=== PATIENT | male | born 1970 | race American Indian/Alaskan Native ===

== ENCOUNTER 2024-08-19 07:57 | Outpatient (AMB) | payer BC, SELFPAY ==
--- OUTSIDE RECORDS SUMMARY | 2024-08-19 08:06 | XMS_ITS | Clinical Summary ---
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 Do not start before January 06, 2023. 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 30 packet 01/04/2023 Active Active Problems Problem Noted Date Diagnosed Date Sleep apnea Overview (12/21/2022): USES CPAP Assessment & Plan (12/21/2022 8:23 AM EDT): Wears CPAP as prescribed. Patient to follow up with provider for SAKINA as previously directed. Obesity (BMI 30-39.9) Assessment & Plan (12/21/2022 8:23 AM EDT): BMI: . Diet, exercise and lifestyle modifications. Encounters Date Type Department Care Team Description 06/03/2024 2:30 PM EDT Office Visit [facility] Urologic Surgery [address] [id number] Tavo Sheth MD Anterior urethral stricture (Primary Dx); BXO (balanitis xerotica obliterans) 06/03/2024 Orders Only [facility] Urologic Surgery [address] [id number] Tavo Sheth MD 06/03/2024 Travel from Last 3 Months Family History Medical History Relation Name Comments Lymphoma Daughter chemotherapy an d radiation Colon cancer Father surgery only Esophageal cancer Maternal Grandmother no history of tobacco use Leukemia Mother chemotherapy, r adiation, and bone marrow transplant; around a year after diagnosis Throat cancer Paternal Uncle 2 tobacco us e Prostate cancer Paternal Uncle 3 >50 year s old, of metastatic disease Cancer, Bladder Neg Hx Cancer, Kidney Neg Hx Cancer, Prostate Neg Hx Relation Name Status Comments Daughter Alive Father Alive Granddaughter 1 Alive Granddaughter 2 Alive Granddaughter 3 Alive Maternal Aunt 1 (Age 70) Maternal Aunt 2 Alive Maternal Cousin 1 Alive Maternal Cousin 2 Alive Maternal Cousin 3 Alive Maternal Cousin 4 Alive Maternal Cousin 5 Alive Maternal Cousin 6 Alive Maternal Cousin 7 Alive Maternal Cousin 8 Alive Maternal Cousin 9 Alive Maternal Grandfather Maternal Grandmother (Age 70s) Maternal Uncle 1 Alive Maternal Uncle 2 Alive Mother (Age 40s) Nephew Alive Niece Alive Paternal Aunt 1 Alive Paternal Aunt 2 Alive Paternal Aunt 3 Alive Paternal Cousin 1 Alive Paternal Cousin 2 Alive Paternal Cousin 3 Alive Paternal Cousin 4 Alive Paternal Cousin 5 Alive Paternal Cousin 6 Alive Paternal Cousin 7 Alive Paternal Cousin 8 Alive Paternal Cousin 9 Alive Paternal Cousin 10 Alive Paternal Cousin 11 Alive Paternal Cousin 12 Alive Paternal Cousin 13 Alive Paternal Cousin 14 Alive Paternal Cousin 15 Alive Paternal Cousin 16 Alive Paternal Cousin 17 Alive Paternal Cousin 18 Alive Paternal Cousin 19 Alive Paternal Cousin 20 Alive Paternal Cousin 21 Alive Paternal Grandfather (Age 70-89) Paternal Grandmother (Age 70-89) Paternal Uncle 1 Alive Paternal Uncle 2 Paternal Uncle 3 Paternal Uncle 4 Paternal Uncle 5 Sister Alive Son Alive Social History Tobacco Use Types Packs/Day Years Used Date Smoking Tobacco: Never Smokeless Tobacco: Never Tobacco Cessation:Counseling Given: Not Answered Alcohol Use Standard Drinks/Week Comments Yes 0 (1 standard drink = 0.6 oz pur e alcohol) 2x/week 5-6 drinks AUDIT-C Answer Date Recorded Q1: How often do you have a drink containing alc ohol? 2-3 times a week 12/14/2022 Q2: How many drinks containi ng alcohol do you have on a typical day when you are drinking? 5 or 6 12/14/2022 Q3: How often do you have si x or more drinks on one occasion? Weekly 12/14/2022 Sex and Gender Information Value Date Recorded Sex Assigned at Male 01/04/2023 9:13 AM EDT Legal Sex Male 2:34 PM EDT Gender Identity Male 01/04/2023 9:13 AM EDT Sexual Orientation Not on file Last Filed Vital Signs Vital Sign Reading Time Taken Comments Blood Pressure 136/81 01/04/2023 2:00 PM EDT Pulse 64 01/04/2023 2:05 PM EDT Temperature 36.1 C (97 F) 01/04/2023 2:05 PM EDT Respiratory Rate 12 01/04/2023 2:05 PM EDT Oxygen Saturation 99% 01/04/2023 2:05 PM EDT Inhaled Oxygen Concentration - - Weight 109 kg (240 lb) 06/03/2024 2:23 PM EDT Height 170.2 cm (5' 7 ) 06/03/2024 2:23 PM EDT Body Mass Index 37.59 06/03/2024 2:23 PM EDT Plan of Treatment Upcoming Encounters Date Type Department Care Team (Late st Contact Info) Description 12/08/2024 2:15 PM EDT Office Visit [facility] Urologic Surgery [address] [place] [phone] Pam Herrera PA-C [address] [place] [id number] Health Maintenance Due Date Last Done Comments Hepatitis C Virus Screening 1969 HIV Screening 1982 DTaP/Tdap/Td Vaccines (1 - Tdap) 1988 Hepatitis B Vaccines (1 of 3 - 19+ 3-dose series) 1988 Colonoscopy 2014 Pneumococcal Vaccines 50+ (1 of 1 - PCV) 2019 Zoster (Shingles) Vaccine (1 of 2) 2019 COVID-19 Vaccine (1 - season) 2023 Influenza Vaccine 10/02/2024 2022, 02/08/2021 Procedures Procedure Name Priority Date/Time Associated Diagnosis Comments UROFLOWMETRY Routine 06/03/2024 2:33 PM EDT POCT URINALYSIS DIPSTICK, AUTOMATED Routine 06/03/2024 2:32 PM EDT Anterior urethral stricture BXO (balanitis xerotica obliterans) POCT BLADDER SCAN Routine 06/03/2024 2:3 1 PM EDT Anterior urethral stricture BXO (balanitis xerotica obliterans) from Last 3 Months Results * Uroflowmetry (06/03/2024 2:33 PM EDT) Tavo Sheth MD PROCEDURE ORDERABLES Fin al Result * (ABNORMAL) POCT Urinalysis Dipstick, Automated (06/03/2024 2:32 PM EDT) Source, UA Voided Color, UA Yellow Yellow & Clear, Yellow Clarity, UA Clear Clear Glucose, UA Negative Negative Bilirubin, UA Negative Negative Ketones, UA Negative Negative Spec Grav, UA 1.010 1.005, 1.010, 1.015, 1.020, 1.025 Blood, UA Negative Negative pH, UA 6.0 5.0, 5.5, 6.0, 6.5, 7.0, 7.5, 8.0 Protein, UA Negative Negative Urobilinogen, UA 0.2 0.2, 1.0 Nitrite, UA Negative Negative Leukocyte Esterase, UA Trace(A) Negative Lot Number [id number] Adjunct Professor Of Voice Pass Pass Urine 06/03/2024 2:32 PM EDT Tavo Sheth MD POINT OF CARE TEST ORDERABL ES Final Result * POCT Bladder Scan (06/03/2024 2:31 PM EDT) Bladder Scan, Urine Volume 54 cc Urine 06/03/2024 2:31 PM EDT Tavo Sheth MD POCT ORDERABLES - IMAGING F inal Result from Last 3 Months Insurance [facility] Advance Directives * Full Code (Latest Code Status on File) Date Activated Date Inactivated Comments 01/04/2023 9:37 AM Care Teams Therapeutic Recreation Specialist Relationship Specialty Start Date End Date Alysha Arzate MD PCP - General 07/13/22
--- NOTE | 2024-08-19 12:58 | MHC.OFFVISWM ---
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 *TRACK RIDER*: Details: Start time: 12.45pm, End time: 1.30pm ?I spent 40 minutes speaking with the patient on the phone plus an additional 5 minutes reviewing and updating records for a total of 45 minutes HPI Comments Details: Previous weight loss efforts: self diet and exercise, paid programs Wakes up: 2am, Sleeps: 8pm Breakfast: 8am (gutierrez) Lunch: skips Dinner: 3pm (chicken, meat, avocado, pork, eggs) Snacks: none Exercise: has home treadmill Beverages: Coffee (2-3/d, black), tea: sometimes, soda: none, juice: none, ETOH: 2/wk (beer) PFSH Medical History (Updated 08/19/24 @ 13:13 by Rosas Miranda MD) GERD (gastroesophageal reflux disease) Obstructive sleep apnea on CPAP Obesity Surgical History (Updated 07/20/24 @ 14:51 by Sayra Davis CMA) Hx of colonoscopy Hx of hernia repair Family History (Updated 07/20/24 @ 14:53 by Sayra Davis CMA) Mother No problems noted. Father No problems noted. Daughter Mandel Syndrome Thyroid condition Daughter Thyroid condition Son No problems noted. Social History (Updated 07/20/24 @ 14:54 by Sayra Davis CMA) Alcohol intake: current Alcohol intake frequency: a few times a month Patient Tobacco Use Status: Never used Tobacco Telehealth Telehealth Telehealth Platform: Telephone Location of provider rendering services: practice address Location of patient: address on file Patient Identification confirmed using: Name, : Yes Telehealth method: voice only Patient verbally consented to treatment: Yes Patient verbally consented to billing insurance company: Yes Patient informed of any privacy concerns related to visit: Yes Minutes spent on Phone/Video with Pt.: 45 Assessment & Plan Assessment & Plan (1) Obesity: Code(s): E66.9 - Obesity, unspecified Category: Medical Qualifiers: Obesity type: due to excess calories Obesity classification: adult class 2 (BMI 35 - 39.9) Serious obesity comorbidity presence: with serious comorbidity Body mass index: BMI 38.0-38.9 Qualified Code(s): E66.812 - Obesity, class 2; E66.01 - Morbid (severe) obesity due to excess calories; Z68.38 - Body mass index [BMI] 38.0-38.9, adult Plan: 1.? Plan for lap sleeve gastrectomy. If diaphragmatic or ventral hernias are present at time of surgery, these will be repaired laparoscopically as well. I emphasized the importance of close follow-up, adherence to instructions and good communication. The surgery does not replace the need to change your lifestlyle which is the cause of the obesity problem. The surgery provides the motivation to try again to change your lifestyle, it reduces the appetite and make the transition to a better lifestyle easier and doubles the amount of weight you would lose compared to doing the lifestyle change without the surgery. You will need to be on a liquid diet with protein shakes for 2 weeks before surgery to maximize weight loss and boost your nutritional status to recover better from surgery and also for the first two weeks after surgery to let the stomach heal before we introduce other foods. After the first 2 weeks we will introduce protein bars and soft foods like scrambled eggs, cottage cheese and yogurt and after the 6th week will introduce meat, fish and cooked vegetables in small amounts. Over time you should be able to eat everything in small amounts. Side effects like nausea, vomiting, heartburn or abdominal pain are not common in the practice unless you are not following in the practice. This operation requires lifetime commitment to following in our practice and communication with me. You will much less weight and experience side effects if you don?t communicate or not following in the practice. Complications are rare and in our practice is about 1/10 of the national average. However, you can develop bleeding that may require transfusion (hasn?t happened for year in the practice), you may from complications (we did not have any deaths in the practice) and infections. Infections are usually a result of breakdown in communication or not understanding or following directions correctly. They are difficult to treat, they can happen during the first 6 weeks, they may require to be in the hospital for weeks or even months, not being able to eat by mouth and you may have drains and surgeries to try and correct the issue. Other risks and complications include possible conversion to an open procedure, leaks, small bowel obstruction, blood clots, cardiac, or pulmonary complications, as foil wrapper complications such as ulcers, insufficient weight loss and vitamin deficiencies. 2.? Nutritional counseling. Start with one premade Premier protein shake (8oz NOT THE WHOLE BOTTLE (buy at [employer], [employer] or [employer]) at 3am-5am, two protein bars (Fit Crunch protein bars, buy at [employer],?[employer] or [employer]) at 6am-8am, and 9am-11am, another premade Premier protein shake (8oz NOT THE WHOLE BOTTLE at 12pm-2pm, dinner at 3pm (10 forks of protein and 10 forks of salad/vegetables) and one more protein bar after dinner at 5pm-7pm. So you do 2 protein shakes, 3 protein bars and one meal per day. Meal to include lean meat (beef, fish, pork, turkey, chicken), or yi yogurt, or egg whites, or beans with a salad with olive oil and fruits (berries, pears, apples, kiwi). Avoid salt, breads, potatoes, rice, pasta, desserts. 3. Each shake would be drunk slowly, like coffee in a period of 2 hours. 4. Cut each bar in 4 pieces and eat each piece in 30min ?to make each bar last 2 hours. 5. I emphasized the importance of measuring accurately the food portion and measure it when serving the food in plate 6. The meal portions include 10 full-size forks of meat and 10 full-size forks of salad. You always eat the meat portion but you can replace up to 5 forks for salad/vegetables with rice, potatoes or pasta, or a fruit ?if you like. The less you do it the better weight loss will be. 7. One full-size fork is what it can be scooped on the fork without falling aside and not what can be bit with the fork. Use regular forks like those you find in a typical restaurant. 8.? Please buy the body composition scale we discussed and send me weight measurements as soon as possible and then once a week. Always include your diet and exercise plan. Alternatively come weekly at the office for weight checks and send me the measurements. 9. Goal is to lose at least 1.5-2lbs per week 10. Goal to lose 10% of your weight before surgery, which is about 26lbs. Ultimate weight goal: 220lbs before surgery 11. Please follow the diet plan exactly without any change. If you don't like something about the plan or you feel hungry you need to communicate with me so I can help you revise the plan. You should not change the plan yourself 12. To be scheduled for EGD to assess the stomach's anatomy. The possibility of biopsies was discussed. Patient needs to avoid use of NSAIDs and aspirin for 1 week prior to EGD. You must be on liquids only the day before your endoscopy. Risks of perforation and bleeding was discussed with the patient. This will be an outpatient procedure with IV sedation.
[2024-08-19 13:07] VITALS: BMI 38.6
== END 2024-08-19 13:30 | disposition home or self-care (01) ==
LOC: HO.HBS 07:57
PROVIDERS: PCP Internal Medicine; Visit Provider Surgery
DX: E66.812 Obesity, class 2 (principal); E66.01 Morbid (severe) obesity due to excess calories; Z68.38 Body mass index [BMI] 38.0-38.9, adult
CPT/HCPCS: 99204

== ENCOUNTER → 2024-08-19 07:57 | Outpatient (BNVA) | payer BC, SELFPAY | PROVIDERS: PCP Internal Medicine; Visit Provider Surgery ==

== ENCOUNTER 2024-09-11 12:29 | Outpatient (AMB) | payer BC, SELFPAY ==
--- OUTSIDE RECORDS SUMMARY | 2024-09-11 12:33 | XMS_ITS | Clinical Summary ---
Author Organization [facility] Address [address] [place] [address] Care Team Providers Care [employer] Member Name Role Phone Alysha Arzate MD Primary Care Provider [phone] Allergies No known active allergies Medications blood pressure test kit (BLOOD PRESSURE MONITOR [facility]) 1 Active cholecalciferol (VITAMIN D-3) 125 mcg (5,000 unit) capsule Take 5,000 Units by mouth daily. 8 Active clotrimazole-be tamethasone (LOTRISONE) 1-0.05 % cream Apply topically 2 (two) times a day. 1 Active diclofenac (VOLTAREN) 1 % topical gel Apply 1 g topically every 4 (four) hours. 3 Active pantoprazole (PROTONIX) 40 mg EC tablet Take 1 tablet (40 mg total) by mouth every morning on an empty stomach. 1 Active tamsulosin (FLOMAX) 0.4 mg 24 hr capsule TAKE 1 CAPSULE BY MOUTH EVERYDAY AT BEDTIME 1 Active ascorbic acid (VITAMIN C) 250 mg tablet Take 500 mg by mouth daily. Active predniSONE (DELTASONE) 10 mg tablet Take 3 tab at once for 3 days then 2 tab at once for 3 days then 1 tab daily for 3 days and finish 18 each 5 Active methocarbamoL (ROBAXIN) 750 mg tablet Take 1 tablet (750 mg total) by mouth 4 (four) times a day for 10 days. 40 each 5 Active lidocaine (LIDODERM) 5 % patch Apply 1 patch topically 1 (one) time each day. Apply to painful area 12 hours per day, remove for 12 hours. 90 each 5 09/21/19 25 Active Active Problems Problem Noted Date Diagnosed Date Obesity (BMI 30-39.9) 09/15/2023 Overview (10/30/2023): Last Assessment & Plan: BMI: . Diet, exercise and lifestyle modifications. Sleep apnea 09/15/2023 Overview (10/30/2023): USES CPAP Last Assessment & Plan: Wears CPAP as prescribed. Patient to follow up with provider for SAKINA as previously directed. Cough 04/10/2016 Disorder affecting the body's metabolism 017 Elevated fasting blood sugar 04/10/2016 Essential hypertriglyceridemia 04/10/2016 Hypercholesterolemia 04/10/2016 Pain in soft tissues of limb 04/10/2016 Rash 04/10/2016 Snores 04/10/2016 Sprain of sacroiliac region 04/10/2016 Vitamin D deficiency 04/10/2016 Varicose veins of lower leg 04/10/2016 Encounters Date Type Department Care Team Description 07/20/2024 1:30 PM EDT Telemedicine [address] [address] Alysha Arzate MD Elevated fasting blood sugar (Primary Dx); Hypercholesterolemia; Hypertriglyceridemia; Vitamin D deficiency 06/22/2024 1:00 PM EDT Office Visit [address] [phone] Alysha Arzate MD Acute right-sided low back pain without sciatica (Primary Dx); Sprain of low back, initial encounter from Last 3 Months Immunizations Name Administration Dates Next Due Hepatitis A-Hepatitis B Adult (Twinrix) 18yo and older 04/26/2016 Influenza Quadrivalent, 0.5m l, preservative free (Fluarix; FluLaval; Fluzone) ages 6mo and older (Afluria) 3yo and older 2022,02/08/2021 Surgical History Surgery Date Site/Laterality Comments HERNIA REPAIR PROCEDURE:HERNIA REPAIR;COMMENT:childhood UPPER GASTROINTESTINAL ENDOSCOPY 09/30/2020 N/A PROCEDURE:UPPER GASTROINTESTINAL ENDOSCOPY;COMMENT:Procedure: UPPER ENDOSCOPY-EGD WITH BIOPSY; Surgeon: Jf Funes MD; Location: [facility]; Service: Bariatrics; Laterality: N/A; Family History Medical History Relation Name Comments Colon cancer Father Colon polyps Neg Hx Relation Name Status Comments Father Social History Tobacco Use Types Packs/Day Years Used Date Smoking Tobacco: Never Smokeless Tobacco: Never Tobacco Cessation:Counseling Given: Not Answered Alcohol Use Standard Drinks/Week Comments Yes 0 (1 standard drink = 0.6 oz pur e alcohol) Sex and Gender Information Value Date Recorded Sex Assigned at Not on file Legal Sex Male 5:20 AM EST Gender Identity Not on file Sexual Orientation Not on file Obstetrics History Last Filed Vital Signs Vital Sign Reading Time Taken Comments Blood Pressure 140/82 06/22/2024 1:45 PM EDT Pulse 78 06/22/2024 1:45 PM EDT Temperature 36.6 C (97.8 F) 06/22/2024 1:45 PM EDT Respiratory Rate 16 06/22/2024 1:45 PM EDT Oxygen Saturation 98% 06/22/2024 1:45 PM EDT Inhaled Oxygen Concentration - - Weight 113 kg (249 lb 4.8 oz) 06/22/2024 1:45 PM EDT Height 168.9 cm (5' 6.5 ) 06/22/2024 1:45 PM EDT Body Mass Index 39.64 06/22/2024 1:45 PM EDT Plan of Treatment Upcoming Encounters Date Type Department Care Team ([facility] st Contact Info) Description 06/14/2025 1:00 PM EDT Office Visit [facility] [address] [facility] [address] [place] [address] Alysha Arzate MD [address] [facility] [address] [place] [address] Health Maintenance Due Date Last Done Comments DTaP,Tdap,and Td Vaccines (1 - Tdap) 1988 Hepatitis B Vaccines (2 of 3 - Hep B Twinrix 3-dose series) 05/24/2016 04/26/2016 Pneumococcal Vaccine: 50+ Years (1 of 1 - PCV) 2019 Zoster Vaccines (1 of 2) 2019 COVID-19 Vaccine (1 - 2023-2 5 season) 2023 Influenza Vaccine (#1) 2024 3, 02/08/2021 Depression Screening 06/08/2025 06/08/2024, 06/03/2023 Social Influencers of Health Screening 06/08/2025 06/08/2024 Cholesterol Screening (Lipid Panel) 06/16/2029 06/16/2024, 06/10/2023 Colorectal Cancer Screening: Colonoscopy 05/27/2030 05/27/2020 Hepatitis A Vaccines Aged Out 04/26/2016 No long er eligible based on patient's age to complete this topic HIV Screening Completed 05/21/2022 Hepatitis C Screening Completed 05/21/2022 HIB Vaccines Aged Out No longer eligi ble based on patient's age to complete this topic HPV Vaccines Aged Out No longer eligi ble based on patient's age to complete this topic IPV Vaccines Aged Out No longer eligi ble based on patient's age to complete this topic MMR Vaccines Aged Out No longer eligi ble based on patient's age to complete this topic Meningococcal ACWY Vaccine Aged Out N o longer eligible based on patient's age to complete this topic Meningococcal B Vaccine Aged Out No l onger eligible based on patient's age to complete this topic Pneumococcal Vaccine: Pediatrics (0 to 5 Years) and At-Risk Patients (6 to 49 Years) Aged Out No longer eligible b ased on patient's age to complete this topic RSV Immunization Patients Under 20 months Aged Out No longer eligible b ased on patient's age to complete this topic Varicella Vaccines Aged Out No longer eligible based on patient's age to complete this topic Procedures Procedure Name Priority Date/Time Associated Diagnosis Comments ..ADVANCED WRITTEN NOTIFICATION TEST REFUSAL Routine 06/16/2024 10:26 AM EDT CBC WITH AUTO DIFFERENTIAL Routine 06/16/2024 10:26 AM EDT Annual physical exam Vitamin D deficiency THYROXINE FREE Routine 06/16/2024 10:26 AM EDT Annual physical exam Vitamin D deficiency THYROID STIMULATING HORMONE Routine 06/16/2024 10:26 AM EDT Annual physical exam Vitamin D deficiency PROSTATE SPECIFIC ANTIGEN SCREEN Routine 06/16/2024 10:26 AM EDT Annual physical exam Vitamin D deficiency VITAMIN D 25 HYDROXY Routine 06/16/2024 10:26 AM EDT Annual physical exam Vitamin D deficiency CBC AND DIFFERENTIAL Routine 06/16/2024 10:26 AM EDT Annual physical exam Vitamin D deficiency HEMOGLOBIN A1C Routine 06/16/2024 10:26 AM EDT Annual physical exam Vitamin D deficiency LIPID PANEL Routine 06/16/2024 10:26 AM EDT Annual physical exam Vitamin D deficiency COMPREHENSIVE METABOLIC PANEL Routine 06/16/2024 10:26 AM EDT Annual physical exam Vitamin D deficiency HM DEPRESSION SCREENING Routine 06/03/2023 HM HEPATITIS C SCREENING Routine 05/21/2022 HM HIV SCREENING Routine 05/21/2022 HM COLONOSCOPY Routine 05/27/2020 from Last 3 Months or Most Recently Relevant to Health Maintenance Results * Prostate specific antigen screen (06/16/2024 10:26 AM EDT) Prostatic Specific Antigen Total 3.07 < OR = 4.00 ng/mL [facility] [employer] Comment: The total PSA value from this assay system is standardized against the WHO standard. The test result will be approximately 20% lower when compared to the equimolar-standardized total PSA (Kip Ramon). Comparison of serial PSA results should be interpreted with this fact in mind. This test was performed using the Siemens chemiluminescent method. Values obtained from different assay methods cannot be used interchangeably. PSA levels, regardless of value, should not be interpreted as absolute evidence of the presence or absence of disease. Blood Venous blood specimen / Unknown 06/16/2024 10:26 AM EDT 06/16/2024 10:27 AM EDT [facility] [facility] ([facility]) - 06/16/2024 10:54 PM EDT FASTING:YES FASTING: YES us Alysha Arzate MD LAB BLOOD ORDERABLES Final R esult Performing Organization Address [facility] de Phone Number [employer] [facility] ([facility]) [facility] [address] [place] [address] * Advanced written Notification test refusal (06/16/2024 10:26 AM EDT) [facility] Comment: Be advised that your patient has indicated on the advance written notice their decision not to receive the following laboratory tests. As a result, the tests will not be performed. Awn Test Refused [id number] [facility] 06/16/2024 10:2 6 AM EDT 06/16/2024 10:27 AM EDT [facility] [employer] [facility] ([facility]) - 06/16/2024 10:54 PM EDT FASTING:YES FASTING: YES us Alysha Arzate MD LAB BLOOD ORDERABLES Final R esult Performing Organization Address [facility] de Phone Number [employer] [facility] ([facility]) [facility] [address] [place] [phone] * CBC auto differential (06/16/2024 10:26 AM EDT) [facility] White Blood Cell Count 5.9 3.8 - 10.8 Thousand/u L [facility] RBC Count 5.04 4.20 - 5.80 Million/uL [facility] Hemoglobin 14.9 13.2 - 17.1 g/dL [facility] Hematocrit 44.6 38.5 - 50.0 % [facility] MCV 88.5 80.0 - 100.0 fL [facility] [employer] MCH 29.6 27.0 - 33.0 pg [facility] MCHC 33.4 32.0 - 36.0 g/dL [facility] Comment: For adults, a slight decrease in the calculated MCHC value (in the range of 30 to 32 g/dL) is most likely not clinically significant; however, it should be interpreted with caution in correlation with other red cell parameters and the patient's clinical condition. RDW 12.6 11.0 - 15.0 % [facility] Platelet Count 254 140 - 400 Thousand/u L [facility] MPV 11.1 7.5 - 12.5 fL [facility] Absolute Neutrophil 2,578 1,500 - 7,800 cells/uL [facility] Absolute Lymphocytes 2,384 850 - 3,900 cells/uL [facility] Absolute Monocytes 690 200 - 950 cells/uL [facility] Absolute Eosinophils 218 15 - 500 cells/uL [facility] Absolute Basophils 30 0 - 200 cells/uL [facility] Neutrophils 43.7 % [facility] Lymphocytes 40.4 % [facility] Monocytes 11.7 % [facility] Eosinophils 3.7 % [facility] Basophils 0.5 % [facility] Blood Venous blood specimen / Unknown 06/16/2024 10:26 AM EDT 06/16/2024 10:27 AM EDT Narrative [facility] ([facility]) - 06/16/2024 10:54 PM EDT FASTING:YES FASTING: YES Alysha Arzate MD LAB BLOOD ORDERABLES Final R esult [facility] ([facility]) [facility] [address] [place] [phone] * Vitamin D 25 hydroxy (06/16/2024 10:26 AM EDT) Vitamin D 25-Hydroxy Level 61 30 - 100 ng/mL [facility] Comment: Vitamin D Status 25-OH Vitamin D: Deficiency: <20 ng/mL Insufficiency: 20 - 29 ng/mL Optimal: > or = 30 ng/mL For 25-OH Vitamin D testing on patients on D2-supplementation and patients for whom quantitation of D2 and D3 fractions is required, the [facility]TM) 25-OH VIT D, (D2,D3), LC/MS/MS is recommended: order code 04936 (patients >2yrs). See Note 1 Note 1 For additional information, please refer to http://education.Ciashop/faq/BZD923 (This link is being provided for informational/ educational purposes only.) Blood Venous blood specimen / Unknown 06/16/2024 10:26 AM EDT 06/16/2024 10:27 AM EDT [facility]) - 06/16/2024 10:54 PM EDT FASTING:YES FASTING: YES us Alysha Arzate MD LAB BLOOD ORDERABLES Final R esult Performing Organization Address [facility] de Phone Number [employer] [facility] ([facility]) [facility] [address] [place] [phone] * Thyroid stimulating hormone (06/16/2024 10:26 AM EDT) Thyroid Stimulating Hormone (TSH) 2.70 0.40 - 4.50 mIU/L [facility] Blood Venous blood specimen / Unknown 06/16/2024 10:26 AM EDT 06/16/2024 10:27 AM EDT [facility]) - 06/16/2024 10:54 PM EDT FASTING:YES FASTING: YES us Alysha Arzate MD LAB BLOOD ORDERABLES Final R esult Performing Organization Address [facility] Co de Phone Number [facility] [address] [place] [phone] * Thyroxine free (06/16/2024 10:26 AM EDT) T4 (Thyroxine) Free 1.3 0.8 - 1.8 ng/dL [facility] Blood Venous blood specimen / Unknown 06/16/2024 10:26 AM EDT 06/16/2024 10:27 AM EDT [email or web address] [place] ([facility]) - 06/16/2024 10:54 PM EDT FASTING:YES FASTING: YES Alysha Arzate MD LAB BLOOD ORDERABLES Final R esult Performing Organization Address City/[facility]/ZIP Co de Phone Number [employer] [facility] ([facility]) [facility] [address] [place] [phone] * Hemoglobin A1c (06/16/2024 10:26 AM EDT) Pathologist [facility] Hemoglobin A1C 5.6 <5.7 % [facility] Comment: For the purpose of screening for the presence of diabetes: <5.7% Consistent with the absence of diabetes 5.7-6.4% Consistent with increased risk for diabetes (prediabetes) > or =6.5% Consistent with diabetes This assay result is consistent with a decreased risk of diabetes. Currently, no consensus exists regarding use of hemoglobin A1c for diagnosis of diabetes in children. According to [place] Diabetes Association (ADA) guidelines, hemoglobin A1c <7.0% represents optimal control in non- diabetic patients. Different metrics may apply to specific patient populations. Standards of Medical Care in Diabetes(ADA). Blood Venous blood specimen / Unknown 06/16/2024 10:26 AM EDT 06/16/2024 10:27 AM EDT [facility]) - 06/16/2024 10:54 PM EDT FASTING:YES FASTING: YES us Alysha Arzate MD LAB BLOOD ORDERABLES Final R esult [facility] ([facility]) [facility] [address] [place] [phone] * (ABNORMAL) Lipid panel (06/16/2024 10:26 AM EDT) Pathologist [facility] Cholesterol Total 172 <200 mg/dL [facility] HDL Cholesterol 44 > OR = 40 mg/dL [facility] Triglycerides 61 <150 mg/dL [facility] LDL Cholesterol 113(H) mg/dL (calc) [facility] Comment: Reference range: <100 Desirable range <100 mg/dL for primary prevention; <70 mg/dL for patients with CHD or diabetic patients with > or = 2 CHD risk factors. LDL-C is now calculated using the Jose Alberto-Mandel calculation, which is a validated novel method providing better accuracy than the Friedewald equation in the estimation of LDL-C. Jose Alberto SS et al. ERASTO. 2013;310(85): 5996-8628 (http://education.Ciashop/faq/KXH847) Chol/HDLC Ratio 3.9 <5.0 (calc) [facility] Non HDL Cholesterol 128 <130 mg/dL (calc) [facility] Comment: For patients with diabetes plus 1 major ASCVD risk factor, treating to a non-HDL-C goal of <100 mg/dL (LDL-C of <70 mg/dL) is considered a therapeutic option. Blood Venous blood specimen / Unknown 06/16/2024 10:26 AM EDT 06/16/2024 10:27 AM EDT Narrative [facility] ([facility]) - 06/16/2024 10:54 PM EDT FASTING:YES FASTING: YES Alysha Arzate MD LAB BLOOD ORDERABLES Final R esult [facility] ([facility]) [facility] [address] [place] [phone] * (ABNORMAL) Comprehensive metabolic panel (06/16/2024 10:26 AM EDT) Glucose 104(H) 65 - 99 mg/dL [facility] Comment: Fasting reference interval For someone without known diabetes, a glucose value between 100 and 125 mg/dL is consistent with prediabetes and should be confirmed with a follow-up test. Urea Nitrogen (BUN) 12 7 - 25 mg/dL [facility] Creatinine 1.05 0.70 - 1.30 mg/dL [facility] eGFR 84 > OR = 60 mL/min/1 .73m2 [facility] BUN/Creatinine Ratio SEE NOTE: 6 - 22 (calc) [facility] Comment: Not Reported: BUN and Creatinine are within reference range. Sodium 138 135 - 146 mmol/L [facility] Potassium 4.3 3.5 - 5.3 mmol/L [facility] Chloride 104 98 - 110 mmol/L [facility] Carbon Dioxide 29 20 - 32 mmol/L [facility] Calcium 9.0 8.6 - 10.3 mg/dL [facility] Total Protein 6.9 6.1 - 8.1 g/dL [facility] Albumin 3.9 3.6 - 5.1 g/dL [facility] Globulin 3.0 1.9 - 3.7 g/dL (calc) [facility] Albumin/Globulin Ratio 1.3 1.0 - 2.5 (calc) [facility] Bilirubin Total 0.4 0.2 - 1.2 mg/dL [facility] Alkaline Phosphatase 83 35 - 144 U/L [facility] Aspartate aminotransferase (AST) 17 10 - 35 U/L [facility] Alanine Aminotransferase (ALT) 14 9 - 46 U/L [facility] Blood Venous blood specimen / Unknown 06/16/2024 10:26 AM EDT 06/16/2024 10:27 AM EDT Narrative [facility] ([facility]) - 06/16/2024 10:54 PM EDT FASTING:YES FASTING: YES us Alysha Arzate MD LAB BLOOD ORDERABLES Final R esult [facility] ([facility]) [facility] [address] [phone] * Depression Screening (06/03/2023) [facility] Depression Screening abstracted Historical Provider HEALTH MAINTENANCE Final Result * HIV Screening (05/21/2022) Pathologist [facility] HIV Screening abstracted Historical Provider HEALTH MAINTENANCE Final Result * Hepatitis C Screening (05/21/2022) Hepatitis C Screening abstracted Historical Provider HEALTH MAINTENANCE Final Result * Colonoscopy (05/27/2020) Pathologist [facility] Colonoscopy abstracted,no interpretation Anatomical Region Laterality Modality Other Historical Provider HEALTH MAINTENANCE Final Result from Last 3 Months or Most Recently Relevant to Health Maintenance Insurance [place] [address] Care Teams [employer] Member Relationship Specialty Start Date End Date Alysha Arzate MD [address] [address] PCP - General Internal Medicine 06/08/24
--- OUTSIDE RECORDS SUMMARY | 2024-09-11 12:33 | XMS_ITS | Clinical Summary ---
Author Organization [facility] Address [address] [place] [id number] Care Team Providers Care Front Desk Administrator Name Role Phone Alysha Arzate MD Primary Care Provider [phone] Allergies No known active allergies Medications oxyCODONE [...] BMI: . Diet, exercise and lifestyle modifications. Family History Medical History Relation Name Comments [...] Team (Late st Contact Info) Description 12/08/2024 2:00 PM EDT Office Visit [facility] [place] [phone] Pam Herrera PA-C [address] [place] [address] Health Maintenance Due Date Last Done Comments Hepatitis C Virus Screening 1969 HIV Screening 1982 DTaP/Tdap/Td Vaccines (1 - Tdap) 1988 Hepatitis B Vaccines (1 of 3 - 19+ 3-dose series) 1988 Colonoscopy 2014 Pneumococcal Vaccines 50+ (1 of 1 - PCV) 2019 Zoster (Shingles) Vaccine (1 of 2) 2019 COVID-19 Vaccine ( season) 2023 Influenza Vaccine 10/02/2024 2022, 02/08/2021 Insurance [facility] [employer] Advance Directives * Full Code (Latest Code Status on File) Date Activated Date Inactivated Comments 01/04/2023 9:37 AM Care Teams Front Desk Administrator Relationship Specialty Start Date End Date Alysha Arzate MD PCP - General 07/13/22
--- OUTSIDE RECORDS SUMMARY | 2024-09-11 12:33 | XMS_ITS ---
Author Name [facility] Organization Unknown History of Medication Use Medication Directions Dispensed Refills Start Date End Date Stat us dexAMETHasone (DECADRON) injection 8 mg 06/22/2024 5 completed ketorolac (TORADOL) injection 60 mg 60 mg, intramuscular, Once, On Sat06/22/24 at 1445, For 1 dose 06/22/2024 5 completed lidocaine (LIDODERM) 5 % patch Apply 1 patch topically 1 (one) time each day. Apply to painful area 12 hours per day, remove for 12 hours. 06/22/2024 active methocarbamoL (ROBAXIN) 750 mg tablet Take 1 tablet (750 mg total) by mouth 4 (four) times a day for 10 days. 06/22/2024 active predniSONE (DELTASONE) 10 mg tablet Take 3 tab at once for 3 days then 2 tab at once for 3 days then 1 tab daily for 3 days and finish 06/22/2024 active polyethylene glycol (miraLAx) 17 g packet Take 1 packet (17 g total) by mouth daily as needed for constipation. 01/04/2023 3 active oxyCODONE (ROXICODONE) 5 MG immediate release tablet Take 1 tablet (5 mg total) by mouth 4 times daily (every 6 hours) as needed for moderate pain or severe pain. Max Daily Amount: 20 mg 01/04/2023 active phenazopyridine (PYRIDIUM) 200 MG tablet Take 1 tablet (200 mg total) by mouth 3 (three) times a day as needed for bladder spasms. 01/04/2023 active gadobutrol (GADAVIST) injection 10 mL 10 mL, Intravenous, Once in imaging, contrast, Starting on Sat08/31/22 at 1149, For 1 dose, Radiology Appointment 08/31/2022 3 completed diclofenac (VOLTAREN) 1 % topical gel Apply 1 g topically every 4 (four) hours. 05/04/2022 active lidocaine (ZTlido) 1.8 % adhesive patch,medicated Apply 1.8 Act topically daily. 04/30/2022 5 aborted methocarbamoL (ROBAXIN) 750 mg tablet Take 1 tablet (750 mg total) by mouth every 6 (six) hours. 04/30/2022 5 aborted clotrimazole-betameth asone (LOTRISONE) 1-0.05 % cream Apply topically 2 (two) times a day. 02/09/2021 active pantoprazole (PROTONIX) 40 mg EC tablet Take 1 tablet (40 mg total) by mouth every morning on an empty stomach. 11/25/2020 active tamsulosin (FLOMAX) 0.4 mg 24 hr capsule TAKE 1 CAPSULE BY MOUTH EVERYDAY AT BEDTIME 11/12/2020 active blood pressure test kit (BLOOD PRESSURE MONITOR MIS) 03/22/2020 active cholecalciferol (VITAMIN D-3) 125 mcg (5,000 unit) capsule Take 5,000 Units by mouth daily. 07/18/2017 active ascorbic acid (VITAMIN C) 250 mg tablet Take 500 mg by mouth daily. active Problems Problem Status Onset Date Problem Type Date of Resolution Source Vitamin D deficiency active 7 ProblemAct [facility] Elevated fasting blood sugar active 7 ProblemAct [facility] Obesity (BMI 30-39.9) active 2023-09-02 4 ProblemAct [facility] Disorder affecting the body's metabolism active 7 ProblemAct [facility] Hypercholesterolemia active 7 ProblemAct [facility] Acute right-sided low back pain without sciatica active EncounterDiagnosisAct [facility] Sprain of low back, initial encounter active EncounterDiagnosisAct [facility] Cough active 7 ProblemAct [facility] Sprain of sacroiliac region active 7 ProblemAct [facility] Rash active 7 ProblemAct [facility] Snores active 7 ProblemAct [facility] Essential hypertriglyceridemia active 7 ProblemAct [facility] Varicose veins of lower leg active 7 ProblemAct [facility] Sleep apnea active 2023-09-02 4 ProblemAct [facility] Pain in soft tissues of limb active 7 ProblemAct [facility] Anterior urethral stricture active EncounterDiagnosisAct [facility] Sleep apnea active ProblemAct [facility] Obesity (BMI 30-39.9) active ProblemAct [facility] BXO (balanitis xerotica obliterans) active EncounterDiagnosisAct [facility] Immunizations Vaccine Date Source Lot Number Status Influenza Quadrivalent, 0.5m l, preservative free (Fluarix; FluLaval; Fluzone) ages 6mo and older (Afluria) 3yo and older 2022 [facility] completed Influenza Quadrivalent, 0.5m l, preservative free (Fluarix; FluLaval; Fluzone) ages 6mo and older (Afluria) 3yo and older 02/08/2021 [facility] completed Hepatitis A-Hepatitis B Adul t (Twinrix) 18yo and older 04/26/2016 [facility] [id number] completed Encounters Encounter Type Encounter Reason Primary Diagnosis Location Date Ambulatory Impaired fasting glucose Impaired fasting glucose [facility] 07/20/2024 Ambulatory Back Pain Low back pain, unspecified [facility] 06/22/2024 Ambulatory Annual Exam Encounter for general adult medical examination without abnormal findings [facility] 06/08/2024 Ambulatory Unspecified anterior urethral stricture, male Unspecified anterior urethral stricture, male [facility] 06/03/2024 Ambulatory Unspecified anterior urethral stricture, male Unspecified anterior urethral stricture, male [facility] 12/04/2023 Ambulatory Unspecified anterior urethral stricture, male Unspecified anterior urethral stricture, male [facility] 09/30/2023 Ambulatory Other microscopic hematuria Other microscopic hematuria [facility] 05/07/2023 Ambulatory Other microscopic hematuria Other microscopic hematuria [facility] 02/04/2023 Ambulatory Dysuria Dysuria [facility] 01/07/2023 Ambulatory Other bulbous urethral stricture, male Other bulbous urethral stricture, male [facility] 01/04/2023 Ambulatory Encounter for other preprocedural examination Encounter for other preprocedural examination [facility] 12/21/2022 Ambulatory Dysuria Dysuria [facility] 12/04/2022 Ambulatory Fhx GI Cancer Fhx GI Cancer [facility] 09/05/2022 Ambulatory [facility] 09/05/2022 Ambulatory Nodular prostate without lower urinary tract symptoms [facility] 08/31/2022 Ambulatory Benign prostatic hyperplasia with lower urinary tract symptoms [facility] 07/13/2022 Care Team Organization Name Specialty Phone Email Start Date End Da te [facility] 06/09/2024 [facility] 06/08/2024 [facility] 06/04/2024 025 [facility] BISI MOTA Primary [facility] 08/31/2022 025 [facility] PCP,No Primary Care 07/13/2022 07/03/2024 [facility]isi Mota [facility] 07/13/2022 023 [facility] NO PCP Primary Care 07/13/2022 07/13/2022 [facility], PAlbaCBENNY GARCIA Primary Care 11/18/2020 10/21/2023
--- OUTSIDE RECORDS SUMMARY | 2024-09-11 12:34 | XMS_ITS | Clinical Summary ---
Author Organization [facility] Address [address] [place] [address] Care Team Providers Care Roof Foreman Name Role Phone An Arzate APRN Primary Care Provider Unav ailable Allergies No known active allergies Medications Medication Sig Dispensed Refills Start Date End Date Status Cholecalciferol (VITAMIN D3) 5000 units CAPS Take 5,000 Units by mouth daily. 30 capsule 6 07/18/2017 Active Blood Pressure Monitoring (OMRON 5 SERIES BP MONITOR) DANIELLA 0 03/22/2020 Active vitamin C (ASCORBIC ACID) 250 MG tablet Take 500 mg by mouth daily. 0 Active pantoprazole (Protonix) 40 MG tablet Take 1 tablet (40 mg total) by mouth every morning on an empty stomach. 30 tablet 2 11/25/2020 Active tamsulosin (FLOMAX) 0.4 MG CAPS TAKE 1 CAPSULE BY MOUTH EVERYDAY AT BEDTIME 0 11/12/2020 Active clotrimazole-betame thasone (LOTRISONE) cream Apply topically 2 (two) times a day. 60 g 1 02/09/2021 Active methocarbamol (ROBAXIN) 750 MG tablet Take 1 tablet (750 mg total) by mouth every 6 (six) hours. 60 tablet 0 04/30/2022 Active Lidocaine (ZTlido) 1.8 % PTCH Apply 1.8 Act topically daily. 90 patch 0 04/30/2022 Active Diclofenac Sodium (Voltaren) 1 % GEL Apply 1 g topically every 4 (four) hours. 350 g 2 05/04/2022 Active Active Problems Problem Noted Date Diagnosed Date Obesity (BMI 30-39.9) 09/15/2023 09/15/2023 Overview: Last Assessment & Plan: BMI: . Diet, exercise and lifestyle modifications. Sleep apnea 09/15/2023 09/15/2023 Overview: USES CPAP Last Assessment & Plan: Wears CPAP as prescribed. Patient to follow up with provider for SAKINA as previously directed. Cough 04/10/2016 Essential hypertriglyceridemia 04/10/2016 Hypercholesterolemia 04/10/2016 Elevated fasting blood sugar 04/10/2016 Sprain of unspecified site of sacroiliac region 04/10/2016 Disorder affecting the body's metabolism 017 Pain in soft tissues of limb 04/10/2016 Rash 04/10/2016 Snores 04/10/2016 Varicose veins 04/10/2016 Vitamin D deficiency 04/10/2016 Immunizations Name Administration Dates Next Due Hep A / Hep B 04/26/2016 Influenza Quad (Fluarix/Fluz one/FluLaval) 0.5mL (SD-IIV4) 2022,02/08/2021 Family History Medical History Relation Name Comments Colon cancer Father Colon polyps Neg Hx Relation Name Status Comments Father Social History Tobacco Use Types Packs/Day Years Used Date Smoking Tobacco: Never Smokeless Tobacco: Never Tobacco Cessation:Counseling Given: Not Answered Alcohol Use Standard Drinks/Week Comments Yes 0 (1 standard drink = 0.6 oz pur e alcohol) socially Sex and Gender Information Value Date Recorded Sex Assigned at Male 09/28/2020 2:36 PM EDT Gender Identity Male 09/30/2020 2:16 PM EDT Sexual Orientation Not on file Job Start Date Occupation Industry Not on file Not on file Not on file Last Filed Vital Signs Vital Sign Reading Time Taken Comments Blood Pressure 120/80 06/03/2023 2:10 PM EDT Pulse 80 06/03/2023 2:10 PM EDT Temperature 36.6 C (97.9 F) 06/03/2023 2:10 PM EDT Respiratory Rate 16 06/03/2023 2:10 PM EDT Oxygen Saturation 97% 06/03/2023 2:10 PM EDT Inhaled Oxygen Concentration - - Weight 116 kg (255 lb 11.2 oz) 06/03/2023 2:10 P M EDT Height 157.5 cm (5' 2 ) 06/03/2023 2:10 PM EDT Body Mass Index 46.77 06/03/2023 2:10 PM EDT Plan of Treatment Health Maintenance Due Date Last Done Comments Hepatitis B Vaccines (2 of 3 - Hep B Twinrix 3-dose series) 05/24/2016 04/26/2016 Shingrix-Zoster Vaccine (1 of 2) 2019 BMI Counseling 06/02/2024 06/03/2023, 04/05, 02/09/2021, Additional history exists Depression Screening 06/02/2024 06/03/2023, 04/30/2022, 02/09/2021, Additional history exists Preventative Health Evaluation 06/02/2024 06/03/2023, 04/30/2022, 04/30/2022, Additional history exists Influenza Vaccine (#1) 2024 , 02/08/2021, 02/09/2020 DTap / Tdap / Td (3 - Td or Tdap) 07/19/2027 07/18/2017 (Declined), 07/06/2011 Colon Cancer Screening (Colonoscopy) 05/27/2030 05/27/2020 Hepatitis C Screening Completed 05/21/2022, 019 COVID-19 Vaccine Discontinued Pneumococcal Vaccine Aged Out No long er eligible based on patient's age to complete this topic RSV Ped < 20 months Aged Out No longe r eligible based on patient's age to complete this topic Care Teams Roof Foreman Relationship Specialty Start Date End Date An Arzate APRN PCP - General Primary Care 04/10/16
--- NOTE | 2024-09-11 13:00 | A.OFFWM_ITS ---
Intake Intake Visit Reasons: OV BH Intake Allergies No Known Allergies Allergy (Verified 08/19/24 12:58) PFSH Medical History (Updated 08/19/24 @ 13:13 by Rosas Miranda MD) GERD (gastroesophageal reflux disease) Obstructive sleep apnea on CPAP Obesity Surgical History (Updated 07/20/24 @ 14:51 by Sayra Davis CMA) Hx of colonoscopy Hx of hernia repair Family History (Updated 07/20/24 @ 14:53 by Sayra Davis CMA) Mother No problems noted. Father No problems noted. Daughter Mandel Syndrome Thyroid condition Daughter Thyroid condition Son No problems noted. Social History (Updated 07/20/24 @ 14:54 by Sayra Davis CMA) Alcohol intake: current Alcohol intake frequency: a few times a month Patient Tobacco Use Status: Never used Tobacco Behavioral Health Assessment Weight Management Therapy Therapy Notes Details Patient is a 54-year-old male presenting for an initial visit to begin a behavioral health assessment as part of the surgical weight loss program. He reports that he was initially referred by a coworker who previously underwent surgery through this program. Presenting Concerns Referral Source WMP-Provider. PT meet with Dr Bee Nazario for referral Completion of behavioral health assessment as part of process for weight-loss surgery. Precipitating Event Obesity. Living Situation Current Living Situation Own At risk of losing current housing? No Satisfied with current living situation? Yes Comments PT lives with , and 30 y/o son. Food/Weight/Diet Expectations of change PT started the program on 08/19/2024 at 246Lbs. Patient goals are PT is implementing the following: Current meal plan: 2 protein shakes, 3 protein bars, and one meal per day. Exercise plan: History/Relationship with food Example of meals before starting the program: Breakfast: Lunch: Dinner: Snacks: Drinks/Liquids: History/Relationship with weight Overweight since childhood. He doesn't remember when was the last time he was under 200Lbs. In the last 10 years, his weight has been in between 238 and 250 lbs. History/Relationship with dieting Weight-loss program in [place] [facility], different diets. Mx he has lost has been 15-20Lbs Social History Family history and relationship PT is 34 years ago. They have 2 daughters and 1 son and 5 grandkids. PArents . 1 siblings. Pt reports good family dynamics. Parental/Familial pole cutter obligations None reported. Developmental history and status None reported. Currently WNL. Social support , children. Community support PCP. Holiness/Spirituality Buddhist Cultural/Ethnic information . Born in [place]. Been in [place] 18 years ago. Legal Involvement and History Current or historical involvement with the legal system? None reported. Education Highest grade completed HS. Preferred learning style Auditory, Verbal, Written, Learn by doing and Visual Currently enrolled in educational program? No Interested in further educational program? 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 No Meaningful activities [place]. Financial Situation Describe current financial situation Comfortable Financial assistance? None Service Service? No Mental Health and Addiction Treatment Current/Past substance abuse? No Comments Alcohol: 2x week (sat/sun), beer and wisky (no limit) Cigarettes/Tobacco: None. Cannabis/Edibles: None. Current/Past addictive behavior concerns? No Psychiatric history PT denies ever been in crisis or inpatient for mental health. There is no history and/or current concern about SI/Sa and self-harm or other harm. Medical and Physical Health Summary Additional Medical History not covered in history None reported. Sexual History concerns None reported. Physical exam in the last year? Yes Pain Screening Current pain? No Pain in the last few months? No Questionnaires PHQ-9 Over the last 2 weeks, how often have you been bothered by any of the following problems? 1. Little interest or pleasure in doing things: several days 2. Feeling down, depressed, or hopeless: not at all 3. Trouble falling or staying asleep, or sleeping too much: not at all 4. Feeling tired or having little energy: nearly every day 5. Poor appetite or overeating: several days 6. Feeling bad about yourself - or that you are a failure or have let yourself or your family down: not at all 7. Trouble concentrating on things, such as reading the newspaper or watching television: not at all 8. Moving or speaking so slowly that other people could have noticed. Or the opposite - being so fidgety or restless that you have been moving around a lot more than usual: not at all 9. Thoughts that you would be better off or of hurting yourself in some way: not at all Total score: 5 Depression Screening Interpretation: Positive (From new PT pack completed on 07/20/2024.) Depression Screening Done: Yes Source: Developed by Drs. Pablo Burch, Kandis Boyer, Rogelio Reddy and colleagues, with an educational russell from [employer]. Binge Eating Scale Group 1 A. I don't feel self-conscious about my wt. or body size when I'm with others. B. I feel concerned about how I look to others, but it normally does not make me fell disappointed with myself C. I do get self-conscious about my appearance and wt. which makes me feel disappointed in myself. D. I feel very self-conscious about my wt. and frequently I feel intense shame and disgust for myself. I try to avoid social contacts because of my self- consciousness. Response Group 1: B Group 2 A. I don't have any difficulty eating slowly in the proper manner. B. Although I seem to gobble down foods, I don't end up feeling stuffed because of eating to much. C. At times, I tend to eat quickly and then, I feel uncomfortably full afterwards. D. I have the habit of bolting down my food, without really chewing it. When this happens I usually feel uncomfortably stuffed because I've eaten to much. Response Group 2: A Group 3 A. I feel capable to control my eating urges when I want to. B. I feel like I have failed to control my eating more than the average person. C. I feel utterly helpless when it comes to feeling in control of my eating urges. D. Because I feel so helpless about controlling my eating I have become very desperate about trying to get control. Response Group 3: A Group 4 A. I don't have the habit of eating when I'm bored. B. I sometimes eat when I'm bored, but often I'm able to get busy and get my mind off food. C. I have a regular habit of eating when I'm bored, but occasionally, I can use some other activity to get my mind off eating. D. I have a strong habit of eating when I'm bored. Nothing seems to help me breath the habit. Response Group 4: D Group 5 A. I'm usually physically hungry when I eat something. B. Occasionally, I eat something on impulse even though I really am not hungry. C. I have the regular habit of eating foods, that I might not really enjoy, to satisfy a hungry feeling even though physically, I don't need the food. D. Although I'm not physically hungry, I get a hungry feeling in my mouth that only seems to be satisfied when I eat a food, like sandwich, that fills my mouth. Sometimes, when I eat the food to satisfy my mouth hunger, I then spit the food out so I won't gain weight. Response Group 5: D Group 6 A. I don't feel any guilt or self-hate after I overeat. B. After I overeat, occasionally I feel guilt or self-hate. C. Almost all the time I experience strong guilt or self-hate after I overeat. Response Group 6: A Group 7 A. I don't lose total control of my eating when dieting even after periods when I overeat. B. Sometimes when I eat a forbidden food on a diet, I feel like I blew it and eat even more. C. Frequently, I have the habit of saying to myself, I've blown it now, why not go all the way, when I overeat on a diet. When that happens I eat more. D. I have a regular habit of starting a strict diets for myself but I break the diets by going on an eating binge. My life seems to be either a feast or famine. Response Group 7: D Group 8 A. I rarely eat so much food that I feel uncomfortably stuffed afterwards. B. Usually about once a month, I each such a quantity of food, I end up feeling very stuffed. C. I have regular periods during the month when I eat large amounts of food, either at mealtime or at snacks. D. I eat so much food that I regularly feel quite uncomfortable after eating and sometimes a bit nauseous. Response Group 8: C Group 9 A. My level of calorie intake does not go up very high or go down very low on a regular basis. B. Sometimes after I overeat, I will try to reduce my caloric intake to almost nothing to compensate for the excess calories I've eaten. C. I have a regular habit of overeating during the night. It seems that my rout ine is not to be hungry in the morning but overeat in the evening. D. In my adult years, I have had week-long periods where I practically starve myself. This follows periods when I overeat. It seems I live a life of either feast or famine. Response Group 9: B Group 10 A. I usually am able to stop eating when I want to. I know when enough is enough. B. Every so often, I experience a compulsion to eat which I can't seem to control. C. Frequently, I experience strong urges to eat which I seem unable to control, but at other times I can control my eating urges. D. I feel incapable of controlling urges to eat. I have a fear of not being able to stop eating voluntarily. Response Group 10: A Group 11 A. I don't have any problem stopping eating when I feel full. B. I usually can stop eating when I feel full but occasionally overeat leaving me feeling uncomfortably stuffed. C. I have a problem stopping eating once I start and usually I feel uncomfortably stuffed after I eat a meal. D. Because I have a problem not being able to stop eating when I want, I sometimes have to induce vomiting to relieve my stuffed feeling. Response Group 11: A Group 12 A. I seem to eat just as much when I'm with others, Family social gatherings as when I'm by myself. B. Sometimes, when I'm with other persons, I don't eat as much as I want to eat because I'm self-conscious about my eating. C. Frequently, I eat only a small amount of food when others are present, because I'm very embarrassed about my eating. D. I feel so ashamed about overeating that I pick times to overeat when I know no one will see me. I feel like a closet eater. Response Group 12: A Group 13 A. I eat three meals a day with only an occasional between meal snack. B. I eat 3 meals a day, but I also normally snack between meals. C. When I am snacking heavily, I get in the habit of skipping regular meals. D. There are regular periods when I seem to be continually eating, with no planned meals. Response Group 13: A Group 14 A. I don't think much about trying to control unwanted eating urges. B. At least some of the time, I feel my thoughts are pre-occupied with trying to control my eating urges. C. I feel that frequently I spend much time thinking about how much I ate or about trying not to eat anymore. D. It seems to me that most of my waking hours are pre-occupied by thoughts about eating or not eating. I feel like I'm constantly struggling not to eat. Response Group 14: A Group 15 A. I don't think about food a great deal. B. I have strong craving for food but they last only for brief periods of time. C. I have days when I can't seem to think about anything else but food. D. Most of my days seem to be pre-occupied with thoughts about food. I feel like I live to eat. Response Group 15: C Group 16 A. I usually know whether or not I'm physically hungry. I take the right portion of food to satisfy me. B. Occasionally, I feel uncertain about knowing whether or not I'm physically hungry. A these times it's hard to know how much food I should take to satisfy me. C. Even though I might know how many calories I should eat, I don't have any idea what is a normal amount of food for me. Response Group 16: C Binge Eating Score: 17 Score less than 17 Minimal Risk Score between 18-26 Moderate Risk Score between 27-46 High Risk Assessment & Plan Assessment & Plan (1) Adjustment disorder: Code(s): F43.20 - Adjustment disorder, unspecified (2) Inappropriate diet or eating habits: Code(s): Z72.4 - Inappropriate diet and eating habits (3) Pre-bariatric surgery psychological evaluation: Code(s): Z71.89 - Other specified counseling Plan The patient was not cleared today as the assessment was not completed. The patient will return in 2-4 weeks to continue the evaluation. Next appointment: 10/05/2024 at 12 Telehealth. Coding Level of Care Code New Pt Psy Diag Eval (80796) Patient Type New Diagnoses Adjustment disorder F43.20 Inappropriate diet or eating habits Z72.4 Pre-bariatric surgery psychological evaluation Z71.89 Time Spent (min) 60
== END 2024-09-11 14:05 | disposition home or self-care (01) ==
LOC: HO.HBST 12:30
PROVIDERS: PCP Internal Medicine; Visit Provider Counselor Mental Health
DX: F43.20 Adjustment disorder, unspecified (principal); Z72.4 Inappropriate diet and eating habits; Z71.89 Other specified counseling
CPT/HCPCS: 90791

== ENCOUNTER 2024-09-11 14:13 | Outpatient (REF) | payer BC, SELFPAY ==
--- NOTE | ~2024-09-11 | XR_ITS ---
EXAMINATION: XR CHEST 2 VIEWS HISTORY: E66.812 - Obesity, class 2 COMPARISON: There are no prior studies available for comparison. FINDINGS: PA and lateral views of the chest are submitted. The lungs are expanded and clear. There is no pleural effusion, pneumothorax, or pulmonary vascular congestion. The heart is normal in size. The bones are intact. XR/XR chest 2V IMPRESSION: Clear lungs. Electronically signed by: Pablo Gerard MD 09/11/2024 02:49 PM EDT
--- NOTE | 2024-09-11 14:29 | ECG_ITS ---
Test Reason : OBS Blood Pressure : */* mmHG Vent. Rate : 58 BPM Atrial Rate : 58 BPM P-R Int : 150 ms QRS Dur : 96 ms QT Int : 444 ms P-R-T Axes : 37 -10 9 degrees QTcB Int : 435 ms Sinus bradycardia Otherwise normal ECG No previous ECGs available Referred By: Rosas Miranda Electronically Signed By: Rishi Jorge
== END 2024-09-11 14:14 | disposition home or self-care (01) ==
LOC: HO.XRAY 14:13
PROVIDERS: PCP Internal Medicine; Visit Provider Surgery
DX: E66.812 Obesity, class 2 (principal); E66.01 Morbid (severe) obesity due to excess calories; Z68.38 Body mass index [BMI] 38.0-38.9, adult; K21.9 Gastro-esophageal reflux disease without esophagitis; G47.33 Obstructive sleep apnea (adult) (pediatric)
CPT/HCPCS: 71046; 93005

== ENCOUNTER → 2024-09-11 14:25 | Outpatient (BNV) | payer BC, SELFPAY | PROVIDERS: PCP Internal Medicine; Visit Provider Radiology Diagnostic Radiology | DX: E66.812 Obesity, class 2 (principal); E66.01 Morbid (severe) obesity due to excess calories; K21.9 Gastro-esophageal reflux disease without esophagitis; G47.33 Obstructive sleep apnea (adult) (pediatric); Z68.38 Body mass index [BMI] 38.0-38.9, adult | CPT/HCPCS: 71046 ==

== ENCOUNTER → 2024-09-11 14:29 | Outpatient (BNV) | payer BC, SELFPAY | PROVIDERS: PCP Internal Medicine; Visit Provider Internal Medicine Cardiovascular Disease | DX: R00.1 Bradycardia, unspecified (principal) | CPT/HCPCS: 93010 ==

== ENCOUNTER 2024-10-05 12:03 | Outpatient (AMB) | payer BC, SELFPAY ==
--- NOTE | 2024-10-05 12:03 | MHC.WMTHER ---
Intake Intake Visit Reasons: VIDEO BH F/U Allergies No Known Allergies Allergy (Verified 08/19/24 12:58) [facility] Medical History (Updated 08/19/24 @ 13:13 by Rosas Miranda MD) GERD (gastroesophageal reflux disease) Obstructive sleep apnea on CPAP Obesity Surgical History (Updated 07/20/24 @ 14:51 by Sayra Davis CMA) Hx of colonoscopy Hx of hernia repair Family History (Updated 07/20/24 @ 14:53 by Sayra Davis CMA) Mother No problems noted. Father No problems noted. Daughter Mandel Syndrome Thyroid condition Daughter Thyroid condition Son No problems noted. Social History (Updated 07/20/24 @ 14:54 by Sayra Davis CMA) Alcohol intake: current Alcohol intake frequency: a few times a month Patient Tobacco Use Status: Never used Tobacco Behavioral Health Assessment Weight Management Therapy Therapy Notes Details Patient is a 54-year-old male presenting for his second visit to continue the behavioral health assessment as part of the surgical weight loss program. He reports being referred by a coworker who previously underwent bariatric surgery through this program. The patient denies any history of mental health treatment, psychiatric hospitalizations, or behavioral health crises. He also reports no current or past suicidal ideation, suicide attempts, self-harm behaviors, or thoughts of harm toward others. There is no history of substance use. The patient does not endorse stress-related or emotional eating. Results from the Binge Eating Scale (BES) indicate a low risk for binge eating behavior. Scores on the PHQ-9 show no active symptoms of depression. Additionally, the mental status examination is within normal limits, with no evidence of cognitive or emotional impairment. From a behavioral health perspective, the patient is cleared to proceed with the surgical weight loss program at this time. Presenting Concerns Referral Source WMP-Provider. PT meet with Dr Bee Nazario for referral Completion of behavioral health assessment as part of process for weight-loss surgery. Precipitating Event Obesity. Living Situation Current Living Situation Own At risk of losing current housing? No Satisfied with current living situation? Yes Comments PT lives with , and 30 y/o son. Food/Weight/Diet Expectations of change PT started the program on 08/19/2024 at 246Lbs. Recent weight as of today 10/05/2024 232Lbs. Initial goal to lose 10% of your weight before surgery, which is about 26lbs. Ultimate weight goal: 220lbs before surgery Patient would like to be at least 180Lbs. He also wants to continue being disciplined wuth eating/physical activity and hopefully stop using the sleep apnea machine. PT is implementing the following: Current meal plan: 2 protein shakes, 3 protein bars, and one meal per day. Exercise plan: treadmill or outdoor walk. Does 1 Hr or 300-320 peggy each time when uses the treadmill. Scale: yes communication w/ provider: Mondays. History/Relationship with food The patient reports a preference for traditional -style meals and previously consumed alcohol heavily on weekends. He notes a tendency to snack frequently when not working, with daily caloric intake varying depending on how busy his day is. He identifies several contributing factors to his weight gain and difficulty losing weight, including eating late at night, frequent dining out, and consistently skipping meals. Additionally, he worked night shifts for several years, which may have further disrupted his eating patterns. Example of meals before starting the program: Breakfast: anything from reanna, will order eggs w/ gutierrez or a sandwich With a coffee with cream and sugar. Lunch: Skips or boiled verdura with meat/fish or corn beef. Dinner: Mostly /Citizen of [place] style. For example: rice, any type of meat, fried plantains, beans. Lasagna with rice. Snacks: None during workdays. But the days he's at home would snack all day on chips, sweets. Drinks/Liquids: Coffee (2-3/d, black), tea: sometimes - green tea, soda: none, juice: occasionally, ETOH: 2/wk (beer) History/Relationship with weight Overweight since childhood. He doesn't remember when was the last time he was under 200Lbs. In the last 10 years, his weight has been in between 238 and 250 lbs. History/Relationship with dieting The patient has previously participated in a structured weight-loss program in [place], as well as tried various commercial diets, including Herbalife. The maximum weight loss achieved has been approximately 15?20 lbs. He typically adheres to a diet for about 3?4 months before discontinuing, either due to frustration with lack of desired results or fatigue with repetitive food choices. Binge Eating Do you frequently eat large amounts of food in short periods of time, not feeling physically hungry? Yes Do you feel out of control when you eat a large amount of food in a short period of time? No Do you eat large amounts of food rapidly and typically alone? No Night Eating Do you wake up at least once during the night to eat? No If you wake up in the night, do you find that it is necessary to eat something in order to fall back asleep? No Do you have little or no appetite in the morning and feel very hungry in the evening, often overeating between dinner and when you go to bed? Yes Social History Family history and relationship PT is 34 years ago. They have 2 daughters and 1 son and 5 grandkids. PArents . 1 siblings. Pt reports good family dynamics. Parental/Familial radiology ct technologist obligations None reported. Developmental history and status None reported. Currently [facility]. Social support , children. Community support PCP. Jain/Spirituality Methodist Cultural/Ethnic information . Born in [place]. Been in [place] 18 years ago. Legal Involvement and History Current or historical involvement with the legal system? None reported. Education Highest grade completed HS. Preferred learning style Auditory, Verbal, Written, Learn by doing and Visual Currently enrolled in educational program? No Interested in further educational program? No Educational Interests/Skills CDL license. Employment Employment Status [employer] (passenger coach driver for [employer] Wants help to find employment? No Meaningful activities Alvin. Financial Situation Describe current financial situation Comfortable Financial assistance? None Service Service? No Mental Health and Addiction Treatment Current/Past substance abuse? No Comments Alcohol: 2x week (sat/sun), beer and wisky (no limit) Cigarettes/Tobacco: None. Cannabis/Edibles: None. Current/Past addictive behavior concerns? No Psychiatric history PT denies ever been in crisis or inpatient for mental health. There is no history and/or current concern about SI/SA and self-harm or other harm. Medical and Physical Health Summary Additional Medical History not covered in history None reported. Sexual History concerns None reported. Physical exam in the last year? Yes Pain Screening Current pain? No Pain in the last few months? No Medications Is the patient compliant with medications? Not applicable Does the patient have Dickson Guardian in place? Not applicable Does the patient use complimentary health approaches? No Trauma/Abuse History History of trauma? No Questionnaires PHQ-9 Over the last 2 weeks, how often have you been bothered by any of the following problems? 1. Little interest or pleasure in doing things: not at all 2. Feeling down, depressed, or hopeless: not at all 3. Trouble falling or staying asleep, or sleeping too much: not at all 4. Feeling tired or having little energy: several days 5. Poor appetite or overeating: not at all 6. Feeling bad about yourself - or that you are a failure or have let yourself or your family down: not at all 7. Trouble concentrating on things, such as reading the newspaper or watching television: not at all 8. Moving or speaking so slowly that other people could have noticed. Or the opposite - being so fidgety or restless that you have been moving around a lot more than usual: not at all 9. Thoughts that you would be better off or of hurting yourself in some way: not at all Total score: 1 Depression Screening Interpretation: Negative Depression Screening Done: Yes Source: Developed by Drs. Pablo Burch, Kandis Boyer, Rogelio Reddy and colleagues, with an educational russell from [employer]. Binge Eating Scale Group 1 A. I don't feel self-conscious about my wt. or body size when I'm with others. B. I feel concerned about how I look to others, but it normally does not make me fell disappointed with myself C. I do get self-conscious about my appearance and wt. which makes me feel disappointed in myself. D. I feel very self-conscious about my wt. and frequently I feel intense shame and disgust for myself. I try to avoid social contacts because of my self-consciousness. Response Group 1: B Group 2 A. I don't have any difficulty eating slowly in the proper manner. B. Although I seem to gobble down foods, I don't end up feeling stuffed because of eating to much. C. At times, I tend to eat quickly and then, I feel uncomfortably full afterwards. D. I have the habit of bolting down my food, without really chewing it. When this happens I usually feel uncomfortably stuffed because I've eaten to much. Response Group 2: A Group 3 A. I feel capable to control my eating urges when I want to. B. I feel like I have failed to control my eating more than the average person. C. I feel utterly helpless when it comes to feeling in control of my eating urges. D. Because I feel so helpless about controlling my eating I have become very desperate about trying to get control. Response Group 3: A Group 4 A. I don't have the habit of eating when I'm bored. B. I sometimes eat when I'm bored, but often I'm able to get busy and get my mind off food. C. I have a regular habit of eating when I'm bored, but occasionally, I can use some other activity to get my mind off eating. D. I have a strong habit of eating when I'm bored. Nothing seems to help me breath the habit. Response Group 4: D Group 5 A. I'm usually physically hungry when I eat something. B. Occasionally, I eat something on impulse even though I really am not hungry. C. I have the regular habit of eating foods, that I might not really enjoy, to satisfy a hungry feeling even though physically, I don't need the food. D. Although I'm not physically hungry, I get a hungry feeling in my mouth that only seems to be satisfied when I eat a food, like sandwich, that fills my mouth. Sometimes, when I eat the food to satisfy my mouth hunger, I then spit the food out so I won't gain weight. Response Group 5: D Group 6 A. I don't feel any guilt or self-hate after I overeat. B. After I overeat, occasionally I feel guilt or self-hate. C. Almost all the time I experience strong guilt or self-hate after I overeat. Response Group 6: A Group 7 A. I don't lose total control of my eating when dieting even after periods when I overeat. B. Sometimes when I eat a forbidden food on a diet, I feel like I blew it and eat even more. C. Frequently, I have the habit of saying to myself, I've blown it now, why not go all the way, when I overeat on a diet. When that happens I eat more. D. I have a regular habit of starting a strict diets for myself but I break the diets by going on an eating binge. My life seems to be either a feast or famine. Response Group 7: D Group 8 A. I rarely eat so much food that I feel uncomfortably stuffed afterwards. B. Usually about once a month, I each such a quantity of food, I end up feeling very stuffed. C. I have regular periods during the month when I eat large amounts of food, either at mealtime or at snacks. D. I eat so much food that I regularly feel quite uncomfortable after eating and sometimes a bit nauseous. Response Group 8: C Group 9 A. My level of calorie intake does not go up very high or go down very low on a regular basis. B. Sometimes after I overeat, I will try to reduce my caloric intake to almost nothing to compensate for the excess calories I've eaten. C. I have a regular habit of overeating during the night. It seems that my routine is not to be hungry in the morning but overeat in the evening. D. In my adult years, I have had week-long periods where I practically starve myself. This follows periods when I overeat. It seems I live a life of either feast or famine. Response Group 9: B Group 10 A. I usually am able to stop eating when I want to. I know when enough is enough. B. Every so often, I experience a compulsion to eat which I can't seem to control. C. Frequently, I experience strong urges to eat which I seem unable to control, but at other times I can control my eating urges. D. I feel incapable of controlling urges to eat. I have a fear of not being able to stop eating voluntarily. Response Group 10: A Group 11 A. I don't have any problem stopping eating when I feel full. B. I usually can stop eating when I feel full but occasionally overeat leaving me feeling uncomfortably stuffed. C. I have a problem stopping eating once I start and usually I feel uncomfortably stuffed after I eat a meal. D. Because I have a problem not being able to stop eating when I want, I sometimes have to induce vomiting to relieve my stuffed feeling. Response Group 11: A Group 12 A. I seem to eat just as much when I'm with others, Family social gatherings as when I'm by myself. B. Sometimes, when I'm with other persons, I don't eat as much as I want to eat because I'm self-conscious about my eating. C. Frequently, I eat only a small amount of food when others are present, because I'm very embarrassed about my eating. D. I feel so ashamed about overeating that I pick times to overeat when I know no one will see me. I feel like a closet eater. Response Group 12: A Group 13 A. I eat three meals a day with only an occasional between meal snack. B. I eat 3 meals a day, but I also normally snack between meals. C. When I am snacking heavily, I get in the habit of skipping regular meals. D. There are regular periods when I seem to be continually eating, with no planned meals. Response Group 13: A Group 14 A. I don't think much about trying to control unwanted eating urges. B. At least some of the time, I feel my thoughts are pre-occupied with trying to control my eating urges. C. I feel that frequently I spend much time thinking about how much I ate or about trying not to eat anymore. D. It seems to me that most of my waking hours are pre-occupied by thoughts about eating or not eating. I feel like I'm constantly struggling not to eat. Response Group 14: A Group 15 A. I don't think about food a great deal. B. I have strong craving for food but they last only for brief periods of time. C. I have days when I can't seem to think about anything else but food. D. Most of my days seem to be pre-occupied with thoughts about food. I feel like I live to eat. Response Group 15: C Group 16 A. I usually know whether or not I'm physically hungry. I take the right portion of food to satisfy me. B. Occasionally, I feel uncertain about knowing whether or not I'm physically hungry. A these times it's hard to know how much food I should take to satisfy me. C. Even though I might know how many calories I should eat, I don't have any idea what is a normal amount of food for me. Response Group 16: C Binge Eating Score: 17 Score less than 17 Minimal Risk Score between 18-26 Moderate Risk Score between 27-46 High Risk Assessment & Plan Assessment & Plan (1) Adjustment disorder: Code(s): F43.20 - Adjustment disorder, unspecified Qualifiers: Adjustment disorder type: unspecified type Qualified Code(s): F43.20 - Adjustment disorder, unspecified (2) Inappropriate diet or eating habits: Code(s): Z72.4 - Inappropriate diet and eating habits (3) Pre-bariatric surgery psychological evaluation: Code(s): Z71.89 - Other specified counseling Plan The patient has been cleared from a behavioral health standpoint and can be submitted for insurance approval when ready. A follow-up behavioral health visit will be scheduled 1?4 weeks postoperatively to assess psychological adjustment and screen for any concerns. Next appointment: 1-4 Weeks Post-op. Telehealth Telehealth Telehealth Platform: [employer]YMION Location of provider rendering services: other (Home office. [place], [place]) Location of patient: other (Work. [place], [place].) Patient Identification confirmed using: Name, : Yes Telehealth method: video Patient verbally consented to treatment: Yes Patient verbally consented to billing insurance company: Yes Patient informed of any privacy concerns related to visit: Yes Minutes spent on Phone/Video with Pt.: 45 Coding Level of Care Code Established Pt Tele Psytx 45 mins ([id number]) Patient Type Established Diagnoses Adjustment disorder, unspecified type F43.20 Adjustment disorder type: unspecified type Inappropriate diet or eating habits Z72.4 Pre-bariatric surgery psychological evaluation Z71.89 Time Spent (min) 45
--- OUTSIDE RECORDS SUMMARY | 2024-10-05 12:45 | XMS_ITS | Clinical Summary ---
Author Organization Formerly [facility] Address [address] [place] [address] Care Team Providers Care Attorney At Law Name Role Phone Alysha Arzate MD Primary Care Provider [phone] Allergies No known active allergies Medications oxyCODONE [...] 12/08/2024 2:00 PM EDT Office Visit [facility] Urologic Surgery [place] [phone] Pam Herrera PA-C [address] [place] [address] Health Maintenance Due Date Last Done Comments Hepatitis C Virus Screening 1969 HIV Screening 1982 DTaP/Tdap/Td Vaccines (1 - Tdap) 1988 Hepatitis B Vaccines (1 of 3 - 19+ 3-dose series) 1988 Colonoscopy 2014 Pneumococcal Vaccines 50+ (1 of 1 - PCV) 2019 Zoster (Shingles) Vaccine (1 of 2) 2019 COVID-19 Vaccine ( season) 2023 Influenza Vaccine 10/02/2024 2022, 02/08/2021 Insurance [facility] FEDERAL Advance Directives * Full Code (Latest Code Status on File) Date Activated Date Inactivated Comments 01/04/2023 9:37 AM Care Teams Attorney At Law Relationship Specialty Start Date End Date Alysha Arzate MD PCP - General 07/13/22
--- OUTSIDE RECORDS SUMMARY | 2024-10-05 12:45 | XMS_ITS | Clinical Summary ---
Author Organization [facility] Address [address] [place] [address] Care Team Providers Care Efficiency Expert Name Role Phone Alysha Arzate MD Primary Care Provider [phone] Allergies No known active allergies Medications blood pressure test kit (BLOOD PRESSURE MONITOR [facility]) 1 Active cholecalciferol (VITAMIN D-3) 125 mcg [...] Team Description 07/20/2024 1:30 PM EDT Telemedicine [facility] [address] [facility] [address] [place] [address] Alysha Arzate MD Elevated fasting [...] WITH BIOPSY; Surgeon: Jf Funes MD; Location: [facility]; Service: Bariatrics; Laterality: N/A; Family History [...] 1:00 PM EDT Office Visit [facility] [place] [address] [address] Alysha Azrate MD [address] [address] Health Maintenance Due Date Last [...] AM EDT) Cholesterol Total 172 <200 mg/dL [facility] HDL Cholesterol 44 > OR = 40 mg/dL [facility] Triglycerides 61 <150 mg/dL [facility] LDL Cholesterol 113(H) mg/dL (calc) [facility] Comment: Reference range: <100 Desirable range <100 mg/dL for primary prevention; <70 mg/dL for patients with CHD or diabetic patients with > or = 2 CHD risk factors. LDL-C is now calculated using the Saman calculation, which is a validated novel method providing better accuracy than the Friedewald equation in the estimation of LDL-C. Jose Alberto PALMER et al. ERASTO. 2013;310(19): 9698-3214 (http://education.OberScharrer/faq/CRP508) Chol/HDLC Ratio 3.9 <5.0 (calc) [facility] Non HDL Cholesterol 128 <130 mg/dL (calc) [facility] Comment: For patients with diabetes plus 1 major ASCVD risk factor, treating to a non-HDL-C goal of <100 mg/dL (LDL-C of <70 mg/dL) is considered a therapeutic option. Blood Venous blood specimen / Unknown 06/16/2024 10:26 AM EDT 06/16/2024 10:27 AM EDT Narrative [facility] ([place]) - 06/16/2024 10:54 PM EDT FASTING:YES FASTING: YES Alysha Arzate MD LAB BLOOD ORDERABLES Final R esult [facility] [address] [place] [phone] * Depression Screening (06/03/2023) [facility] Depression Screening abstracted Historical Provider HEALTH MAINTENANCE Final Result * HIV Screening (05/21/2022) [facility] HIV Screening abstracted Historical Provider HEALTH MAINTENANCE Final Result * Hepatitis C Screening (05/21/2022) [facility] Hepatitis C Screening abstracted Historical Provider HEALTH MAINTENANCE Final Result * Colonoscopy (05/27/2020) [facility] Colonoscopy abstracted,no interpretation Anatomical Region Laterality Modality Other us Historical Provider HEALTH MAINTENANCE Final Result from Last 3 Months or Most Recently Relevant to Health Maintenance Insurance [facility] Care Teams Efficiency Expert Relationship Specialty Start Date End Date Alysha Arzate MD [address] [address] PCP - General Internal Medicine 06/08/24
--- OUTSIDE RECORDS SUMMARY | 2024-10-05 12:45 | XMS_ITS | Clinical Summary ---
Author Organization [facility] Address [address] [place] [address] Care Team Providers Care Material Combiner Name Role Phone An Arzate APRN Primary [...] age to complete this topic Care Teams Material Combiner Relationship Specialty Start Date End Date An Arzate APRN PCP - General Primary Care 04/10/16
== END 2024-10-05 13:11 | disposition home or self-care (01) ==
LOC: HO.HBST 12:03
PROVIDERS: Visit Provider Counselor Mental Health
DX: F43.20 Adjustment disorder, unspecified (principal); Z72.4 Inappropriate diet and eating habits; Z71.89 Other specified counseling
CPT/HCPCS: 90834

== ENCOUNTER 2024-10-09 12:07 | Outpatient (REF) | payer BC, SELFPAY ==
--- OUTSIDE RECORDS SUMMARY | 2009-11-07 20:00 | XMS_ITS | Continuity of Care Document ---
Author Organization [facility] vices Address [address] [place] [address] Phone Care Team Providers Care Circular Knitter Name Role Phone Unavailable Unavailable Unavailable Medications [...] DNA CHLAMYDIA DNA RPR, REFLEX TO FTA URINALYSIS (IH) PREV VISIT, EST, AGE 40-64 HIV-1/HIV-2 AB, REFLEX WB VISION SCREENING ELECTROCARDIOGRAM, COMPL COMPREHEN METABOLIC PANEL LIPID PANEL HEPATIC FUNCTION PANEL CBC W/O DIFF TSH NEW Level 2 - Expanded PREV [facility] 18-39 Advance Directives Directive Yes / No Effective Date File Name No Information Encounters Encounter Description Practice Location Reason(s) For Visit Diagnoses Date Provider Providers Copied on Encounter [facility], [address] [place] [address], [address], [place] tel:[phone] Conversion ENCOUNTERS FOR OTHER SPECIFIED ADMINISTRATIV E PURPOSE 0 No Information [facility], [address] [place] [address], [address], [place] tel:[phone] Historic Immunization Location No Information 0 No Information EXPANDED OUT/PT [facility], [address] [place] [address], [address], [place] tel:[phone] [facility] Adult Medicine No Information 0 No Information EXPANDED OUT/PT [facility], [address] [place] [address], [address], [place] tel:[phone] [facility] Adult Medicine No Information 0 No Information [facility], [address] [place] [address], [address], [place] tel:[phone] Conversion Need For Vaccination MMR 0 No Information [facility], [address] [place] [address], [address], [place] tel:[phone] Conversion visit for: screening exam lipoid disordersSPEC IAL SCREENING EXAMINATION FOR RUBELLAvisit for: screening exam viral disease measles 0 No Information EXPANDED OUT/PT [facility], [address] [place] [address], [address], [place] tel:[phone] [facility] Adult Medicine No Information 0 No Information [facility], [address] [place] [address], [address], [place] tel:[phone] Conversion 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 0 No Information NEW Level 2 - Expanded [facility], [address] [place] [address], [address], [place] tel:[phone] [facility] Podiatry No Information 0 No Information [facility], [address] [place] [address], [address], [place] tel:[phone] [facility] Adult Medicine No Information 0 No Information [facility], [place], [facility], [place] tel:[phone] Conversion MORBID OBESITY 0 No Information [facility], [address] [place] [address], [address], [place] tel:[phone] Conversion NORMAL ROUTINE HISTORY AND PHYSICALvisit for: screening exam venereal diseaseOTHER AND UNSPECIFIED HYPERLIPIDEMI A 0 No Information PREV VISIT, EST, AGE 40-64 [facility], [address] [place] [address], [facility], [place] tel:[phone] [facility] Adult Medicine No Information 0 No Information [facility], [address] [place] [address], [facility], tel:[phone] Conversion No Information 0 No Information [facility], [address] [place] [address], [facility], [place] tel:[phone] Conversion CONJUNCTIVITI S - RIGHT EYE 0 No Information [facility] Level 2 - [facility], [address] [place] [address], [facility], [place] tel:[phone] [facility] Adult Medicine No Information 0 No Information Family History Family Member Type Diagnosis Age At Onset No Information Immunizations Vaccine Date Status Comments IMMUNIZATION ADMINISTRAT administered Charis rce: New Immunization Record MMR VACCINE, [place] administered Source: New Immunization Record MMR VACCINE, [place] administered Source: New Immunization Record Payers Payer [...]
--- OUTSIDE RECORDS SUMMARY | 2024-10-09 12:11 | XMS_ITS | Clinical Summary ---
Author Organization [facility] Address [address] [place] [address] Care Team Providers Care Process Laboratory Specialist Name Role Phone Alysha Arzate MD Primary Care Provider [phone] Allergies No known active allergies Medications blood pressure test kit (BLOOD PRESSURE MONITOR [facility]) 1 Active cholecalciferol (VITAMIN D-3) 125 mcg [...] Team Description 07/20/2024 1:30 PM EDT Telemedicine [facility] [address] [facility] [address] [place] [address] Alysha Arzate MD Elevated fasting [...] WITH BIOPSY; Surgeon: Jf Funes MD; Location: [facility]; Service: Bariatrics; Laterality: N/A; Family [...] 1:00 PM EDT Office Visit [facility] [place] [address] [address] Alysha Arzate MD [address] [address] Health Maintenance Due Date Last [...] AM EDT) Cholesterol Total 172 <200 mg/dL [facility] HDL Cholesterol 44 > OR = 40 mg/dL [facility] Triglycerides 61 <150 mg/dL [facility] LDL Cholesterol 113(H) mg/dL (calc) [facility] Comment: Reference range: <100 Desirable range <100 mg/dL for primary prevention; <70 mg/dL for patients with CHD or diabetic patients with > or = 2 CHD risk factors. LDL-C is now calculated using the Saman calculation, which is a validated novel method providing better accuracy than the Friedewald equation in the estimation of LDL-C. Jose Alberto PALMER et al. ERASTO. 2013;310(19): 8780-9295 (http://education.[employer]inT[employer] International/faq/OVE619) Chol/HDLC Ratio 3.9 <5.0 (calc) [facility] Non HDL Cholesterol 128 <130 mg/dL (calc) [facility] Comment: For patients with diabetes plus 1 major ASCVD risk factor, treating to a non-HDL-C goal of <100 mg/dL (LDL-C of <70 mg/dL) is considered a therapeutic option. Blood Venous blood specimen / Unknown 06/16/2024 10:26 AM EDT 06/16/2024 10:27 AM EDT Narrative [facility] ([place] - 06/16/2024 10:54 PM EDT FASTING:YES FASTING: YES Alysha Arzate MD LAB BLOOD ORDERABLES Final R esult [facility]) [employer] [address] [place] [phone] * Depression Screening (06/03/2023) [facility] Depression Screening abstracted Historical Provider HEALTH MAINTENANCE Final Result * HIV Screening (05/21/2022) [facility] HIV Screening abstracted Historical Provider HEALTH MAINTENANCE Final Result * Hepatitis C Screening (05/21/2022) [facility] Hepatitis C Screening abstracted Historical Provider HEALTH MAINTENANCE Final Result * Colonoscopy (05/27/2020) [facility] Colonoscopy abstracted,no interpretation Anatomical Region Laterality Modality Other us Historical Provider HEALTH MAINTENANCE Final Result from Last 3 Months or Most Recently Relevant to Health Maintenance Insurance [facility] Care Teams Process Laboratory Specialist Relationship Specialty Start Date End Date Alysha Arzate MD [address] [address] PCP - General Internal Medicine 06/08/24
--- OUTSIDE RECORDS SUMMARY | 2024-10-09 12:11 | XMS_ITS | Clinical Summary ---
Author Organization [facility] Address [address] [place] [address] Care Team Providers Care Director Of Neurology Name Role Phone An Arzate APRN Primary [...] age to complete this topic Care Teams Director Of Neurology Relationship Specialty Start Date End Date An Arzate APRN PCP - General Primary Care 04/10/16
--- OUTSIDE RECORDS SUMMARY | 2024-10-09 12:11 | XMS_ITS | Clinical Summary ---
Author Organization [facility] Address [address] [place] [address] Care Team Providers Care Channel Business Manager Name Role Phone Alysha Arzate MD Primary Care Provider Allergies No known active allergies Medications oxyCODONE [...] Description 12/08/2024 2:00 PM EDT Office Visit [facility] Urologic Surgery [place] [phone] Pam Herrera PA-C [address] [place] [address] Health Maintenance Due Date Last Done Comments Hepatitis C Virus Screening 1969 HIV Screening 1982 DTaP/Tdap/Td Vaccines (1 - Tdap) 1988 Hepatitis B Vaccines (1 of 3 - 19+ 3-dose series) 1988 Colonoscopy 2014 Pneumococcal Vaccines 50+ (1 of 1 - PCV) 2019 Zoster (Shingles) Vaccine (1 of 2) 2019 COVID-19 Vaccine ( season) 2023 Influenza Vaccine 10/02/2024 2022, 02/08/[address] [facility] FEDERAL Advance Directives * Full Code (Latest Code Status on File) Date Activated Date Inactivated Comments 01/04/2023 9:37 AM Care Teams Channel Business Manager Relationship Specialty Start Date End Date Alysha Arzate MD PCP - General 07/13/22
[2024-10-09 12:25] LABS: MANUAL DIFF FLAG NO
[2024-10-09 13:27] LABS: Hematocrit 46.4 % (42.0-52.0); Hemoglobin 14.8 g/dl (14.0-18.0); Imm Gran Abs Auto 0.02 X10*3/uL (0.00-0.03); Imm Gran Pct Auto 0.3 % (0.0-0.4); Lymphocytes Absolute Auto 2.1 X10*3/uL (1.2-4.9); Mean Corpuscular HGB Conc 31.9 g/dl (31.0-36.0); Mean Corpuscular Hemoglobin 29.6 pg (27.0-33.0); Mean Corpuscular Volume 92.8 fL (80.0-98.0); NRBC Abs Auto 0.000 X10*3/uL (0.0-0.012); NRBC Pct Auto 0.0 /100WBC (0.0-0.2); Platelet Count 258 X10*3/uL (160-400); Red Blood Count 5.00 X10*6/uL (4.60-5.80); White Blood Count 7.5 X10*3/uL (4.8-10.8)
[2024-10-09 13:37] LABS: Hemoglobin A1C 133.0815 umol/L; Total Hemoglobin (HGBA1C) 3939.5867 umol/L
[2024-10-09 14:01] LABS: Alanine Aminotransferase 21 U/L (0-40); Albumin Level 4.4 g/dL (3.5-5.0); Alkaline Phosphatase 88 U/L (39-117); Anion Gap 11 (12-20); Aspartate Amino Transferase 28 U/L (5-37); Blood Urea Nitrogen 15 mg/dL (9-16); Calcium 9.5 mg/dL (8.4-10.2); Carbon Dioxide 29 mmol/L (22-29); Chloride 104 mmol/L (96-108); Cholesterol 169 mg/dL (<200); Estimated Glomerular Filt Rate > 60; HDL Cholesterol 35 mg/dL (>40); Iron 46 mcg/dL (45-160); Percent Iron Saturation 18 % (15-50); Potassium 4.4 mmol/L (3.3-5.1); Sodium 140 mmol/L (135-145); Total Iron Binding Capacity 262 mcg/dL (228-428); Total Protein 7.7 g/dL (6.5-8.0); Triglycerides 73 mg/dL (<150); Unsaturated Iron Binding 216 ug/dL
[2024-10-09 14:10] LABS: Ferritin 177 ng/mL (20-250)
[2024-10-09 14:27] LABS: Folate 8.5 ng/mL (> or = 4.0); Vitamin B12 490 pg/mL (200-900)
== END 2024-10-09 12:08 | disposition home or self-care (01) ==
LOC: HO.LAB 12:07
PROVIDERS: PCP Internal Medicine; Visit Provider Surgery
DX: K21.9 Gastro-esophageal reflux disease without esophagitis (principal); E66.812 Obesity, class 2; G47.33 Obstructive sleep apnea (adult) (pediatric); Z68.38 Body mass index [BMI] 38.0-38.9, adult
CPT/HCPCS: 36415; 80053; 80061; 82306; 82607; 82728; 82746; 83036; 83525; 83540; 84425; 84443; 84590; 84630; 85025; 86140

== ENCOUNTER 2024-10-09 12:28 | Day surgery (SDC) | payer BC, SELFPAY ==
--- OUTSIDE RECORDS SUMMARY | 2009-11-07 20:00 | XMS_ITS | Continuity of Care Document ---
Author Organization [facility] vices Address [address] [place] [address] Phone Care Team Providers Care Automatic Tire Tester Name Role Phone Unavailable Unavailable Unavailable Medications [...] Diagnoses Date Provider Providers Copied on Encounter [facility], [address] [place] [address], [address], [place] tel:[phone] Conversion ENCOUNTERS FOR OTHER SPECIFIED ADMINISTRATIV E PURPOSE 0 No Information [facility], [address] [place] [address], [address], [place] tel:[phone] Historic Immunization Location No Information 0 No Information EXPANDED OUT/PT [facility], [address] [place] [address], [address], [place] tel:[phone] [facility] Adult Medicine No Information 0 No Information EXPANDED OUT/PT [facility], [address] [place] [address], [address], [place] tel:[phone] [facility] Adult Medicine No Information 0 No Information [facility], [address] [place] [address], [address], [place] tel:[phone] Conversion Need For Vaccination MMR 0 No Information [facility], [address] [place] [address], [address], [place] tel:[phone] Conversion visit for: screening exam lipoid disordersSPEC IAL SCREENING EXAMINATION FOR RUBELLAvisit for: screening exam viral disease measles 0 No Information EXPANDED OUT/PT [facility], [address] [place] [address], [address], [place] tel:[phone] [facility] Adult Medicine No Information 0 No Information [facility], [address] [place] [address], [address], [place] tel:[phone] Conversion 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 0 No Information [facility] Level 2 - Expanded [facility], [address] [place] [address], [address], [place] tel:[phone] [facility] Podiatry No Information 0 No Information [facility], [address] [place] [address], [address], [place] tel:[phone] [facility] Adult Medicine No Information 0 No Information [facility], [address] [place] [address], [facility], [place] tel:[phone] Conversion MORBID OBESITY 0 No Information [facility], [address] [place] [address], [address], [place] tel:[phone] Conversion NORMAL ROUTINE HISTORY AND PHYSICALvisit for: screening exam venereal diseaseOTHER AND UNSPECIFIED HYPERLIPIDEMI A 0 No Information PREV VISIT, EST, AGE 40-64 [facility], [address] [place] [address], [facility], [place] tel:[phone] [facility] Adult Medicine No Information 0 No Information [facility], [address] [place] [address], [facility], tel:[phone] Conversion No Information 0 No Information [facility], [address] [place] [address], [facility], [place] tel:[phone] Conversion CONJUNCTIVITI S - RIGHT EYE 0 No Information PREV NEW 18-39 [facility], [address] [place] [address], [facility], [place] tel:[phone] [facility] Adult Medicine No Information 0 No Information Family History Family Member Type Diagnosis Age At Onset No Information Immunizations Vaccine Date Status Comments IMMUNIZATION ADMINISTRAT administered Charis rce: New Immunization Record MMR VACCINE, [place] administered Source: New Immunization Record MMR VACCINE, [place] administered Source: New Immunization Record Payers Payer name Insurance type Covered alliance party ID Authoriza tion(s) No Information Social [...]
--- OUTSIDE RECORDS SUMMARY | 2024-09-22 12:55 | XMS_ITS | Clinical Summary ---
Author Organization [facility], Located Within [facility] Address [address] [place] [id number] Care Team Providers Care Installation Superintendent Name Role Phone Alysha Arzate MD Primary Care Provider [phone] Allergies No known active allergies Medications oxyCODONE [...] Description 12/08/2024 2:00 PM EDT Office Visit [facility] Urologic Surgery [place] [phone] Pam Herrera PA-C [address] [place] [address] Health Maintenance Due Date Last Done Comments Hepatitis C Virus Screening 1969 HIV Screening 1982 DTaP/Tdap/Td Vaccines (1 - Tdap) 1988 Hepatitis B Vaccines (1 of 3 - 19+ 3-dose series) 1988 Colonoscopy 2014 Pneumococcal Vaccines 50+ (1 of 1 - PCV) 2019 Zoster (Shingles) Vaccine (1 of 2) 2019 COVID-19 Vaccine ( season) 2023 Influenza Vaccine 10/02/2024 2022, 02/08/2021 Insurance [facility] Advance Directives * Full Code (Latest Code Status on File) Date Activated Date Inactivated Comments 01/04/2023 9:37 AM Care Teams Installation Superintendent Relationship Specialty Start Date End Date Alysha Arzate MD PCP - General 07/13/22
--- OUTSIDE RECORDS SUMMARY | 2024-09-22 12:55 | XMS_ITS | Clinical Summary ---
Author Organization [facility] Address [address] [place] [address] Care Team Providers Care Lease Attendant Name Role Phone Alysha Arzate MD Primary Care Provider [phone] Allergies No known active allergies Medications blood pressure test kit (BLOOD PRESSURE MONITOR [facility]) 1 Active cholecalciferol (VITAMIN D-3) 125 mcg [...] hours. 90 each 5 09/21/19 25 Active Problems Problem Noted Date Diagnosed Date [...] Team Description 07/20/2024 1:30 PM EDT Telemedicine [facility] [address] [facility] [address] [place] [address] Alysha Arzate MD Elevated fasting blood sugar (Primary Dx); Hypercholesterolemia; Hypertriglyceridemia; Vitamin D deficiency from Last 3 Months Immunizations Name Administration [...] WITH BIOPSY; Surgeon: Jf Funes MD; Location: [facility]; Service: Bariatrics; Laterality: N/A; Family History [...] Care Team (Late st Contact Info) Description 06/14/2025 1:00 PM EDT Office Visit [facility] [place] [address] [address] Alysha Arzate MD [address] [address] Health Maintenance Due Date Last Done Comments DTaP,Tdap,and Td Vaccines (1 - Tdap) 1988 Hepatitis B Vaccines (2 of 3 - Hep B Twinrix 3-dose series) 05/24/2016 04/26/2016 Pneumococcal Vaccine: 50+ Years (1 of 1 - PCV) 2019 Zoster Vaccines (1 of 2) 2019 COVID-19 Vaccine (1 - 2023-2 5 season) 2023 Depression Screening 03/04/2024 06/03/2023 Influenza Vaccine (#1) 2024 3, 02/08/2021 Social Influencers of Health Screening 06/08/2025 06/08/2024 [...] Procedure Name Priority Date/Time Associated Diagnosis Comments LIPID PANEL Routine 06/16/2024 10:26 AM EDT Annual physical exam Vitamin D deficiency DEPRESSION SCREENING Routine 06/03/2023 HEPATITIS C SCREENING Routine 05/21/2022 HIV SCREENING Routine 05/21/2022 COLONOSCOPY Routine 05/27/2020 from Last 3 Months or Most Recently Relevant to Health Maintenance Results * (ABNORMAL) Lipid panel (06/16/2024 10:26 AM EDT) Cholesterol Total 172 <200 mg/dL [facility] HDL Cholesterol 44 > OR = 40 mg/dL [facility] Triglycerides 61 <150 mg/dL [facility] LDL Cholesterol 113(H) mg/dL (calc) [facility] Comment: Reference range: <100 Desirable range <100 mg/dL for primary prevention; <70 mg/dL for patients with CHD or diabetic patients with > or = 2 CHD risk factors. LDL-C is now calculated using the Saman calculation, which is a validated novel method providing better accuracy than the Friedewald equation in the estimation of LDL-C. Jose Alberto PALMER et al. ERASTO. 2013;310(19): 5607-8668 (http://education.On The Bill/faq/KRS297) Chol/HDLC Ratio 3.9 <5.0 (calc) [facility] Non HDL Cholesterol 128 <130 mg/dL (calc) [facility] Comment: For patients with diabetes plus 1 major ASCVD risk factor, treating to a non-HDL-C goal of <100 mg/dL (LDL-C of <70 mg/dL) is considered a therapeutic option. Blood Venous blood specimen / Unknown 06/16/2024 10:26 AM EDT 06/16/2024 10:27 AM EDT Narrative [facility] ([facility]) - 06/16/2024 10:54 PM EDT FASTING:YES FASTING: YES Alysha Arzate MD LAB BLOOD ORDERABLES Final R esult [facility] [address] [place] [id number] * Depression Screening (06/03/2023) [facility] Depression Screening abstracted Historical Provider HEALTH MAINTENANCE Final Result * HIV Screening (05/21/2022) [facility] HIV Screening abstracted Historical Provider HEALTH MAINTENANCE Final Result * Hepatitis C Screening (05/21/2022) [facility] Hepatitis C Screening abstracted Historical Provider HEALTH MAINTENANCE Final Result * Colonoscopy (05/27/2020) [facility] Colonoscopy abstracted,no interpretation Anatomical Region Laterality Modality Other us Historical Provider HEALTH MAINTENANCE Final Result from Last 3 Months or Most Recently Relevant to Health Maintenance Insurance [facility] Care Teams Lease Attendant Relationship Specialty Start Date End Date Alysha Arzate MD [address] [address] PCP - General Internal Medicine 06/08/24
--- OUTSIDE RECORDS SUMMARY | 2024-09-22 12:55 | XMS_ITS | Clinical Summary ---
Author Organization [facility] Address [address] [place] [address] Care Team Providers Care Certified Coatings Inspector Name Role Phone An Arzate APRN Primary [...] age to complete this topic Care Teams Certified Coatings Inspector Relationship Specialty Start Date End Date An Arzate APRN PCP - General Primary Care 04/10/16
[2024-10-06 14:55] VITALS: BMI 38.6
--- NOTE | 2024-10-07 14:39 | HO.ANESPROP2 ---
Documented by User: Rowan Prather NP 10/07/24 14:40 HPI - Anesthesia Eval Consult details Narrative: 54yo M for Upper Endoscopy [facility] Active Problems Active Problems: All Active Problems GERD (gastroesophageal reflux disease) (Acute) Obstructive sleep apnea on CPAP (Acute) BMI 38.0-38.9,adult (Acute) Obesity (Acute) Past Medical History Medical History GERD (gastroesophageal reflux disease) Obstructive sleep apnea on CPAP Obesity Family History Family History Mother No problems noted. Father No problems noted. Daughter Mandel Syndrome Thyroid condition Daughter Thyroid condition Son No problems noted. Surgical History Surgical History Hx of colonoscopy Hx of hernia repair Social History Social History Alcohol intake: current Alcohol intake frequency: a few times a month Patient Tobacco Use Status: Never used Tobacco Use of substances other than those prescribed or required for medical reasons: No Advance Directives: No Advance Directives Information Provided: Yes Meds Allergies Allergy/AdvReac Type Severity Reaction Status Date / Time No Known Allergies Allergy Verified 08/19/24 12:58 Home Medications ?Medication ?Instructions ?Recorded ?Confirmed ?Last Taken ?Type No Known Home Meds 07/20/24 10/06/24 Unknown History Exam Height,Weight and Vital Signs: Height 5 ft 7 in Weight 111.754 kg Assessment and Plan Assessment Anesthesia Assessment: Chart Reviewed Documented by User: Jessie Guthrie MD 10/09/24 14:51 [facility] Past Medical History Medical History GERD (gastroesophageal reflux disease) Obstructive sleep apnea on CPAP Obesity Family History Family History Mother No problems noted. Father No problems noted. Daughter Mandel Syndrome Thyroid condition Daughter Thyroid condition Son No problems noted. Surgical History Surgical History Hx of colonoscopy Hx of hernia repair History of Problems with Anesthesia: No Social History Social History Alcohol intake: current Alcohol intake frequency: a few times a month Patient Tobacco Use Status: Never used Tobacco Use of substances other than those prescribed or required for medical reasons: No Advance Directives: No Advance Directives Information Provided: Yes Meds Allergies Allergy/AdvReac Type Severity Reaction Status Date / Time No Known Allergies Allergy Verified 08/19/24 12:58 Home Medications ?Medication ?Instructions ?Recorded ?Confirmed ?Last Taken ?Type No Known Home Meds 07/20/24 10/06/24 Unknown History Exam Airway Mallampati Class: II TM Dist: >3cm Neck ROM: Full Loose/Missing/Broken Teeth: No Heart: RRR Lungs: CTA Assessment and Plan Assessment Anesthesia Assessment: Anesthesia Plan Discussed Final Anesthetic Review History of Problems with Anesthesia: No NPO: Yes ASA Class: III Final Preanesthetic Review: Meds/Allgs Chart Reviewed, Consent Obtained/Reviewed and Anes Risks/Benef Reviewed Patient Risk: Intermediate Procedure Risk: Intermediate Anesthetic Plan Anesthetic Plan: MAC: Disposition: Standard PACU
[2024-10-09 13:46] VITALS: BMI 35.7
[2024-10-09 13:55] VITALS: BP 124/64; PULSE 49; RESP 16; TEMP 36.6; O2SAT 100
[2024-10-09] MEDS: Lactated Ringers 1,000 ML 80 ML IVCONT (13:57)
--- NOTE | 2024-10-09 14:35 | P.BOP_ITS ---
Brief Operative Note Date of Service: 10/09/24 Pre-op diagnosis: GERD Post-op diagnosis: same (1) Diaphragmatic hernia, 2) gastric polyps) Procedure: PROCEDURE DATE: 10/09/24 PREOPERATIVE DIAGNOSIS: GERD POSTOPERATIVE DIAGNOSIS: ?Same as above. 1) Diaphragmatic hernia, 2) gastric polyps PROCEDURE: Eepthutv-gvfftc-smbzrvbefdse with biopsies Surgeon: ?Jim Miranda M.D.. Ph.D. Upsetting Machine Operator: None ? Anesthesia: IV sedation Estimated blood loss: ?Minimal FINDINGS AND PROCEDURE: ? OPERATIVE INDICATIONS: ?The patient is a 54 year old male known to me who is interested in bariatric surgery. The patient has severe GERD. Based on this information I recommended an upper endoscopy to evaluate the patient's symptoms. Risks and complications of the surgery were discussed with the patient in advance particularly the possibility of perforation or bleeding that may require surgical intervention. The patient understood the risks and was in agreement with the plan. ? PROCEDURE: After informed consent was obtained by the patient, the patient was ?transferred to the Operating Room and was placed in the supine position.? After successful induction of IV sedation, a mouth block was inserted and the patient was placed in the left lateral decubitus position. An upper endoscopy was performed next, the oropharynx and esophagus appeared within the normal limits. There was a 3cm fixed hiatal hernia. The z-line was smooth. Two biopsies were obtained from the distal esophagus 2-3 cm proximal to the GE junction and two additional biopsies from the GE junction. The stomach was entered and it appeared to be of normal size. There was no gastritis. There were scattered benign-appearing polyps in the gastric body. One of them was biopsied. There was no stricture or ulcer. A biopsy was obtained from the gastric fundus and the antrum. No significant bleeding was noted from any of the biopsy sites. Retroflexion of the scope confirmed the presence of the diaphragmatic hernia. The scope was then advanced into the duodenum which appeared to be normal as well. At that point the duodenum ?and the stomach were decompressed and the scope was withdrawn from the patient's mouth. The patient extubated and was transferred in stable condition to the Recovery Room for further care. I was present and performed all steps of the procedure. There were no residents to assist with this case. Jim Miranda M.D., Ph.D. Surgeon: Rosas Miranda MD Anesthesia: MAC Was an Upsetting Machine Operator used for this Procedure?: No Estimated blood loss (mL): 0 IV fluids (mL): 400 Urine output (mL): 0 (No [place] to record output) Pathology: other (1) antrum x1, 2) fundus x1, 3) GE junction x2, 4) distal esophagus x2, 5) gastric polyp x1) Condition: stable Disposition: PACU
--- NOTE | 2024-10-09 14:35 | MHC.SHP ---
Pre-Procedural Eval Section A - 24 Hr Update-Section A only Date of Service: 10/09/24 The patient is an INPATIENT: No The patient has been examined within 24 hours of the surgical procedure. The History & Physical has been completed within 30 days and I have reviewed it.: Yes Section B - Complete if H&P > 30 days Chief Complaint: Morbid (severe) obesity due to excess calories Details of Present Illness: GERD Relevant Family History (Specify if Yes): No Relevant Social History: None Present Medications: None Medical History: No relevant PMH History of Previous Operations: No relevant previous surgery Allergies: Allergies Allergy/AdvReac Type Severity Reaction Status Date / Time No Known Allergies Allergy Verified 08/19/24 12:58 Review of Systems Sugical H&P ROS: Negative: Constitution, Cardiovascular, Respiratory, Neurological, Psychiatric, Hem-Onc, Allergic/Immunologic, Gastrointestinal, Genitourinary, Musculoskeletal, Integumentary, Endocrine and Eyes/Ears/Nose/Throat Exam Surgical H&P Exam: Normal: HEENT, Normal: Heart, Normal: Lungs, Normal: Extremities, Normal: Abdomen, Normal: Skin and Normal: Neurological Plan Diagnosis/Plan: Unchanged (EGD to assess etiology of GERD. Risks of bleeding and perforation were discussed with the patient and he is in agreement with the plan.) I have reviewed the history and physical and performed a pertinent physical examination on my patient. No changes have occurred unless specified. Time Spent With Patient Time: Total time managing care of this patient today ____ minutes.
[2024-10-09 15:15] VITALS: BP 115/64; PULSE 70; RESP 18; TEMP 36.6; O2SAT 97
[2024-10-09 15:26] VITALS: BP 103/55; PULSE 63; RESP 16; TEMP 36.1; O2SAT 99
== END 2024-10-09 15:39 | disposition home or self-care (01) ==
PROVIDERS: PCP Internal Medicine; Visit Provider Surgery
PROC: 0DJ08ZZ Inspection of Upper Intestinal Tract, Via Natural or Artificial Opening Endoscopic (ICD-10-PCS; CPT 43235; principal; 2024-10-09 15:20)
DX: K21.9 Gastro-esophageal reflux disease without esophagitis (principal); E66.01 Morbid (severe) obesity due to excess calories; Z68.38 Body mass index [BMI] 38.0-38.9, adult; K31.7 Polyp of stomach and duodenum; K44.9 Diaphragmatic hernia without obstruction or gangrene; G47.33 Obstructive sleep apnea (adult) (pediatric); Z99.89 Dependence on other enabling machines and devices; Z98.890 Other specified postprocedural states
CPT/HCPCS: 43239; 88305; 88313; 88342; J2003; J2704

== ENCOUNTER → 2024-10-09 12:28 | Outpatient (BNV) | payer BC, SELFPAY | PROVIDERS: PCP Internal Medicine; Visit Provider Surgery | DX: K44.0 Diaphragmatic hernia with obstruction, without gangrene (principal) | CPT/HCPCS: 43239 ==

== ENCOUNTER 2024-10-16 08:32 | Outpatient (REF) | payer BC, SELFPAY ==
--- OUTSIDE RECORDS SUMMARY | 2009-11-07 20:00 | XMS_ITS | Continuity of Care Document ---
Author Organization [facility] vices Address [address] [place] [address] Phone Care Team Providers Care Shaft Headman Name Role Phone Unavailable Unavailable Unavailable Medications [...] 7 day(s) - Active Procedures Procedure Date MMR VACCINE, SC IMMUNIZATION ADMINISTRAT EXPANDED OUT/PT MMR VACCINE, SC EXPANDED OUT/PT GLUCOSE, RANDOM (IH) EXPANDED OUT/PT NEW Level 2 - Expanded MEDICAL NUTRITION, INDIV, IN GONORRHEA, DNA CHLAMYDIA DNA RPR, REFLEX TO FTA HIV-1/HIV-2 AB, REFLEX WB VISION SCREENING ELECTROCARDIOGRAM, COMPL URINALYSIS (IH) PREV VISIT, EST, AGE 40-64 COMPREHEN METABOLIC PANEL LIPID PANEL HEPATIC FUNCTION PANEL CBC W/O DIFF TSH NEW Level 2 - Expanded PREV [facility] 18-39 Advance Directives Directive Yes / No Effective Date File Name No Information Encounters Encounter Description Practice Location Reason(s) For Visit Diagnoses Date Provider Providers Copied on Encounter [facility], [address] [place] [address], [address], [place] tel:[phone] Conversion ENCOUNTERS FOR OTHER SPECIFIED ADMINISTRATIV E PURPOSE 0 No Information [facility], [address] [place] [address], [address], [place] tel:[phone] Historic Immunization Location No Information 0 No Information EXPANDED OUT/PT [facility], [address] [place] [address], [address], [place] tel:[phone] [facility] Adult Medicine No Information 0 No Information EXPANDED OUT/PT [facility], [address] [place] [address], [address], [place] tel:[phone] [facility] Adult Medicine No Information 0 No Information [facility], [address] [place] [address], [address], [place] tel:[phone] Conversion Need For Vaccination MMR 0 No Information [facility], [address] [place] [address], [address], [place] tel:[phone] Conversion visit for: screening exam lipoid disordersSPEC IAL SCREENING EXAMINATION FOR RUBELLAvisit for: screening exam viral disease measles 0 No Information EXPANDED OUT/PT [facility], [address] [place] [address], [address], [place] tel:[phone] [facility] Adult Medicine No Information 0 No Information [facility], [address] [place] [address], [address], [place] tel:[phone] Conversion 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 0 No Information NEW Level 2 - Expanded [facility], [address] [place] [address], [address], [place] tel:[phone] [facility] Podiatry No Information 0 No Information [facility], [address] [place] [address], [address], [place] tel:[phone] [facility] Adult Medicine No Information 0 No Information [facility], [place], [facility], [place] tel:[phone] Conversion MORBID OBESITY 0 No Information [facility], [address] [place] [address], [address], [place] tel:[phone] Conversion NORMAL ROUTINE HISTORY AND PHYSICALvisit for: screening exam venereal diseaseOTHER AND UNSPECIFIED HYPERLIPIDEMI A 0 No Information PREV VISIT, EST, AGE 40-64 [facility], [address] [place] [address], [facility], [place] tel:[phone] [facility] Adult Medicine No Information 0 No Information [facility], [address] [place] [address], [facility], tel:[phone] Conversion No Information 0 No Information [facility], [address] [place] [address], [facility], [place] tel:[phone] Conversion CONJUNCTIVITI S - RIGHT EYE 0 No Information [facility] Level 2 - [facility], [address] [place] [address], [facility], [place] tel:[phone] [facility] Adult Medicine No Information 0 No Information Family History Family Member Type Diagnosis Age At Onset No Information Immunizations Vaccine Date Status Comments IMMUNIZATION ADMINISTRAT administered Charis rce: New Immunization Record MMR VACCINE, [place] administered Source: New Immunization Record MMR VACCINE, [place] administered Source: New Immunization Record Payers Payer name Insurance type Covered green party ID Authoriza tion(s) No Information Social History [...]
--- NOTE | ~2024-10-16 | US_ITS ---
EXAMINATION: US ABDOMEN COMPLETE WITH LIVER ELASTOGRAPHY HISTORY: E66.812 - Obesity, class 2 TECHNIQUE: Real-time grayscale ultrasound imaging of the abdomen was performed and images were reviewed. COMPARISON: There are no prior studies available for comparison. FINDINGS: Liver: The right lobe of the liver measures 14.2 cm in size. The left lobe of the liver measures 11.1 cm in size. The liver demonstrates normal homogeneous echotexture. There is a 9 x 8 x 7 mm echogenic focus in the right lobe which may represent a hemangioma. No intrahepatic biliary ductal dilatation is identified. There is normal hepatopedal flow in the portal vein. Ultrasound elastography of the liver was performed with 10 separate measurements of the liver parenchyma with the patient in the supine position. Measurements were obtained approximately 2 cm below Damir's capsule and perpendicular to the capsule. The median shear wave velocity is 1.49 m/s. The interquartile range/median (IQR/median) is 0.13. Gallbladder and biliary tree: The gallbladder is unremarkable, without evidence of calculi, wall thickening, or pericholecystic fluid. There is no sonographic Waters sign. The common bile duct is normal in caliber measuring 2 mm. Kidneys: The right kidney measures 10.7 cm in length. The left kidney measures 12.4 cm in length. The kidneys are unremarkable, without evidence of masses, hydronephrosis, or calculi. Pancreas: The pancreatic head, neck, and body are unremarkable. The pancreatic tail is obscured by bowel gas. Spleen: The spleen is normal in size and contour, measuring 9.0 cm in length. Abdominal aorta and inferior vena cava: The visualized portions of the abdominal aorta and inferior vena cava are normal in caliber. There is no free fluid in the abdomen. US/US abdomen comp w elastography IMPRESSION: 9 mm echogenic lesion in the right lobe of the liver which may represent a hemangioma. Follow-up is suggested. The median shear wave velocity in the liver is 1.49 m/s, corresponding to a median liver stiffness of 6.81 kPa. The IQR/median value is 0.13. This is indicative of a quality data set. Findings are indicative of a low elastography value which rules out advanced chronic liver disease in asymptomatic patients. REFERENCE: Society of Radiologists in Ultrasound Liver Stiffness Thresholds (2020): LIVER STIFFNESS THRESHOLDS: *Shear wave velocity less than 1.3 m/s (Liver Stiffness equal or less than 5 kPa): High probability of being normal. *Shear wave velocity less than 1.7 m/s (Liver Stiffness less than 9 kPa): In the absence of other known clinical signs, rules out compensated advanced chronic liver disease. *Shear wave velocity between 1.7-2.1 m/s (Liver Stiffness 9-13 kPa): Suggestive of compensated advanced chronic liver disease but need further test for confirmation. *Shear wave velocity between 2.1-2.4 m/s (Liver Stiffness 13-17 kPa): Rules in compensated advanced chronic liver disease. *Shear wave velocity greater than 2.4 m/s (Liver Stiffness over 17 kPa): Suggestive of clinically significant portal hypertension. QUALITY OF DATA SET: *IQR/Median value equal or less than 0.15 implies a quality data set. *IQR/Median value over 0.15 implies a poor quality data set. SIGNIFICANT CHANGE FROM PRIOR EXAM: Significant change if liver stiffness measurement is 10% or greater from prior exam. OTHER CONSIDERATIONS: The stage of liver fibrosis may be overestimated in the setting of acute hepatitis, liver inflammation, elevated liver function tests, hepatic vascular congestion, obstructive cholestasis, non-fasting state, and infiltrative diseases such as amyloidosis and lymphoma. In some patients with NAFLD, the liver stiffness thresholds for compensated advanced chronic liver disease may be lower. In causes other than viral hepatitis and NAFLD, liver stiffness thresholds are not well established. Electronically signed by: Pablo Gerard MD 10/16/2024 09:50 AM EDT
--- OUTSIDE RECORDS SUMMARY | 2024-10-16 08:44 | XMS_ITS | Clinical Summary ---
Author Organization [facility] Address [address] [place] [address] Care Team Providers Care Email Producer Name Role Phone Alysha Azrate MD Primary Care Provider [phone] Allergies No known active allergies Medications oxyCODONE [...] Description 12/08/2024 2:00 PM EDT Office Visit [facility] Urologic Surgery [place] [phone] Pam Herrera PA-C [address] [place] [address] Health Maintenance Due Date Last Done Comments Hepatitis C Virus Screening 1969 HIV Screening 1982 DTaP/Tdap/Td Vaccines (1 - Tdap) 1988 Hepatitis B Vaccines (1 of 3 - 19+ 3-dose series) 1988 Colonoscopy 2014 Pneumococcal Vaccines 50+ (1 of 1 - PCV) 2019 Zoster (Shingles) Vaccine (1 of 2) 2019 COVID-19 Vaccine ( season) 2023 Influenza Vaccine 10/02/2024 2022, 02/08/2021 Insurance [facility] FEDERAL Advance Directives * Full Code (Latest Code Status on File) Date Activated Date Inactivated Comments 01/04/2023 9:37 AM Care Teams Email Producer Relationship Specialty Start Date End Date Alysha Arzate MD PCP - General 07/13/22
--- OUTSIDE RECORDS SUMMARY | 2024-10-16 08:44 | XMS_ITS | Clinical Summary ---
[facility] Organization [facility] Address [address] [place] [address] Care Team Providers Care Repeat Photocomposing Machine Operator Name Role Phone An Arzate APRN Primary [...] age to complete this topic Care Teams Repeat Photocomposing Machine Operator Relationship Specialty Start Date End Date An Arzate APRN PCP - General Primary Care 04/10/16
--- OUTSIDE RECORDS SUMMARY | 2024-10-16 08:44 | XMS_ITS | Clinical Summary ---
Author Organization [facility] Address [address] [place] [address] Care Team Providers Care Adzing And Boring Machine Operator Name Role Phone Alysha Arzate MD Primary Care Provider [phone] Allergies No known active allergies Medications blood pressure test kit (BLOOD PRESSURE MONITOR [facility]) 1 Active cholecalciferol (VITAMIN D-3) 125 mcg [...] Team Description 07/20/2024 1:30 PM EDT Telemedicine [facility] [address] [facility] [address] [place] [address] Alysha Arzate MD Elevated fasting [...] WITH BIOPSY; Surgeon: Jf Funes MD; Location: [facility]; Service: Bariatrics; Laterality: N/A; Family History [...] Care Team (Late st Contact Info) Description 10/16/2024 4:45 PM EDT Telemedicine [address] [address] Alysha Arzate MD [address] [place] [address] 06/14/2025 1:00 PM EDT Office Visit [address] [address] Alysha Arzate MD [address] [place] [address] Health Maintenance Due Date Last Done [...] (ABNORMAL) Lipid panel (06/16/2024 10:26 AM EDT) [facility] Cholesterol Total 172 <200 mg/dL [facility] HDL Cholesterol 44 > OR = 40 mg/dL [facility] Triglycerides 61 <150 mg/dL [facility] LDL Cholesterol 113(H) mg/dL (calc) [facility] Comment: Reference range: <100 Desirable range <100 mg/dL for primary prevention; <70 mg/dL for patients with CHD or diabetic patients with > or = 2 CHD risk factors. LDL-C is now calculated using the Saman calculation, which is a validated novel method providing better accuracy than the Friedewald equation in the estimation of LDL-C. Jose Alberto SS et al. ERASTO. 2013;310(19): 8508-6062 (http://education.[employer]/faq/HSP198) Chol/HDLC Ratio 3.9 <5.0 (calc) [facility] Non HDL Cholesterol 128 <130 mg/dL (calc) [facility] Comment: For patients with diabetes plus 1 major ASCVD risk factor, treating to a non-HDL-C goal of <100 mg/dL (LDL-C of <70 mg/dL) is considered a therapeutic option. Blood Venous blood specimen / Unknown 06/16/2024 10:26 AM EDT 06/16/2024 10:27 AM EDT Narrative [facility] 06/16/2024 10:54 PM EDT FASTING:YES FASTING: YES Alysha Arzate MD LAB BLOOD ORDERABLES Final R esult [facility] [address] [place] [phone] * Depression Screening (06/03/2023) [facility] Depression Screening abstracted Cheryl Zavala MD HEALTH MAINTENANCE Final Result * HIV Screening (05/21/2022) HIV Screening abstracted Historical Provider HEALTH MAINTENANCE Final Result * Hepatitis C Screening (05/21/2022) Hepatitis C Screening abstracted Historical Provider HEALTH MAINTENANCE Final Result * Colonoscopy (05/27/2020) Colonoscopy abstracted,no interpretation Anatomical Region Laterality Modality Other Historical Provider HEALTH MAINTENANCE Final Result from Last 3 Months or Most Recently Relevant to Health Maintenance Insurance Care Teams Adzing And Boring Machine Operator Relationship Specialty Start Date End Date Alysha Arzate MD [address] [address] PCP - General Internal Medicine 06/08/24
== END 2024-10-16 08:33 | disposition home or self-care (01) ==
LOC: HO.US 08:32
PROVIDERS: Visit Provider Surgery
DX: E66.812 Obesity, class 2 (principal); E66.01 Morbid (severe) obesity due to excess calories; Z68.38 Body mass index [BMI] 38.0-38.9, adult; K21.9 Gastro-esophageal reflux disease without esophagitis; G47.33 Obstructive sleep apnea (adult) (pediatric)
CPT/HCPCS: 76700; 76981

== ENCOUNTER → 2024-10-16 08:34 | Outpatient (BNV) | payer BC, SELFPAY | PROVIDERS: Visit Provider Radiology Diagnostic Radiology | DX: R93.2 Abnormal findings on diagnostic imaging of liver and biliary tract (principal) | CPT/HCPCS: 76700 ==

== ENCOUNTER 2024-10-21 08:22 | Outpatient (AMB) | payer BC, SELFPAY ==
--- OUTSIDE RECORDS SUMMARY | 2009-11-07 20:00 | XMS_ITS | Continuity of Care Document ---
Author Organization [facility] vices Address [address] [place] [address] Phone Care Team Providers Care Etl Programmer Name Role Phone Unavailable Unavailable Unavailable Medications Medication Instructions Dosage Effective Dates (start - stop) Status Comments Lipitor 20 mg tablet SI tab(s) orall y once a day (at bedtime) for 30 day(s) - Active TobraDex 0.3 %-0.1 % Eye Drops SI gtt in each affected eye 4 times a day for 7 day(s) SI gtt in each affected eye 3 times a day for 7 day(s) SI gtt in each affected eye 2 times a day for 7 day(s) SI gtt in each affected eye once a day for 7 day(s) - Active Procedures Procedure Date EXPANDED OUT/PT MMR VACCINE, SC IMMUNIZATION ADMINISTRAT MMR VACCINE, SC EXPANDED OUT/PT GLUCOSE, RANDOM (IH) EXPANDED OUT/PT NEW Level 2 - Expanded MEDICAL NUTRITION, INDIV, IN ELECTROCARDIOGRAM, COMPL URINALYSIS (IH) PREV VISIT, EST, AGE 40-64 HIV-1/HIV-2 AB, REFLEX WB VISION SCREENING GONORRHEA, DNA CHLAMYDIA DNA RPR, REFLEX TO FTA PREV NEW 18-39 CBC W/O DIFF TSH NEW Level 2 - Expanded HEPATIC FUNCTION PANEL COMPREHEN METABOLIC PANEL LIPID PANEL Advance Directives Directive Yes / No Effective Date File Name No Information Encounters Encounter Description Practice Location Reason(s) For Visit Diagnoses Date Provider Providers Copied on Encounter [facility], [address] [place] [address], [address], [place] tel:[phone] Conversion ENCOUNTERS FOR OTHER SPECIFIED ADMINISTRATIV E PURPOSE 0 No Information [facility], [address] [place] [address], [address], [place] tel:[phone] Historic Immunization Location No Information 0 No Information EXPANDED OUT/PT [facility], [address] [place] [address], [address], [place] tel:[phone] [facility] Adult Medicine No Information 0 No Information EXPANDED OUT/PT [facility], [address] [place] [address], [address], [place] tel:[phone] [facility] Adult Medicine No Information 0 No Information [facility], [address] [place] [address], [address], [place] tel:[phone] Conversion Need For Vaccination MMR 0 No Information [facility], [address] [place] [address], [address], [place] tel:[phone] Conversion visit for: screening exam lipoid disordersSPEC IAL SCREENING EXAMINATION FOR RUBELLAvisit for: screening exam viral disease measles 0 No Information EXPANDED OUT/PT [facility], [address] [place] [address], [address], [place] tel:[phone] [facility] Adult Medicine No Information 0 No Information [facility], [address] [place] [address], [address], [place] tel:[phone] Conversion 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 0 No Information [facility] Level 2 - Expanded [facility], [address] [place] [address], [address], [place] tel:[phone] [facility] Podiatry No Information 0 No Information [facility], [address] [place] [address], [address], [place] tel:[phone] [facility] Adult Medicine No Information 0 No Information [facility], [address] [place] [address], [facility], [place] tel:[phone] Conversion MORBID OBESITY 0 No Information [facility], [address] [place] [address], [address], [place] tel:[phone] Conversion NORMAL ROUTINE HISTORY AND PHYSICALvisit for: screening exam venereal diseaseOTHER AND UNSPECIFIED HYPERLIPIDEMI A 0 No Information PREV VISIT, EST, AGE 40-64 [facility], [address] [place] [address], [facility], [place] tel:[phone] [facility] Adult Medicine No Information 0 No Information [facility], [address] [place] [address], [facility], tel:[phone] Conversion No Information 0 No Information [facility], [address] [place] [address], [facility], [place] tel:[phone] Conversion CONJUNCTIVITI S - RIGHT EYE 0 No Information PREV NEW 18-39 [facility], [address] [place] [address], [facility], [place] tel:[phone] [facility] Adult Medicine No Information 0 No Information Family History Family Member Type Diagnosis Age At Onset No Information Immunizations Vaccine Date Status Comments IMMUNIZATION ADMINISTRAT administered Charis rce: New Immunization Record MMR VACCINE, [place] administered Source: New Immunization Record MMR VACCINE, [place] administered Source: New Immunization Record Payers Payer name Insurance type Covered republican ID Authoriza tion(s) No Information Social History Type Description Quantity Date Captured Comments Sex Male Smoking Status No Information Chief Complaint And Reason For Visit No Information Reason For Referral Reason For Referral No Information History Of Present Illness Encounter Date Complaint History Of Prese nt Illness No Information Functional Status Date Functional Assessmen t No Information Instructions Date Instruction Additional Infor mation No Information Assessments Type Assessment Date No Information Patient Care Teams Name Effective Dates (start - stop) Status Members No Information
--- OUTSIDE RECORDS SUMMARY | 2024-10-16 16:45 | XMS_ITS | Encounter Summary ---
Author Organization [employer] [facility] Address [address] [place] [address] Care Team Providers Care Production Solderer Name Role Phone Alysha Arzate MD Primary Care Provider [phone] Encounter Details Date Type Department Care Team ([facility] Contact Info) Description 10/16/2024 4:45 PM EDT Telemedicine [facility] [address] [address] Alysha Arzate MD [facility] [address] [address] Elevated fasting blood sugar (Primary Dx); Hypercholesterolemia; Hypertriglyceridemia; Vitamin D deficiency; B12 deficiency Social History Tobacco Use Types Packs/Day Years Used Date Smoking Tobacco: Never Smokeless Tobacco: Never Alcohol Use Standard Drinks/Week Comments Yes 0 (1 standard drink = 0.6 oz pur e alcohol) Housing Instability Answer Date Recorde d Are you worried that in the next 2 months you may not have stable housing? Unable to respond 10/16/2024 Food Access & Nutrition Answer Date Rec orded Do you have access to a vari ety of food including fruits and vegetables? Unable to respond 10/16/2024 Health Literacy Answer Date Recorded How often do you need to hav e someone help you when you read instructions, pamphlets, or other written material from your doctor or pharmacy? Unable to respond 10/16/2024 Caregiver: How often do you need to have someone help you when you read instructions, pamphlets, or other written material from your doctor or pharmacy? Not on file 025 Financial Risk Answer Date Recorded How hard is it for you to pa y for the very basics like food, housing, medical care, and air conditioning / heating? Unable to respond 10/16/2024 Transportation Answer Date Recorded Has the lack of transportati on kept you from meetings, work, or from getting things needed for daily living? Unable to respond 10/16/2024 Has the lack of transportati on kept you from medical appointments or from getting medications? Unable to respond 10/16/2024 Social Isolation Answer Date Recorded How often do you feel lonely or isolated from those around you? Unable to respond 10/16/2024 Food Risk Answer Date Recorded Within the past 12 months we worried whether our food would run out before we got money to buy more. Unable to respond 025 Within the past 12 months th e food we bought just didn't last and we didn't have money to get more. Unable to respond 10/02 Education Answer Date Recorded Do you think completing more education or training, like finishing a GED, going to college, or learning a trade, would be helpful for you? Unable to respond 10/16/2024 Employment and Income Answer Date Recor ded During the last four weeks, have you been actively looking for work? Unable to respond 10/16/2024 Living Situation Answer Date Recorded What is your living situation? 0 10/16/2024 Sex and Gender Information Value Date Recorded Sex Assigned at Not on file Legal Sex Male 5:20 AM EST Gender Identity Not on file Sexual Orientation Not on file documented as of this encounter Last Filed Vital Signs Vital Sign Reading Time Taken Comments Blood Pressure - - Pulse - - Temperature - - Respiratory Rate - - Oxygen Saturation - - Inhaled Oxygen Concentration - - Weight 103 kg (228 lb) 10/16/2024 6:08 PM EDT Height - - Body Mass Index 36.25 06/22/2024 1:45 PM EDT documented in this encounter Progress Notes * Alysha Arzate MD - 10/16/2024 4:45 PM EDT CHIEF COMPLAINT: FOLLOW UP TELEHEALTH (Video and Audio) Due to the COVID-19 pandemic, a telehealth Video and Audio visit will be performed today. Video visits allow us to continue to provide medical care while adhering to social distancing as advised by the CDC during the COVID pandemic. I offered a face to face visit if the patient is willing to consent for a telehealth conference. I did explain that this platform could potentially introduce privacy risks. Patient understands that a claim will be submitted to their insurance. Risks reviewed of telemedicine platform including limited and potentially no physical exam. This may limit ability to makea definite and accurate diagnosis. Patient understands and has requested this service. A video telemedicine conference was performed via ??? [email or web address] Patient location: Home Provider location: Office ?? SUBJECTIVE: Jack Hyatt is a 54 y.o. male here today HISTORY OF PRESENT ILLNESS: Pt is seen for follow-up. Patient has hx of prediabetes, hyperlipidemia, B12 deficiency D deficiency/ Pt is taking all his medications daily as directed. Patient denies any headaches, dizziness, shortness of breath, chest pain or lower extremity edema. PAST MEDICAL HISTORY: History reviewed. No pertinent past medical history. ? SURGICAL HISTORY: Past Surgical History: Procedure Laterality Date HERNIA REPAIR PROCEDURE:HERNIA REPAIR;COMMENT:childhood UPPER GASTROINTESTINAL ENDOSCOPY N/A 09/30/2020 PROCEDURE:UPPER GASTROINTESTINAL ENDOSCOPY;COMMENT:Procedure: UPPER ENDOSCOPY- EGD WITH BIOPSY; Surgeon: Jf Funes MD; Location: [facility]; Service: Bariatrics; Laterality: N/A; ? SOCIAL HISTORY: Social History Tobacco Use Smoking status: Never Smokeless tobacco: Never Substance Use Topics Alcohol use: Yes Alcohol/week: 0.0 standard drinks of alcohol ? FAMILY HISTORY: Family History Problem Relation Name Age of Onset Colon cancer Father Colon polyps Neg Hx ? MEDICATIONS: Current Outpatient Medications Medication Sig Dispense Refill ascorbic acid (VITAMIN C) 250 mg tablet Take 500 mg by mouth daily. blood pressure test kit (BLOOD PRESSURE MONITOR [facility]) cholecalciferol (VITAMIN D-3) 125 mcg (5,000 unit) capsule Take 5,000 Units by mouth daily. clotrimazole-betamethasone (LOTRISONE) 1-0.05 % cream Apply topically 2 (two) times a day. diclofenac (VOLTAREN) 1 % topical gel Apply 1 g topically every 4 (four) hours. methocarbamoL (ROBAXIN) 750 mg tablet Take 1 tablet (750 mg total) by mouth 4 (four) times a day for 10 days. 40 each 0 pantoprazole (PROTONIX) 40 mg EC tablet Take 1 tablet (40 mg total) by mouth every morning on an empty stomach. predniSONE (DELTASONE) 10 mg tablet Take 3 tab at once for 3 days then 2 tab at once for 3 days then 1 tab daily for 3 days and finish 18 each 0 tamsulosin (FLOMAX) 0.4 mg 24 hr capsule TAKE 1 CAPSULE BY MOUTH EVERYDAY AT BEDTIME No current facility-administered medications for this visit. ? ALLERGIES: No Known Allergies TEST RESULTS: No visits with results within 1 Week(s) from this visit. Latest known visit with results is: Office Visit on 06/08/2024 Component Date Value Ref Range Status Glucose 06/16/2024 104 (H) 65 - 99 mg/dL Final Urea Nitrogen (BUN) 06/16/2024 12 7 - 25 mg/dL Final Creatinine 06/16/2024 1.05 0.70 - 1.30 mg/dL Final eGFR 06/16/2024 84 > OR = 60 mL/min/1.73m2 Final BUN/Creatinine Ratio 06/16/2024 SEE NOTE: 6 - 22 (calc) Final Sodium 06/16/2024 138 135 - 146 mmol/L Final Potassium 06/16/2024 4.3 3.5 - 5.3 mmol/L Final Chloride 06/16/2024 104 98 - 110 mmol/L Final Carbon Dioxide 06/16/2024 29 20 - 32 mmol/L Final Calcium 06/16/2024 9.0 8.6 - 10.3 mg/dL Final Total Protein 06/16/2024 6.9 6.1 - 8.1 g/dL Final Albumin 06/16/2024 3.9 3.6 - 5.1 g/dL Final Globulin 06/16/2024 3.0 1.9 - 3.7 g/dL (calc) Final Albumin/Globulin Ratio 06/16/2024 1.3 1.0 - 2.5 (calc) Final Bilirubin Total 06/16/2024 0.4 0.2 - 1.2 mg/dL Final Alkaline Phosphatase 06/16/2024 83 35 - 144 U/L Final Aspartate aminotransferase (AST) 06/16/2024 17 10 - 35 U/L Final Alanine Aminotransferase (ALT) 06/16/2024 14 9 - 46 U/L Final Cholesterol Total 06/16/2024 172 <200 mg/dL Final HDL Cholesterol 06/16/2024 44 > OR = 40 mg/dL Final Triglycerides 06/16/2024 61 <150 mg/dL Final LDL Cholesterol 06/16/2024 113 (H) mg/dL (calc) Final Chol/HDLC Ratio 06/16/2024 3.9 <5.0 (calc) Final Non HDL Cholesterol 06/16/2024 128 <130 mg/dL (calc) Final Hemoglobin A1C 06/16/2024 5.6 <5.7 % Final Vitamin D 25-Hydroxy Level 06/16/2024 61 30 - 100 ng/mL Final Prostatic Specific Antigen Total 06/16/2024 3.07 < OR = 4.00 ng/mL Final Thyroid Stimulating Hormone (TSH) 06/16/2024 2.70 0.40 - 4.50 mIU/L Final T4 (Thyroxine) Free 06/16/2024 1.3 0.8 - 1.8 ng/dL Final White Blood Cell Count 06/16/2024 5.9 3.8 - 10.8 Thousand/uL Final RBC Count 06/16/2024 5.04 4.20 - 5.80 Million/uL Final Hemoglobin 06/16/2024 14.9 13.2 - 17.1 g/dL Final Hematocrit 06/16/2024 44.6 38.5 - 50.0 % Final MCV 06/16/2024 88.5 80.0 - 100.0 fL Final MCH 06/16/2024 29.6 27.0 - 33.0 pg Final MCHC 06/16/2024 33.4 32.0 - 36.0 g/dL Final RDW 06/16/2024 12.6 11.0 - 15.0 % Final Platelet Count 06/16/2024 254 140 - 400 Thousand/uL Final MPV 06/16/2024 11.1 7.5 - 12.5 fL Final Absolute Neutrophil 06/16/2024 2,578 1,500 - 7,800 cells/uL Final Absolute Lymphocytes 06/16/2024 2,384 850 - 3,900 cells/uL Final Absolute Monocytes 06/16/2024 690 200 - 950 cells/uL Final Absolute Eosinophils 06/16/2024 218 15 - 500 cells/uL Final Absolute Basophils 06/16/2024 30 0 - 200 cells/uL Final Neutrophils 06/16/2024 43.7 % Final Lymphocytes 06/16/2024 40.4 % Final Monocytes 06/16/2024 11.7 % Final Eosinophils 06/16/2024 3.7 % Final Basophils 06/16/2024 0.5 % Final Ram1 06/16/2024 Final Awn Test Refused 06/16/2024 [id number] Final REVIEW OF SYMTOMS: Review of Systems Constitutional: Negative. HENT: Negative. Eyes: Negative. Respiratory: Negative. Cardiovascular: Negative. Gastrointestinal: Negative. Endocrine: Negative. Genitourinary: Negative. Musculoskeletal: Negative. Skin: Negative. Breast: negative. Allergic/Immunologic: Negative. Neurological: Negative. Hematological: Negative. Psychiatric/Behavioral: Negative. All other systems reviewed and are negative. VITALS SIGNS: Vitals: 10/16/24 1808 Weight: 103 kg (228 lb) Body mass index is 36.25 kg/m??. ? Physical Exam ? ? ASSESSMENT/PLAN: Encounter Diagnosis: 1. Elevated fasting blood sugar 2. Hypercholesterolemia 3. Hypertriglyceridemia 4. Vitamin D deficiency 5. B12 deficiency [id number] A1C=5.2 Jack Mooreiz will continue current regiment. Dietary restrictions reviewed. Encouraged regular exercise and weight loss. Patient was educated about importance of attaining to ADA diet and exercise routine at least 150 minutes/week. Patient was instructed about high risk of developing type 2 diabetes if all the above recommendations are not followed. HYPERLIPIDEMIA LDL =120 Jack Hyatt will continue with current treatment/medication. Dietary restrictions reviewed. Encouraged regular exercise and weight loss. Patient was given a long talk and education about importance of controlling lipids due to high riskfor developing cardiovascular diseases such as CVA, CAD and CKD if all the recommendations are not followed. Patient was instructed about importance of following a low-fat diet and exercise routine strictly Check Labs. Hypertriglyceridemia TG level =70 Patient was recommended to lower carbohydrates and sweet intake as directed. Patient was educated about high risk of developing type 2 diabetes and pancreatitis if the above recommendations are not followed. Patient was instructed to increase physical activity at least 150 minutes/week. Vitamin D deficiency Level =70 Patient was recommended to vitamin D 50,000 international units weekly or vitamin D 5000 international units daily. Vitamin B12 deficiency Level =490 Patient was recommended to B12 1000 mcg daily. I personally spent a total of 28 minutes caring for the patient today. This includes the time I spent reviewing the medical record in preparation for the visit, performing a medically appropriate history and exam,and/ or counseling and educating the patient/ family/ caregiver, ordering services or referrals, and updating the record and documenting all services. Patient was told if the communication gets lost this appointment will continue via audio only (phone). Prescriptions Ordered This Encounter: No orders of the defined types were placed in this encounter. ?? documented in this encounter Plan of Treatment Upcoming Encounters Date Type Department Care Team (Late st Contact Info) Description 02/04/2025 4:30 PM EST Telemedicine [facility] [address] [address] Alysha Arzate MD [address] [place] [phone] 06/14/2025 1:00 PM EDT Office Visit [facility] [address] [place] [address] Alysha Arzate MD [facility] [address] [place] [address] documented as of this encounter Visit Diagnoses Diagnosis Elevated fasting blood sugar- Primary Impaired fasting glucose Hypercholesterolemia Pure hypercholesterolemia Hypertriglyceridemia Pure hyperglyceridemia Vitamin D deficiency B12 deficiency documented in this encounter Additional Health Concerns Assessment Noted Time PHQ-9 Depression Total Score: 0 10/17/19 25 5:45 PM EDT documented as of this encounter Care Teams Production Solderer Relationship Specialty Start Date End Date Alysha Arzate MD [address] [place] [id number] PCP - General Internal Medicine 06/08/24 documented as of this encounter
[2024-10-20 22:42] VITALS: BMI 35.6
--- NOTE | 2024-10-20 22:42 | MHC.OFFVISWM ---
VS Expanded 10/20/24 22:42 Height 5 ft 7 in Weight 227 lb 9 oz BMI 35.6 Body Fat % 34.7 Body Fat Mass 79.1 Fat Free Mass 148.8 Visceral Fat Rating 18 Body Water % 47.1 Body Water Mass 107.4 Basal Metabolic Rate/Score 1,828 Intake Visit Reasons: TV Pre Op LSG 10/29/24 *ECONOMIC RESEARCH ANALYST* Referral And Information Aide Required: Yes Referral And Information Aide Services: Referral And Information Aide Present Information Interpreted: clinical only Allergies No Known Allergies Allergy (Verified 10/20/24 22:43) Medication List - Last Reconciled 10/20/24 by Rosas Miranda MD ondansetron 4 mg PO Q12H pantoprazole 40 mg PO DAILY polyethylene glycol 3350 17 grams PO DAILY sucralfate 10 mL PO BID thiamine HCl (vitamin B1) 100 mg PO DAILY HPI HPI TV Pre Op LSG 10/29/24 *ECONOMIC RESEARCH ANALYST*: Details: Start time: 2.30pm, End time: 3pm I spent 25 minutes speaking with the patient on the phone plus an additional 5 minutes reviewing and updating records for a total of 30 minutes HPI Comments Details: Overall weight loss: 18.7lbs or 7.6% TBWL Is doing 2 Premier premade shakes, 2 Fit Crunch bas and one meal PFSH Medical History GERD (gastroesophageal reflux disease) Obstructive sleep apnea on CPAP Obesity Surgical History Hx of colonoscopy Hx of hernia repair Family History Mother No problems noted. Father No problems noted. Daughter Mandel Syndrome Thyroid condition Daughter Thyroid condition Son No problems noted. Social History Alcohol intake: current Alcohol intake frequency: a few times a month Patient Tobacco Use Status: Never used Tobacco Physical Exam Vital Signs: BMI result Body Mass Index 35.6 Telehealth Telehealth Telehealth Platform: Telephone Location of provider rendering services: practice address Location of patient: address on file Patient Identification confirmed using: Name, : Yes Telehealth method: voice only Patient verbally consented to treatment: Yes Patient verbally consented to billing insurance company: Yes Patient informed of any privacy concerns related to visit: Yes Minutes spent on Phone/Video with Pt.: 30 Assessment & Plan Assessment & Plan (1) Obesity: Code(s): E66.9 - Obesity, unspecified Category: Medical Qualifiers: Body mass index: BMI 38.0-38.9 Obesity classification: adult class 2 (BMI 35 - 39.9) Obesity type: due to excess calories Serious obesity comorbidity presence: with serious comorbidity Qualified Code(s): E66.812 - Obesity, class 2; E66.01 - Morbid (severe) obesity due to excess calories; Z68.38 - Body mass index [BMI] 38.0-38.9, adult Plan: 1. Plan for lap sleeve gastrectomy including upper GI endoscopy. All tests has been completed and reviewed and the patient is cleared for the surgery. If diaphragmatic or ventral hernias are present at time of surgery, these will be repaired laparoscopically as well. The surgery does not replace the need to change your lifestlyle which is the cause of the obesity problem. The surgery provides the motivation to try again to change your lifestyle, it reduces the appetite and make the transition to a better lifestyle easier and doubles the amount of weight you would lose compared to doing the lifestyle change without the surgery. You will need to be on a liquid diet with protein shakes for 2 weeks before surgery to maximize weight loss and boost your nutritional status to recover better from surgery and also for the first two weeks after surgery to let the stomach heal before we introduce other foods. After the first 2 weeks we will introduce protein bars and soft foods like scrambled eggs, cottage cheese and yogurt and after the 6th week will introduce meat, fish and cooked vegetables in small amounts. Over time you should be able to eat everything in small amounts. Side effects like nausea, vomiting, heartburn or abdominal pain are not common in the practice unless you are not following in the practice. This operation requires lifetime commitment to following in our practice and communication with me. You will much less weight and experience side effects if you don?t communicate or not following in the practice. Complications are rare and in our practice is about 1/10 of the national average. However, you can develop bleeding that may require transfusion (hasn?t happened for year in the practice), you may from complications (we did not have any deaths in the practice) and infections. Infections are usually a result of breakdown in communication or not understanding or following directions correctly. They are difficult to treat, they can happen during the first 6 weeks, they may require to be in the hospital for weeks or even months, not being able to eat by mouth and you may have drains and surgeries to try and correct the issue. Other risks and complications include possible conversion to an open procedure, leaks, small bowel obstruction, blood clots, cardiac, or pulmonary complications, as correction complications such as ulcers, insufficient weight loss and vitamin deficiencies. So far he has proven to be an excellent communicator and very compliant with all our directions accomplishing a great weight loss. I believe that he is an excellent candidate and he is ready. 2. Preop prescriptions were provided and explained the purpose of each one. Need to be purchased preop. Start Pantoprazole now as you get it from the pharmacy, 1 pill per day. Sucralfate and Zofran are for after surgery as needed. 3. Bowel prep: please do 7 packets of Miralax mixing each one with a an 8oz glass of water, crystal light, gatorade zero, or propel on 10/27/24 and the same amount on 10/28/24. The Miralax you begin with one packet at a time in 8oz water or crystal light, gatorade zero, or propel as early in the day as you can and you do them back to back until you finish them. Continue the protein shakes during the bowel prep. 4. Needs to purchase 1oz medicine cups . 5. Needs to purchase Children's liquid Tylenol for postop pain control. 6. Avoid aspirin, motrin, Advil, Aleve, Ibuprofen, Naproxyn. Tylenol is OK. 7. He needs to purchase the Celebrate multivitamins from the hospital's gift shop. 8. Will do basic preop blood work-up any day between Saturday10/21/24 and Saturday10/23/24 fasting for 12 hours and is scheduled to see the Anesthesiologist prior to the day of surgery. 9. Importance of adherence to postop folllow-up and recommendations was underscored and he understands that. 10. Stop food and bars as of tomorrow 10/21/24 and continue with 2 Premier protein shakes (mix 4oz of Premier shake with 4oz almond milk) at 4am-6am and 7am-9am, and three more Premier protein shakes (8oz of Premier shake each and NOT the whole bottle) at 10am-12pm, 1pm-3pm, 4pm-6pm 11. No soups, broths or V8 12. The patient's medical history has been reviewed and they are considered low risk for post op DVT and therefore DVT prophylaxis is not considered necessary. Travel after surgery was reviewed. The patient has not disclosed any travel plans during the first 30 days after surgery and they have been advised that within the first 30 days after surgery any bus, plane, train or car travel over 2 hours in duration is contraindicated due to the possibility of developing blood clots from immobility. Any travel, needs to include periods of ambulation of 10 minutes in duration every 2 hours. Patient was instructed to discuss any plans for travel during this period with their bariatric surgeon. 13. Use your CPAP daily and bring it to the hospital with your mask 14. Please take at the day of surgery the following medications: NONE 15. Absolutely no smoking or vaping, or marijuana until the surgery and for at least the first 4 weeks. Only nicotine patches are allowed. 16. Send me weight measurements on Saturday10/25/24 and then on 10/29/24, the day of surgery before you go to the hospital. 17. Avoid any steroids by mouth for any reason. Let me know if someone prescribes them to you 18. These instructions supersede anything else you read in the handbook, anything you watched in videos or classes or you were told by any other provider. If there is any conflict, you follow the above instructions and nothing else. Orders: Orders Complete Blood Count Auto Diff 10/20/24 E66.01 - Morbid (severe) obesity due to excess calories, E66.812 - Obesity, class 2, Z68.35 - Body mass index [BMI] 35.0-35.9, adult, Z68.38 - Body mass index [BMI] 38.0-38.9, adult C Reactive Protein 10/20/24 E66.01 - Morbid (severe) obesity due to excess calories, E66.812 - Obesity, class 2, Z68.35 - Body mass index [BMI] 35.0-35.9, adult, Z68.38 - Body mass index [BMI] 38.0-38.9, adult Hemoglobin A1c 10/20/24 E66.01 - Morbid (severe) obesity due to excess calories, E66.812 - Obesity, class 2, Z68.35 - Body mass index [BMI] 35.0-35.9, adult, Z68.38 - Body mass index [BMI] 38.0-38.9, adult Comprehensive Met. Panel 10/20/24 E66.01 - Morbid (severe) obesity due to excess calories, E66.812 - Obesity, class 2, Z68.35 - Body mass index [BMI] 35.0-35.9, adult, Z68.38 - Body mass index [BMI] 38.0-38.9, adult Type and Screen 10/20/24 E66.01 - Morbid (severe) obesity due to excess calories, E66.812 - Obesity, class 2, Z68.35 - Body mass index [BMI] 35.0-35.9, adult, Z68.38 - Body mass index [BMI] 38.0-38.9, adult Prothrombin Time INR 10/20/24 E66.01 - Morbid (severe) obesity due to excess calories, E66.812 - Obesity, class 2, Z68.35 - Body mass index [BMI] 35.0-35.9, adult, Z68.38 - Body mass index [BMI] 38.0-38.9, adult Insulin 10/20/24 E66.01 - Morbid (severe) obesity due to excess calories, E66.812 - Obesity, class 2, Z68.35 - Body mass index [BMI] 35.0-35.9, adult, Z68.38 - Body mass index [BMI] 38.0-38.9, adult Lipid Panel 10/20/24 E66.01 - Morbid (severe) obesity due to excess calories, E66.812 - Obesity, class 2, Z68.35 - Body mass index [BMI] 35.0-35.9, adult, Z68.38 - Body mass index [BMI] 38.0-38.9, adult Partial Thromboplastin Time 10/20/24 E66.01 - Morbid (severe) obesity due to excess calories, E66.812 - Obesity, class 2, Z68.35 - Body mass index [BMI] 35.0-35.9, adult, Z68.38 - Body mass index [BMI] 38.0-38.9, adult TSH reflex Free T4 10/20/24 E66.01 - Morbid (severe) obesity due to excess calories, E66.812 - Obesity, class 2, Z68.35 - Body mass index [BMI] 35.0-35.9, adult, Z68.38 - Body mass index [BMI] 38.0-38.9, adult Medications: New ondansetron 4 mg PO Q12H 20 tabs 0RF nausea and vomiting R11.0 - Nausea polyethylene glycol 3350 Mix each measuring cup with 8oz of water, Crystal light, or Gatorade zero, or Propel and do 7 measuring cups on 10/28/27 and another 7 measuring cups on 10/28/24 17 grams PO DAILY 238 grams 0RF Z01.818 - Encounter for other preprocedural examination pantoprazole 40 mg PO DAILY 90 tabs 0RF K21.9 - Gastro-esophageal reflux disease without esophagitis sucralfate 10 mL PO BID 600 mL 2RF K21.9 - Gastro-esophageal reflux disease without esophagitis
--- OUTSIDE RECORDS SUMMARY | 2024-10-21 09:01 | XMS_ITS | Clinical Summary ---
Author Organization [facility] Address [address] [place] [id number] Care Team Providers Care Medical Economics Consultant Name Role Phone Alysha Arzate MD Primary Care Provider [phone] Allergies No known active allergies Medications oxyCODONE [...] Description 12/08/2024 2:00 PM EDT Office Visit [facility] Urologic Surgery [place] [phone] Pam Herrera PA-C [address] [place] [address] Health Maintenance Due Date Last Done Comments Hepatitis C Virus Screening 1969 HIV Screening 1982 DTaP/Tdap/Td Vaccines (1 - Tdap) 1988 Hepatitis B Vaccines (1 of 3 - 19+ 3-dose series) 1988 Colonoscopy 2014 Pneumococcal Vaccines 50+ (1 of 1 - PCV) 2019 Zoster (Shingles) Vaccine (1 of 2) 2019 COVID-19 Vaccine ( season) 2023 Influenza Vaccine 10/02/2024 2022, 02/08/2021 Insurance [facility] [employer] Advance Directives * Full Code (Latest Code Status on File) Date Activated Date Inactivated Comments 01/04/2023 9:37 AM Care Teams Medical Economics Consultant Relationship Specialty Start Date End Date Alysha Arzate MD PCP - General 07/13/22
--- OUTSIDE RECORDS SUMMARY | 2024-10-21 09:01 | XMS_ITS | Clinical Summary ---
[facility] Address [address] [place] [address] Care Team Providers Care Insurance Actuary Name Role Phone An Arzate APRN Primary [...] age to complete this topic Care Teams Insurance Actuary Relationship Specialty Start Date End Date An Arzate APRN PCP - General Primary Care 04/10/16
== END 2024-10-21 14:58 | disposition home or self-care (01) ==
LOC: HO.HBS 08:22
PROVIDERS: Visit Provider Surgery
DX: E66.01 Morbid (severe) obesity due to excess calories (principal); Z68.35 Body mass index [BMI] 35.0-35.9, adult; K21.9 Gastro-esophageal reflux disease without esophagitis; Z01.818 Encounter for other preprocedural examination
CPT/HCPCS: 99214

== ENCOUNTER 2024-10-23 11:43 | Outpatient (REF) | payer BC, SELFPAY ==
--- OUTSIDE RECORDS SUMMARY | 2024-10-23 11:46 | XMS_ITS | Clinical Summary ---
Author Organization [facility] Address [address] [place] [id number] Care Team Providers Care Masking Machine Feeder Name Role Phone Alysha Arzate MD Primary Care Provider [phone] Allergies No known active allergies Medications oxyCODONE [...] Description 12/08/2024 2:00 PM EDT Office Visit [facility] Urologic Surgery [place] [phone] Pam Herrera PA-C [address] [place] [address] Health Maintenance Due Date Last Done Comments Hepatitis C Virus Screening 1969 HIV Screening 1982 DTaP/Tdap/Td Vaccines (1 - Tdap) 1988 Hepatitis B Vaccines (1 of 3 - 19+ 3-dose series) 1988 Colonoscopy 2014 Pneumococcal Vaccines 50+ (1 of 1 - PCV) 2019 Zoster (Shingles) Vaccine (1 of 2) 2019 COVID-19 Vaccine ( season) 2023 Influenza Vaccine 10/02/2024 2022, 02/08/2021 Insurance [facility] FEDERAL Advance Directives * Full Code (Latest Code Status on File) Date Activated Date Inactivated Comments 01/04/2023 9:37 AM Care Teams Masking Machine Feeder Relationship Specialty Start Date End Date Alysha Arzate MD PCP - General 07/13/22
--- OUTSIDE RECORDS SUMMARY | 2024-10-23 11:46 | XMS_ITS | Clinical Summary ---
Author Organization [facility] Address [address] [place] [address] Care Team Providers Care Special Delivery Carrier Name Role Phone An Arzate APRN Primary [...] age to complete this topic Care Teams Special Delivery Carrier Relationship Specialty Start Date End Date An Arzate APRN PCP - General Primary Care 04/10/16
--- OUTSIDE RECORDS SUMMARY | 2024-10-23 11:46 | XMS_ITS | Clinical Summary ---
Author Organization [facility] Address [address] [place] [address] Care Team Providers Care Grain Thresher Name Role Phone Alysha Arzate MD Primary Care Provider [phone] Allergies No known active allergies Medications blood pressure test kit (BLOOD PRESSURE MONITOR MISC) 1 Active cholecalciferol (VITAMIN D-3) 125 mcg [...] for 10 days. 40 each 5 Active Active Problems Problem Noted Date Diagnosed [...] Encounters Date Type Department Care Team Description 10/16/2024 4:45 PM EDT Telemedicine [facility] [address] [facility][1] [address] [place] [address] Alysha Arzate MD Elevated fasting blood sugar (Primary Dx); Hypercholesterolemia; Hypertriglyceridemia; Vitamin D deficiency; B12 deficiency from Last 3 Months Immunizations Name [...] BIOPSY; Surgeon: Jf Funes MD; Location: [facility]; Service: Bariatrics; Laterality: N/A; Family History [...] EDT Inhaled Oxygen Concentration - - Weight 103 kg (228 lb) 10/16/2024 6:08 PM EDT Height 168.9 cm (5' 6.5 ) 06/22/2024 1:45 PM EDT Body Mass Index 36.25 06/22/2024 1:45 PM EDT Plan of Treatment Upcoming Encounters Date Type Department Care Team (Late st Contact Info) Description 02/04/2025 4:30 PM EST Telemedicine [address] [phone] Alysha Arzate MD [address] [place] [phone] 06/14/2025 1:00 PM EDT Office Visit [address] [phone] Alysha Arzate MD [address] [place] [phone] Health Maintenance Due Date Last Done Comments DTaP,Tdap,and Td Vaccines (1 - Tdap) 1988 Hepatitis B Vaccines (2 of 3 - Hep B Twinrix 3-dose series) 05/24/2016 04/26/2016 Pneumococcal Vaccine: 50+ Years (1 of 1 - PCV) 2019 Zoster Vaccines (1 of 2) 2019 COVID-19 Vaccine (1 - 2023-2 5 season) 2023 Influenza Vaccine (#1) 2024 , 02/08/2021 Social Influencers of Health Screening 10/16/2025 10/16/2024, 06/08/2024 Cholesterol Screening (Lipid Panel) 06/16/2029 06/16/2024, 06/10/2023 Colorectal Cancer Screening: Colonoscopy 05/27/2030 05/27/2020 Hepatitis A Vaccines Aged Out 04/26/2016 No long er eligible based on patient's age to complete this topic HIV Screening Completed 05/21/2022 Hepatitis C Screening Completed 05/21/2022 Depression Screening Completed 10/16/2024, 06/03/2023 HIB Vaccines Aged Out No longer eligi [...] AM EDT) Cholesterol Total 172 <200 mg/dL [facility] HDL Cholesterol 44 > OR = 40 mg/dL [facility] Triglycerides 61 <150 mg/dL [facility] LDL Cholesterol 113(H) mg/dL (calc) [facility] Comment: Reference range: <100 Desirable range <100 mg/dL for primary prevention; <70 mg/dL for patients with CHD or diabetic patients with > or = 2 CHD risk factors. LDL-C is now calculated using the Saman calculation, which is a validated novel method providing better accuracy than the Friedewald equation in the estimation of LDL-C. Jose Alberto PALMER et al. ERASTO. 2013;310(19): 9067-5545 (http://education.[employer]/faq/BGB929) Chol/HDLC Ratio 3.9 <5.0 (calc) [facility] Non HDL Cholesterol 128 <130 mg/dL (calc) [facility] Comment: For patients with diabetes plus 1 major ASCVD risk factor, treating to a non-HDL-C goal of <100 mg/dL (LDL-C of <70 mg/dL) is considered a therapeutic option. Blood Venous blood specimen / Unknown 06/16/2024 10:26 AM EDT 06/16/2024 10:27 AM EDT Narrative [facility] - 06/16/2024 10:54 PM EDT FASTING:YES FASTING: YES Result [facility] Alysha Arzate MD LAB BLOOD ORDERABLES Final R esult [facility] [address] [place] [phone] * Depression Screening (06/03/2023) [facility] Depression Screening abstracted [facility] Provider HEALTH MAINTENANCE Final Result * HIV Screening (05/21/2022) [facility] HIV Screening abstracted [facility] Provider HEALTH MAINTENANCE Final Result * Hepatitis C Screening (05/21/2022) [facility] Hepatitis C Screening abstracted [facility] Provider HEALTH MAINTENANCE Final Result * Colonoscopy (05/27/2020) [facility] Colonoscopy abstracted,no interpretation Anatomical Region Laterality Modality Other us Historical Provider HEALTH MAINTENANCE Final Result from Last 3 Months or Most Recently Relevant to Health Maintenance Insurance [facility] Care Teams Grain Thresher Relationship Specialty Start Date End Date Alysha Arzate MD [address] [phone] PCP - General Internal Medicine 06/08/24
[2024-10-23 12:01] LABS: MANUAL DIFF FLAG NO
[2024-10-23 12:06] LABS: Hematocrit 44.2 % (42.0-52.0); Hemoglobin 14.2 g/dl (14.0-18.0); Imm Gran Abs Auto 0.02 X10*3/uL (0.00-0.03); Imm Gran Pct Auto 0.3 % (0.0-0.4); Lymphocytes Absolute Auto 2.4 X10*3/uL (1.2-4.9); Mean Corpuscular HGB Conc 32.1 g/dl (31.0-36.0); Mean Corpuscular Hemoglobin 29.5 pg (27.0-33.0); Mean Corpuscular Volume 91.7 fL (80.0-98.0); NRBC Abs Auto 0.000 X10*3/uL (0.0-0.012); NRBC Pct Auto 0.0 /100WBC (0.0-0.2); Platelet Count 243 X10*3/uL (160-400); Red Blood Count 4.82 X10*6/uL (4.60-5.80); White Blood Count 7.0 X10*3/uL (4.8-10.8)
[2024-10-23 12:12] LABS: INTERNATIONAL NORM RATIO 1.2 (0.9-1.1); Prothrombin Time 14.0 SEC (10.9-12.4)
[2024-10-23 12:14] LABS: Partial Thromboplastin Time 33.5 SEC (26.7-34.1)
[2024-10-23 12:25] LABS: Hemoglobin A1C 128.0788 umol/L; Total Hemoglobin (HGBA1C) 3783.5420 umol/L
[2024-10-23 13:36] LABS: Alanine Aminotransferase 15 U/L (0-40); Albumin Level 4.2 g/dL (3.5-5.0); Alkaline Phosphatase 87 U/L (39-117); Anion Gap 13 (12-20); Aspartate Amino Transferase 26 U/L (5-37); Blood Urea Nitrogen 17 mg/dL (9-16); Calcium 9.1 mg/dL (8.4-10.2); Carbon Dioxide 27 mmol/L (22-29); Chloride 106 mmol/L (96-108); Cholesterol 149 mg/dL (<200); Estimated Glomerular Filt Rate > 60; HDL Cholesterol 31 mg/dL (>40); Potassium 4.3 mmol/L (3.3-5.1); Sodium 140 mmol/L (135-145); Total Protein 7.3 g/dL (6.5-8.0); Triglycerides 57 mg/dL (<150)
== END 2024-10-23 11:44 | disposition home or self-care (01) ==
LOC: HO.LAB 11:43
PROVIDERS: PCP Internal Medicine; Visit Provider Surgery
DX: E66.812 Obesity, class 2 (principal); Z68.38 Body mass index [BMI] 38.0-38.9, adult; Z13.1 Encounter for screening for diabetes mellitus
CPT/HCPCS: 36415; 80053; 80061; 83036; 83525; 84443; 85025; 85610; 85730; 86140

== ENCOUNTER 2024-10-29 07:58 | Inpatient (IN) | payer BC, SELFPAY ==
[2024-10-26 11:23] VITALS: BMI 34.9
--- NOTE | 2024-10-27 15:25 | HO.ANESPROP2 ---
Documented by User: Rowan Prather NP 10/27/24 15:26 HPI - Anesthesia Eval Consult details Narrative: 54yo M for Gastrectomy Sleeve,EGD,possible Diaphragmatic Hernia,possible Ventral Hernia,possible Open PMFSH Active Problems Active Problems: All Active Problems Vitamin B1 deficiency (Acute) BMI 38.0-38.9,adult (Acute) GERD (gastroesophageal reflux disease) (Acute) Obstructive sleep apnea on CPAP (Acute) Obesity (Acute) Past Medical History Medical History GERD (gastroesophageal reflux disease) Obstructive sleep apnea on CPAP Obesity Family History Family History Mother No problems noted. Father No problems noted. Daughter Mandel Syndrome Thyroid condition Daughter Thyroid condition Son No problems noted. Surgical History Surgical History History of esophagogastroduodenoscopy (EGD) (10/09/24) Hx of colonoscopy Hx of hernia repair History of Problems with Anesthesia: No Social History Social History (Updated 10/26/24 @ 11:27 by Tari Gibbs RN) Household Members: Spouse Housing: House Alcohol intake: current Alcohol intake frequency: a few times a month Patient Tobacco Use Status: Never used Tobacco Use of substances other than those prescribed or required for medical reasons: No Have you been hit, kicked, punched, or otherwise hurt by someone within the past year? If so, by whom?: No Are you DNR?: No Advance Directives: No Advance Directives Information Provided: Yes Advance Directives on File: No Poor oral hygiene: No Meds Allergies Allergy/AdvReac Type Severity Reaction Status Date / Time No Known Allergies Allergy Verified 10/29/24 08:01 Exam Height,Weight and Vital Signs: Height 5 ft 7 in Weight 101.151 kg Pertinent Lab Results Pertinent Lab Results: Laboratory Tests 10/23/24 11:50 Blood Type O Positive Antibody Screen NEGATIVE Laboratory Tests 10/23/24 11:58 WBC 7.0 Hgb 14.2 Hct 44.2 Plt Count 243 Sodium 140 Potassium 4.3 Chloride 106 Carbon Dioxide 27 BUN 17 H Creatinine 1.03 Narrative Narrative: EKG 09/2024 Vent. Rate : 58 BPM Atrial Rate : 58 BPM P-R Int : 150 ms QRS Dur : 96 ms QT Int : 444 ms P-R-T Axes : 37 -10 9 degrees QTcB Int : 435 ms Sinus bradycardia Otherwise normal ECG No previous ECGs available Assessment and Plan Assessment Anesthesia Assessment: Chart Reviewed Final Anesthetic Review History of Problems with Anesthesia: No Documented by User: Porter Limon MD 10/29/24 08:27 PMF Past Medical History Medical History GERD (gastroesophageal reflux disease) Obstructive sleep apnea on CPAP Obesity Family History Family History Mother No problems noted. Father No problems noted. Daughter Mandel Syndrome Thyroid condition Daughter Thyroid condition Son No problems noted. Family history of problems with anesthesia: No Surgical History Surgical History History of esophagogastroduodenoscopy (EGD) (10/09/24) Hx of colonoscopy Hx of hernia repair Social History Social History (Updated 10/26/24 @ 11:27 by Tari Gibbs RN) Household Members: Spouse Housing: House Alcohol intake: current Alcohol intake frequency: a few times a month Patient Tobacco Use Status: Never used Tobacco Use of substances other than those prescribed or required for medical reasons: No Have you been hit, kicked, punched, or otherwise hurt by someone within the past year? If so, by whom?: No Are you DNR?: No Advance Directives: No Advance Directives Information Provided: Yes Advance Directives on File: No Poor oral hygiene: No Meds Allergies Allergy/AdvReac Type Severity Reaction Status Date / Time No Known Allergies Allergy Verified 10/29/24 08:01 Exam Airway Mallampati Class: III TM Dist: >3cm Neck ROM: Full Assessment and Plan Assessment Anesthesia Assessment: Anesthesia Plan Discussed Final Anesthetic Review Family History of Problems with Anesthesia: No NPO: Yes ASA Class: III Final Preanesthetic Review: No Changes in Pt Med Stat, Meds/Allgs Chart Reviewed, Consent Obtained/Reviewed and Anes Risks/Benef Reviewed Patient Risk: Intermediate Procedure Risk: Intermediate Anesthetic Plan Anesthetic Plan: GA Disposition: Standard PACU
[2024-10-29] VITALS (10 sets, daily range): BP systolic 110–147; BP diastolic 57–75; PULSE 52–74; RESP 11–18; TEMP 36.1–36.7; O2SAT 94–100; BMI 34.3
[2024-10-29] MEDS: Aprepitant 32 MG/4.4 ML VIAL IVPUSH (08:27)
[2024-10-29] MEDS: Lactated Ringers 1,000 ML 999 ML IV (08:29)
--- OUTSIDE RECORDS SUMMARY | 2024-10-29 08:39 | XMS_ITS | Clinical Summary ---
Author Organization [facility] Address [address] [place] [address] Care Team Providers Care Tube Cleaner Name Role Phone Alysha Arzate MD Primary Care Provider Allergies No known active allergies Medications blood [...] Team Description 10/16/2024 4:45 PM EDT Telemedicine [facility] [address] [facility] [address] [place] [address] Alysha Arzate MD Elevated fasting [...] BIOPSY; Surgeon: Jf Funes MD; Location: [facility]; Service: Bariatrics; Laterality: N/A; Family [...] Info) Description 02/04/2025 4:30 PM EST Telemedicine [address] [phone] Alysha Arzate MD [address] [place] [phone] 06/14/2025 1:00 PM EDT Office Visit [address] [phone] Alysha Arzate MD [address] [place] [phone] Health Maintenance Due Date Last Done Comments [...] AM EDT) Cholesterol Total 172 <200 mg/dL [facility] HDL Cholesterol 44 > OR = 40 mg/dL [facility] Triglycerides 61 <150 mg/dL [facility] LDL Cholesterol 113(H) mg/dL (calc) [facility] Comment: Reference range: <100 Desirable range <100 mg/dL for primary prevention; <70 mg/dL for patients with CHD or diabetic patients with > or = 2 CHD risk factors. LDL-C is now calculated using the Saman calculation, which is a validated novel method providing better accuracy than the Friedewald equation in the estimation of LDL-C. Jose Alberto PALMER et al. [employer]STO. 2013;310(19): 6762-3274 (http://education.[employer]/faq/HVW717) Chol/HDLC Ratio 3.9 <5.0 (calc) [facility] Non HDL Cholesterol 128 <130 mg/dL (calc) [facility] Comment: For patients with diabetes plus 1 major ASCVD risk factor, treating to a non-HDL-C goal of <100 mg/dL (LDL-C of <70 mg/dL) is considered a therapeutic option. Blood Venous blood specimen / Unknown 06/16/2024 10:26 AM EDT 06/16/2024 10:27 AM EDT Narrative [facility] - 06/16/2024 10:54 PM EDT FASTING:YES FASTING: YES Result [facility] Alysha Arzate MD LAB BLOOD ORDERABLES Final R esult [facility] [address] [place] [phone] * Depression Screening (06/03/2023) [facility] Depression Screening abstracted [facility] Provider HEALTH MAINTENANCE Final Result * HIV Screening (05/21/2022) [facility] HIV Screening abstracted [facility] Provider HEALTH MAINTENANCE Final Result * Hepatitis C Screening (05/21/2022) [facility] Hepatitis C Screening abstracted [facility] Provider HEALTH MAINTENANCE Final Result * Colonoscopy (05/27/2020) [facility] Colonoscopy abstracted,no interpretation Anatomical Region Laterality Modality Other us Historical Provider HEALTH MAINTENANCE Final Result from Last 3 Months or Most Recently Relevant to Health Maintenance Insurance [facility] Care Teams Tube Cleaner Relationship Specialty Start Date End Date Alysha Arzate MD [address] [phone] PCP - General Internal Medicine 06/08/24
--- OUTSIDE RECORDS SUMMARY | 2024-10-29 08:39 | XMS_ITS | Clinical Summary ---
Author Organization [facility] Address [address] [place] [id number] Care Team Providers Care Assignment Editor Name Role Phone Alysha Arzate MD Primary Care Provider [phone] Allergies No known active allergies Medications oxyCODONE [...] Description 12/08/2024 2:00 PM EDT Office Visit [facility] [place] [phone] Pam Herrera PA-C [address] [place] [address] Health Maintenance Due Date Last Done Comments Hepatitis C Virus Screening 1969 HIV Screening 1982 DTaP/Tdap/Td Vaccines (1 - Tdap) 1988 Hepatitis B Vaccines (1 of 3 - 19+ 3-dose series) 1988 Colonoscopy 2014 Pneumococcal Vaccines 50+ (1 of 1 - PCV) 2019 Zoster (Shingles) Vaccine (1 of 2) 2019 COVID-19 Vaccine ( season) 2023 Influenza Vaccine 10/02/2024 2022, 02/08/2021 Insurance [facility] [employer] Advance Directives * Full Code (Latest Code Status on File) Date Activated Date Inactivated Comments 01/04/2023 9:37 AM Care Teams Assignment Editor Relationship Specialty Start Date End Date Alysha Arzate MD PCP - General 07/13/22
--- OUTSIDE RECORDS SUMMARY | 2024-10-29 08:40 | XMS_ITS | Clinical Summary ---
Author Organization [facility] Address [address] [place] [address] Care Team Providers Care Chef Assistant Name Role Phone An Arzate APRN Primary [...] age to complete this topic Care Teams Chef Assistant Relationship Specialty Start Date End Date An Arzate APRN PCP - General Primary Care 04/10/16
--- NOTE | 2024-10-29 10:20 | MHC.SHP ---
Pre-Procedural Eval Section A - 24 Hr Update-Section A only Date of Service: 10/29/24 The patient is an INPATIENT: Yes The patient has been examined within 24 hours of the surgical procedure. The History & Physical has been completed within 30 days and I have reviewed it.: Yes Section B - Complete if H&P > 30 days Chief Complaint: Obesity Relevant Family History (Specify if Yes): No Relevant Social History: None Present Medications: None Medical History: No relevant PMH History of Previous Operations: No relevant previous surgery Allergies: Allergies Allergy/AdvReac Type Severity Reaction Status Date / Time No Known Allergies Allergy Verified 10/29/24 08:01 Review of Systems Sugical H&P ROS: Negative: Constitution, Cardiovascular, Respiratory, Neurological, Psychiatric, Hem-Onc, Allergic/Immunologic, Gastrointestinal, Genitourinary, Musculoskeletal, Integumentary, Endocrine and Eyes/Ears/Nose/Throat Exam Surgical H&P Exam: Normal: HEENT, Normal: Heart, Normal: Lungs, Normal: Extremities, Normal: Abdomen, Normal: Skin and Normal: Neurological Plan Diagnosis/Plan: Unchanged I have reviewed the history and physical and performed a pertinent physical examination on my patient. No changes have occurred unless specified. Time Spent With Patient Time: Total time managing care of this patient today ____ minutes.
[2024-10-29] MEDS: Lactated Ringers 1,000 ML 100 ML IVCONT ×2 (10:21→14:58)
--- NOTE | 2024-10-29 10:21 | P.BOP_ITS ---
Brief Operative Note Date of Service: 10/29/24 Pre-op diagnosis: Severe obesity with comorbidities (see below) Post-op diagnosis: same (& congenital abdominal adhesions) Procedure: INITIAL PATIENT BMI ON PRESENTATION AT OUR OFFICE: 38.6 kg/m2 LAST BMI BEFORE SURGERY: 34.5 kg/m2 COMORBIDITIES: Sleep apnea on CPAP, GERD ?The patient presented to the Weight Management Program with significant obesity that was negatively impacting the patient's comorbidities as listed above.? The program is a phased program with a special focus on preoperative medical weight management to promote substantial weight loss and prepare the patients for the second phase of the program: bariatric surgery. The patient participated in an intensive weekly lifestyle ?intervention and exercise program during which the patient ?has lost between the initial office visit and the last preoperative visit 26.8lbs, or 10.87% of initial actual body weight. It was deemed appropriate for the patient to now have bariatric surgery. In light of the current Covid-19 pandemic and the well documented strong association of obesity and increased risk of worse outcomes if infected with Covid-19 (REFERENCES: https://pubmed.ncbi.nlm.nih.gov/96623942/ ,? https://pubmed.ncbi.nlm.nih.gov/28450380/ ), any delay in undergoing bariatric surgery may lead to the patient's worsening health condition and increased?risk of more severe Covid-19 disease if infected. In addition a recent?study from [facility] published in [employer] Surgery on 02/27/2021 ([email or web address] [email or web address].pdf) found that, among patients with obesity, substantial weight loss achieved with surgery was associated with improved outcomes of COVID-19 infection. The findings suggest that obesity can be a modifiable risk factor for the severity of COVID-19 infection. In addition, the patient met the BMI-criteria for bariatric surgery based on the BMI on initial presentation. The patient should not be penalized for achieving such weight loss because ?it is not sustainable long-term without surgical intervention and it was achieved in preparation for bariatric surgery ?under my direction and based on my published research ([email or web address]:/[email or web address]).pdf and? https://www.soard.org/article/M9019-0658(42)92337-X/pdf ) ?that a 10% preoperative weight loss improves long-term weight loss after surgery and reduces perioperative complications.? Insurance carriers such as [facility] have endorsed my recommendations ?and have included in their policies criteria to include a 10% preoperative weight loss requirement. PROCEDURE: Esophago-gastroscopy, laparoscopic lysis of adhesions, laparoscopic sleeve gastrectomy and laparoscopic gastropexy INDICATIONS: This is a 54 year-old male who was electively scheduled for laparoscopic, possibly open sleeve gastrectomy. The risks and complications of the procedure were discussed with the patient in advance, particularly the possibility of ; pulmonary embolism; staple line leak; bleeding; GERD; cardiac, pulmonary, or renal complications; as well as long-term problems such as insufficient weight loss, vitamin deficiency, strictures, or ulcers. The patient understood all the risks, and was in agreement to proceed with surgery. DESCRIPTION OF PROCEDURE: After informed consent was obtained from the patient, the patient was given preoperative antibiotics, and was transferred to the operating room. After successful induction of general anesthesia, pneumatic compression devices were placed on both lower extremities. An upper endoscopy was performed next. The oropharynx and esophagus appeared to be within normal limits. There was no diaphragmatic hernia present.. The stomach was entered. Then after all fluid and air were suctioned and the stomach was fully decompressed, the scope was withdrawn and secured in the mid esophagus. The patient was then prepped and draped in the usual sterile manner, and abdominal access was established at the right upper quadrant with the Christine technique. A 12 mm blunt port was inserted, and the abdomen was insufflated with CO2 to a pressure of 15 mmHg. Under direct visualization, additional ports were placed, specifically two 5 mm Versi-step ports to the left upper quadrant, and a 5 mm Versi-Step port to the right upper quadrant. 1% lidocaine plain was used to infiltrate all port sites as well as all fascia defects. ? PLEASE REVIEW BEFORE TO INCLUDE THIS SENTENCE: There were adhesions in the abdomen involving the omentum, the falciform ligament and the anterior abdominal wall. Those were lysed completely with the ultrasonic device. Following that, the patient was placed in a steep reverse Trendelenburg position. An additional 5 mm port was placed to the right flank for the Mediflex retractor that was used to retract the left lobe of the liver. The gastro-esophageal fat pad was opened with the ultrasonic device (Thunderbeat, Olympus) and the anterior esophagus and hiatus were exposed. The angle of His was opened with the ultrasonic device the fundus of the stomach from any diaphragmatic and splenic attachments. I then opened the gastrocolic ligament between the transverse colon and the greater curvature of the stomach with the ultrasonic device to enter the lesser sac and facilitate the ligation of the short gastric vessels. I started at a mid-point along the greater curvature and using the Thunderbeat, all short gastric vessels were divided all the way to the angle of His until the left roman was completely dissected at its entirety. I then divided the gastro-colic ligament distally to a distance of about 3-4 cm proximal to the pylorus. There were extensive congenital adhesions between the pancreas and posterior gastric wall. Those were lysed completely with the ultrasonic device. Adhesiolysis took approximately 45 min to complete. ? The stomach was then divided transversely with one Endo VIC-45 purple and four VIC-60 articulating purple loads using the SIGNIA stapler and loads. Every effort was made that the gastric sleeve had a tubular shape and an even caliber throughout. Once the sleeve resection was completed, the staple line of the gastric sleeve was reinforced with Hemoclips. The resected stomach was retrieved without difficulty from the Christine port. A gastropexy was then performed in order to prevent postoperative GERD and partial gastric volvulus. Several interrupted 2.0 Surgidac sutures were placed between the sleeve's staple line and the previously divided greater omentum and gastro-colic ligament using the Endo-Stitch device. ?An upper endoscopy was performed. There was no narrowing at the GE junction. The scope was easily advanced all the way to the pylorus which was clearly visualized. There was no narrowing anywhere and the sleeve's caliber was even throughout. The sleeve's staple line was inspected and there was no evidence of ischemia, bleeding or dehiscence. At that point the gastroscope was withdrawn from the patient?s mouth while we were decompressing the bowel and the stomach from any remaining air. I looked into the lesser sac to see how the sleeve was situating and it was situating well. There was no bleeding from the staple line, spleen, or short gastric vessels. The Mediflex retractor was removed, and the undersurface of the liver was inspected and there was no bleeding. The patient was placed in supine position. I closed the fascial defect of the 12 mm port site with a figure of eight #1 Polysorb suture. Then 30cc Ropivacaine plain with 10 mg of Dexamethasone were used to infiltrate the fascial closure as well as all skin incisions. At this point, the abdomen was deflated, all ports were removed under direct vision, and no bleeding was noted from any of the port sites. The skin incisions were irrigated with saline and were closed with 4-0 absorbable monofilament sutures. Steri-Strips and OpSites were used to cover all incisions. The patient was extubated and was transferred in stable condition to the recovery room for further care. I was present and performed all maharaj parts of the procedure. Ms. Huitronchristiana was the nurse first aid. There were no residents to assist with this case. Jim Miranda MD, PhD, FACS Surgeon: Rosas Miranda MD Anesthesia: local and other (TAP block) Was an Eyeglass Cutter used for this Procedure?: No Eyeglass Cutter: Charlotte Thomas Estimated blood loss (mL): 10 IV fluids (mL): 2,000 Urine output (mL): 0 (No [place] to record output) Pathology: other (1) Stomach, 2) Gastro-esophageal fat pad) Condition: stable Disposition: PACU
--- NOTE | 2024-10-29 10:24 | P.PNGS_ITS ---
Subjective Subjective Date of Service: 10/30/24 Interval history: Feels well. Mild incisional pain. He is tolerating phase 1 bariatric diet Physical Exam 2 Vital Signs: Vital Signs: Last Vital Signs Temp 97.5 F 10/29/24 08:06 Pulse 52 10/29/24 08:06 Resp 15 10/29/24 08:06 BP 125/66 10/29/24 08:06 Pulse Ox 98 10/29/24 08:06 O2 Del Method Room Air 10/29/24 08:06 BMI result Body Mass Index 34.3 GI: Inspection: Yes normal to inspection, Yes incision (clean, dry and intact) and Yes obesity Palpation (GI): Soft to palpation Extrem: Right lower extremity: normal to inspection (no calf tenderness) L eft lower extremity: normal to inspection (no calf tenderness) Objective Data Active Medications Fentanyl (Fentanyl Citrate/Pf 100 Mcg/2 Ml Vial) 50 mcg IVPUSH Q5M PRN PRN Reason: Pain, Moderate to Severe (Pain Scale 4-10) Stop: 10/29/24 14:27 Lactated Ringer's (Lr) 1,000 mls @ 100 mls/hr IVCONT .Q10H JUSTEN Stop: 10/29/24 11:59 Last Admin: 10/29/24 10:21 Dose: 100 mls/hr Documented By: CHLOÉ Naloxone HCl (Naloxone Hcl 0.4 Mg/Ml Vial) 0.04 mg IVPUSH Q5M PRN PRN Reason: Excessive sedation or RR < 8 Ondansetron HCl (Ondansetron Hcl 4 Mg/2 Ml Vial) 4 mg IVPUSH ONCE PRN PRN Reason: Nausea and Vomiting Stop: 10/29/24 14:27 Labs 10/30/24 05:35 10/30/24 05:35 Procedures Date of Service Date of Service: 10/30/24 Progress Note: A&P Assessment and plan (1) Obesity: Status: Acute Assessment and Plan: s/p laparoscopic sleeve gastrectomy, lysis of adhesions and gastropexy Doing well Will check am labs and if OK the patient will be discharged home (2) BMI 35.0-35.9,adult: Status: Acute (3) GERD (gastroesophageal reflux disease): Status: Acute (4) Obstructive sleep apnea on CPAP: Status: Acute (5) Congenital intra-abdominal adhesions: Status: Acute (6) S/P laparoscopic sleeve gastrectomy: Status: Acute Time Spent With Patient Time: Total time managing care of this patient today ____ minutes. Quality Stroke Does the patient have a stroke diagnosis?: No VTE Prior VTE?: No VTE Risk Level:: Surgical - moderate VTE Device Contraindication: N/A - Device Ordered VTE Drug Contraindication: Treatment Not Indicated
--- NOTE | 2024-10-29 13:33 | PM.DS ---
DS: Providers Provider Date of Service: 10/30/24 Date of admission: 10/29/24 07:58 Date of discharge: 10/30/24 Primary care physician: Alysha Arzate MD DS: Diagnosis Discharge Diagnosis (1) Obesity: Status: Acute (2) GERD (gastroesophageal reflux disease): Status: Acute (3) Obstructive sleep apnea on CPAP: Status: Acute (4) Congenital intra-abdominal adhesions: Status: Acute (5) S/P laparoscopic sleeve gastrectomy: Status: Acute DS: Summary Hospital Course Hospital Course: ADMITTING DIAGNOSIS: morbid obesity, GERD, SAKINA on CPAP DISCHARGE DIAGNOSIS: same, s/p laparoscopic sleeve gastrectomy and gastropexy PAST SURGICAL HISTORY:? Hx of colonoscopy Hx of hernia repair PROCEDURE: upper endoscopy, laparoscopic sleeve gastrectomy and gastropexy DISCHARGE SUMMARY: History of Present Illness: The patient is a?54 year-old man with a BMI of?34.3 kg/m2 and associated co-morbidities as described above. The patient had extensive work-up, lost?27.6 lbs preoperatively and was electively scheduled for laparoscopic, possible open sleeve gastrectomy and gastropexy. Risks and complications of the surgery were discussed with the patient in advance, particularly the possibility of , pulmonary embolism, anastomotic leak, bleeding, bowel injury, GERD, cardiac, renal or pulmonary complications. The patient understood all the risks and was in agreement with the surgical plan. Hospital Course: The patient underwent an uneventful laparoscopic sleeve gastrectomy with gastropexy on the day of admission. Postoperatively, the patient was transferred to the surgical floor. The patient received IV acetaminophen and IV Dilaudid for pain control. Patient was started on bariatric phase 1 diet POD #0. On postoperative day one, the patient was feeling well without nausea, vomiting, fevers, or tachycardia. The patient had some mild incisional pain and the abdomen was soft.? ? On the morning of postoperative day one, the patient was continued on 1 ounce of water or ice every half hour. During the day, the patient did fairly well, having some incisional pain, but able to ambulate adequately and to tolerate liquids well. Since the patient is doing well, we decided that the patient was ready to be discharged. The patient was given instructions to follow-up in office next week and to call the office for any fever over 101, persistent abdominal pain, nausea, vomiting, GERD, symptoms of DVT such as calf tenderness, or leg swelling, or pulmonary embolism such as chest pain or shortness of breath.? The patient was also instructed to drink 40-60 ounces of liquids per day using the 1-ounce cups. The patient had been given prescriptions for Tylenol for pain, Zofran prn for nausea, and pantoprazole and carafate previously. The patient was encouraged to ambulate and use the incentive spirometer. The patient was allowed to shower, but no baths, and encouraged to stay active at home. All of these instructions were given to the patient personally. All questions were answered and the patient understood all instructions, the instructions were also given to the patient in print. Time Attestation Discharge Coordination Time (in mins): 30 Quality: Safe Use of Opioids Does Pt have an Active Cancer Diagnosis on the Problem List?: No Quality: Stroke Does the patient have a stroke diagnosis?: No Physical Exam Vital Signs: Vital Signs: Last Vital Signs Temp 97.5 F 10/29/24 13:24 Pulse 71 10/29/24 13:29 Resp 11 L 10/29/24 13:29 BP 128/68 10/29/24 13:29 Pulse Ox 98 10/29/24 13:29 O2 Del Method Room Air 10/29/24 13:29 O2 Flow Rate 6 10/29/24 13:24 BMI result Body Mass Index 34.3 DS: Data Data Completed and Pending Pending studies at discharge: Pending at discharge 10/29/24 12:20 Surgical [PTH] Routine Discharge Plan Discharge Anticipated Discharge Date/Time: 10/29/24 13:31 Patient Disposition: Home, Self-Care Discharge Diagnosis: s/p laparoscopic sleeve gastrectomy Referrals: Alysha Arzate MD [Primary Care Provider, Internal Medicine] - 1 Week Discharge Medications: Continued sucralfate 100 mg/mL suspension 10 ml PO BID Qty: 600 2RF pantoprazole 40 mg tablet,delayed release (DR/EC) 40 mg PO DAILY Qty: 90 0RF ondansetron 4 mg tablet,disintegrating 4 mg PO Q12H Qty: 20 0RF Discontinued thiamine HCl (vitamin B1) 100 mg tablet 100 mg PO DAILY Qty: 90 0RF Discharge Orders: Discharge Order (Routine); Ordered 10/30/24 Ordered By: Rosas Miranda Activity on Discharge: No heavy lifting Stand Alone Forms: Patient Portal Discharge page Print Language: Armenian Care Plan Goals: weight loss Health Concerns: obesity Plan of Treatment: No tub baths, sex or returning to work until discussed at first post op appointment. No alcohol, tobacco or illegal drug use. Continue to use incentive spirometer hourly while awake. Walk in home for 5- 10 minutes every 2 hours during the first week. Wear abdominal binder with activity. Follow all meal plan instructions from your bariatric surgeon. Review bariatric handbook and call with any questions. Discharge Instructions 1. Please call your doctor or come back to the emergency room should any new symptoms arise. 2. Activity: abstain from alcohol,? limited stair climbing, no bending, no driving, no exercise, no illicit substances, no lifting, no sex, no tub bath, no work. 4. Diet: follow your bariatric surgeon's recommendations for advancing diet. 5. Dressing Change/Wound Care: Your incisions are covered with waterproof dressings. You can shower with these and pat dry. Do not rub over dressings or incisions. If the area is tender, you may apply an ice pack for short intervals (no more than 20 minutes on, followed by at least 20 minutes off). Do not apply heat. Do not use creams, lotions, or topical antibiotics unless instructed to do so by your surgeon. 6. Call your doctor if: - Your temperature exceeds 101.5 F - You experience excessive pain or swelling - You have an unexpected reaction to medication - You have excessive bleeding - You experience continued vomiting/nausea - Your incision begins to separate - Your incision shows signs of infection such as increased redness, swelling, excessive pain, heat, or drainage (light blood or clear fluid is normal) General instructions: No lifting greater than 10 lbs for the next 6 weeks. [address] driving within 24 hours of taking narcotic pain medications. If you do not move your bowels in the next 2 days, please take milk of magnesia over the counter. Please follow the post op diet and do not advance your diet until instructed by your surgeon or until you are seen in the office in about 1 week. Please walk around your home every hour or two to prevent blood clots from forming in your legs. You do not need to wake from sleeping to walk. Please sleep in a bed or couch to prevent kinking at the hips and knees. Please take your incentive spirometer (your lung configuration developer) home with you and use it for the next few days to prevent pneumonias. You may shower; no hot tubs, baths or swimming pools. Please make sure you are consuming 40-60 ounces of total fluids per day. Avoid all carbonation. Please call the office with any questions or concerns such as increasing abdominal pain, fever, chills, shortness of breath, chest pain, leg pain or swelling, or redness or drainage from your incisions. Do not hesitate to contact the office with any questions at . The patient's medical history has been reviewed and they are considered low risk for post op DVT and therefore DVT prophylaxis is not considered necessary. Travel after surgery was reviewed. The patient has not disclosed any travel plans during the first 30 days after surgery and they have been advised that within the first 30 days after surgery any bus, plane, train or car travel over 2 hours in duration is contraindicated due to the possibility of developing blood clots from immobility. Any travel, needs to include periods of ambulation of 10 minutes in duration every 2 hours.? The patient was instructed to discuss any plans for travel during this period with their bariatric surgeon. Assessment: s/p laparoscopic sleeve gastrectomy with gastropexy Discharge Date/Time: 10/30/24 09:23
[2024-10-29 14:21] LABS: Hematocrit 43.1 % (42.0-52.0); Hemoglobin 14.0 g/dl (14.0-18.0)
[2024-10-29 14:35] LABS: Anion Gap 11 (12-20); Blood Urea Nitrogen 15 mg/dL (9-16); Calcium 8.8 mg/dL (8.4-10.2); Carbon Dioxide 26 mmol/L (22-29); Chloride 105 mmol/L (96-108); Creatinine Clr Calc Pharmacy 90.9; Estimated Glomerular Filt Rate > 60; Potassium 4.2 mmol/L (3.3-5.1); Sodium 138 mmol/L (135-145)
--- NOTE | 2024-10-29 14:54 | PHA.MEDREC ---
Pharmacy Consult ? Medication Reconciliation Pharmacy has completed the medication reconciliation. CHECKED MED REC DONE BY NURSING
[2024-10-29] MEDS: 0.9 % Sodium Chloride Flush 3 ML SYRINGE IVFLUSH (20:22)
[2024-10-30] MEDS: Lactated Ringers 1,000 ML 100 ML IVCONT (00:34)
[2024-10-30 03:43] VITALS: BP 100/63; PULSE 64; RESP 18; TEMP 36.4; O2SAT 95
[2024-10-30 06:15] LABS: MANUAL DIFF FLAG NO
[2024-10-30 06:49] LABS: Anion Gap 11 (12-20); Blood Urea Nitrogen 13 mg/dL (9-16); Calcium 8.4 mg/dL (8.4-10.2); Carbon Dioxide 24 mmol/L (22-29); Chloride 107 mmol/L (96-108); Creatinine Clr Calc Pharmacy 110.2; Estimated Glomerular Filt Rate > 60; Potassium 4.3 mmol/L (3.3-5.1); Sodium 138 mmol/L (135-145)
[2024-10-30 06:58] LABS: Hematocrit 38.6 % (42.0-52.0); Hemoglobin 13.1 g/dl (14.0-18.0); Imm Gran Abs Auto 0.04 X10*3/uL (0.00-0.03); Imm Gran Pct Auto 0.6 % (0.0-0.4); Lymphocytes Absolute Auto 1.2 X10*3/uL (1.2-4.9); Mean Corpuscular HGB Conc 33.9 g/dl (31.0-36.0); Mean Corpuscular Hemoglobin 29.9 pg (27.0-33.0); Mean Corpuscular Volume 88.1 fL (80.0-98.0); NRBC Abs Auto 0.000 X10*3/uL (0.0-0.012); NRBC Pct Auto 0.0 /100WBC (0.0-0.2); Platelet Count 242 X10*3/uL (160-400); Red Blood Count 4.38 X10*6/uL (4.60-5.80); White Blood Count 7.0 X10*3/uL (4.8-10.8)
[2024-10-30 07:40] VITALS: BP 120/60; PULSE 74; RESP 16; TEMP 36.9; O2SAT 100
--- NOTE | 2024-10-30 08:13 | HO.POSTANES ---
Post Anesthesia Evaluation Post Anesthesia Evaluation Date of Service: 10/30/24 Vital Signs: Vital Signs Temp Pulse Resp BP Pulse Ox O2 Del Method 10/30/24 07:40 98.5 F 74 16 120/60 100 Room Air 10/30/24 03:43 97.5 F 64 18 100/63 95 Room Air 10/29/24 23:19 98.1 F 68 16 110/57 L 94 CPAP Anesthesia: General Mental Status: Awake Pain Control: Satisfactory Nausea/Vomiting: None Hydration: Adequate Anesthesia-Related Issues: No Anes. Related Issues
--- NOTE | 2024-10-30 09:24 | MHC.CM.PN ---
Patient dc'd home self care via private transport prior to CM assessment.
== END 2024-10-30 09:23 | disposition home or self-care (01) | DRG 403 ==
LOC: HO.SSSA 13:31 → HO.S3 13:40
PROVIDERS: Physician Assistant Surgical; Admitting Provider Surgery; PCP Internal Medicine; Visit Provider Surgery
PROC: 0DB64Z3 Excision of Stomach, Percutaneous Endoscopic Approach, Vertical (ICD-10-PCS; CPT 43845; principal; 2024-10-29 10:20)
DX: E66.01 Morbid (severe) obesity due to excess calories (principal); Q43.3 Congenital malformations of intestinal fixation; G47.33 Obstructive sleep apnea (adult) (pediatric); K21.9 Gastro-esophageal reflux disease without esophagitis; Z68.34 Body mass index [BMI] 34.0-34.9, adult; Z79.899 Other long term (current) drug therapy
CPT/HCPCS: 36415; 80048; 85014; 85018; 85025; 86850; 86900; 86901; 88304; 88305; 88307; 88342; A4649; C9145; J0131; J0690; J1100; J1171; J1308; J2003; J2250; J2405; J2704; J2795; J3010; J7120

== ENCOUNTER → 2024-10-29 07:58 | Outpatient (BNV) | payer BC, SELFPAY | PROVIDERS: Admitting Provider Surgery; PCP Internal Medicine; Visit Provider Surgery | DX: E66.9 Obesity, unspecified (principal); Z68.34 Body mass index [BMI] 34.0-34.9, adult | CPT/HCPCS: 43659; 43775; 99024 ==

== ENCOUNTER 2024-11-06 10:03 | Outpatient (AMB) | payer BC, SELFPAY ==
--- NOTE | 2024-11-06 10:11 | A.OFFVIS_ITS ---
VS Expanded 11/06/24 10:27 BP 124/68 Blood Pressure Location Rt brachial Blood Pressure Position Sitting Pulse 56 Pulse Source Pulse Oximeter Temp 97.0 F Temperature Source Temporal Artery Scan Pulse Oximetry 99 Oxygen Delivery Method Room Air Height 5 ft 7 in Weight 211 lb 6.4 oz BMI 33.1 Body Fat % 31.8 Body Fat Mass 67.2 Fat Free Mass 144.0 Visceral Fat Rating 17.0 Body Water % 47.9 Body Water Mass 101.2 Muscle Mass/Score 137.0 Basal Metabolic Rate/Score 1,932 Intake Visit Reasons: OV PO LSG 10/29/2024 Supervisor Burling And Joining Required: Yes Supervisor Burling And Joining Services: Supervisor Burling And Joining Present Supervisor Burling And Joining Name: hospital cmi Allergies No Known Allergies Allergy (Verified 11/06/24 10:28) Medication List - Last Reconciled 11/06/24 by DEBBIE Pierce pantoprazole 40 mg PO DAILY sucralfate 10 mL PO BID HPI Comments Details: 54-year-old male returns to the office today in follow-up. He is 8 days post sleeve gastrectomy performed on 10/29/2024. Weight today is 211.4 lb with a BMI of 33.1. Fair life shake, 8 oz at 10-12 and 2-4 and the whole bottle at 6-8 Tolerating 50 60 oz of water. [facility] Medical History (Updated 10/31/24 @ 00:02 by Thee Vargas) BMI 35.0-35.9,adult GERD (gastroesophageal reflux disease) Obstructive sleep apnea on CPAP Obesity Surgical History (Updated 11/06/24 @ 10:29 by Sayra Davis CMA) S/P gastric sleeve procedure History of esophagogastroduodenoscopy (EGD) (10/09/24) Hx of colonoscopy Hx of hernia repair Family History Mother No problems noted. Father No problems noted. Daughter Mandel Syndrome Thyroid condition Daughter Thyroid condition Son No problems noted. Social History (Updated 10/26/24 @ 11:27 by Tari Gibbs RN) Household Members: Family Housing: House Are you a primary director of primary care to a significant other at home: No Do you presently have visiting nurse or other home services: Yes 75 years or older and lives alone: No Alcohol intake: current Alcohol intake frequency: a few times a month Patient Tobacco Use Status: Never used Tobacco Physical Exam GI Inspection: Yes incision (Clean, dry, intact.) Assessment & Plan Assessment & Plan (1) S/P laparoscopic sleeve gastrectomy: Code(s): Z98.84 - Bariatric surgery status Category: Surgical Plan: POD 8 s/p LSG on 10/29/[address] Miranda Weight loss prior to surgery was 26.8 pounds or 10.8 % TBWL. Original weight on 08/19/2024 was 246.6 pounds and op weight was 219.8 pounds. Be sure to text Dr Miranda exactly 1 week after surgery your weight from your home scale so he can adjust your meal plan. Continue meal plan until f/u abhay Porter in 2 weeks May shower, no submersion in bath for another week Continue abdominal binder with activity and exercise for the next 2 weeks. Exercise prior to surgery was treadmill and may resume No abdominal exercises for 6 weeks post operatively Will be emailed link to post op video for review Reminded of the pace of drinking, 2 mL per minute, 1 oz/15 min.
[2024-11-06 10:27] VITALS: BP 124/68; PULSE 56; TEMP 36.1; O2SAT 99; BMI 33.1
--- OUTSIDE RECORDS SUMMARY | 2024-11-06 10:57 | XMS_ITS | Clinical Summary ---
Author Organization [facility] Address [address] [place] [address] Care Team Providers Care Stars Coordinator Name Role Phone Alysha Arzate MD Primary Care Provider [phone] Allergies No known active allergies Medications oxyCODONE [...] Description 12/08/2024 2:00 PM EDT Office Visit [facility] Urologic Surgery [address] [phone] Pam Herrera PA-C [address] [place] [address] Health Maintenance Due Date Last Done Comments Hepatitis C Virus Screening 1969 HIV Screening 1982 DTaP/Tdap/Td Vaccines (1 - Tdap) 1988 Hepatitis B Vaccines (1 of 3 - 19+ 3-dose series) 1988 Colonoscopy 2014 Pneumococcal Vaccines 50+ (1 of 1 - PCV) 2019 Zoster (Shingles) Vaccine (1 of 2) 2019 Influenza Vaccine 10/02/2024 2022, 02/08/2021 COVID-19 Vaccine ( season) 2024 Insurance [facility] Advance Directives * Full Code (Latest Code Status on File) Date Activated Date Inactivated Comments 01/04/2023 9:37 AM Care Teams Stars Coordinator Relationship Specialty Start Date End Date Alysha Arzate MD PCP - General 07/13/22
--- OUTSIDE RECORDS SUMMARY | 2024-11-06 10:57 | XMS_ITS | Clinical Summary ---
Author Organization [facility] Address [address] [place] [address] Care Team Providers Care Utility Systems Repairer Operator Name Role Phone Alysha Arzate MD Primary Care Provider [phone] Allergies No known active allergies Medications blood [...] Team Description 10/16/2024 4:45 PM EDT Telemedicine [facility] [address] [facility] [address] [place] [phone] Alysha Arzate MD Elevated fasting [...] WITH BIOPSY; Surgeon: Jf Funes MD; Location: [facility]; Service: Bariatrics; Laterality: N/A; Family [...] Info) Description 02/04/2025 4:30 PM EST Telemedicine [address] [phone] Alysha Arzate MD [address] [place] [phone] 06/14/2025 1:00 PM EDT Office Visit [address] [phone] Alysha Arzate MD [address] [place] [phone] Health Maintenance Due Date Last Done Comments DTaP,Tdap,and Td Vaccines (1 - Tdap) 1988 Hepatitis B Vaccines (2 of 3 - Hep B Twinrix 3-dose series) 05/24/2016 04/26/2016 Pneumococcal Vaccine: 50+ Years (1 of 1 - PCV) 2019 Zoster Vaccines (1 of 2) 2019 COVID-19 Vaccine (1 - 2023-2 5 season) 2024 Influenza Vaccine (#1) 2024 , 02/08/2021 Social [...] AM EDT) Cholesterol Total 172 <200 mg/dL [facility] HDL Cholesterol 44 > OR = 40 mg/dL [facility] Triglycerides 61 <150 mg/dL [facility] LDL Cholesterol 113(H) mg/dL (calc) [facility] Comment: Reference range: <100 Desirable range <100 mg/dL for primary prevention; <70 mg/dL for patients with CHD or diabetic patients with > or = 2 CHD risk factors. LDL-C is now calculated using the Saman calculation, which is a validated novel method providing better accuracy than the Friedewald equation in the estimation of LDL-C. Jose Alberto PALMER et al. ERASTO. 2013;310(19): 0599-4519 (http://education.[employer]faq/QKL289) Chol/HDLC Ratio 3.9 <5.0 (calc) [facility] Non HDL Cholesterol 128 <130 mg/dL (calc) [facility] Comment: For patients with diabetes plus 1 major ASCVD risk factor, treating to a non-HDL-C goal of <100 mg/dL (LDL-C of <70 mg/dL) is considered a therapeutic option. Blood Venous blood specimen / Unknown 06/16/2024 10:26 AM EDT 06/16/2024 10:27 AM EDT Narrative [facility] - 06/16/2024 10:54 PM EDT FASTING:YES FASTING: YES Result [facility] Alysha Arzate MD LAB BLOOD ORDERABLES Final R esult [facility]) [facility] [address] [place] [phone] * Depression Screening (06/03/2023) [facility] Depression Screening abstracted [facility] Provider HEALTH MAINTENANCE Final Result * HIV Screening (05/21/2022) [facility] HIV Screening abstracted [facility] Provider HEALTH MAINTENANCE Final Result * Hepatitis C Screening (05/21/2022) [facility] Hepatitis C Screening abstracted [facility] Provider HEALTH MAINTENANCE Final Result * Colonoscopy (05/27/2020) [facility] Colonoscopy abstracted,no interpretation Anatomical Region Laterality Modality Other us Historical Provider HEALTH MAINTENANCE Final Result from Last 3 Months or Most Recently Relevant to Health Maintenance Insurance [facility] Care Teams Utility Systems Repairer Operator Relationship Specialty Start Date End Date Alysha Arzate MD [address] [phone] PCP - General Internal Medicine 06/08/24
--- OUTSIDE RECORDS SUMMARY | 2024-11-06 10:58 | XMS_ITS | Clinical Summary ---
Author Organization [facility] Address [address] [place] [address] Care Team Providers Care Refrigeration Repair Supervisor Name Role Phone An Arzate APRN Primary [...] age to complete this topic Care Teams Refrigeration Repair Supervisor Relationship Specialty Start Date End Date An Arzate APRN PCP - General Primary Care 04/10/16
== END 2024-11-06 11:02 | disposition home or self-care (01) ==
LOC: HO.HBS 10:03
PROVIDERS: Visit Provider Physician Assistant Surgical
DX: Z98.84 Bariatric surgery status (principal)
CPT/HCPCS: 99024

== ENCOUNTER → 2024-11-06 10:03 | Outpatient (BNVA) | payer BC, SELFPAY | PROVIDERS: Visit Provider Physician Assistant Surgical | DX: E66.9 Obesity, unspecified (principal); Z68.32 Body mass index [BMI] 32.0-32.9, adult; Z98.84 Bariatric surgery status; Z13.89 Encounter for screening for other disorder ==

== ENCOUNTER 2024-11-12 14:08 | Outpatient (AMB) | payer BC, SELFPAY ==
--- OUTSIDE RECORDS SUMMARY | 2009-11-07 20:00 | XMS_ITS | Continuity of Care Document ---
Author Organization [facility] vices Address [address] [place] [address] Phone Care Team Providers Care Clinical Nurse Reviewer Name Role Phone Unavailable Unavailable Unavailable Medications [...] - Active Procedures Procedure Date EXPANDED OUT/PT IMMUNIZATION ADMINISTRAT MMR VACCINE, SC EXPANDED OUT/PT MMR VACCINE, SC EXPANDED OUT/PT GLUCOSE, RANDOM (IH) NEW Level 2 - Expanded MEDICAL NUTRITION, INDIV, IN ELECTROCARDIOGRAM, COMPL VISION SCREENING HIV-1/HIV-2 AB, REFLEX WB PREV VISIT, EST, AGE 40-64 URINALYSIS (IH) RPR, REFLEX TO FTA CHLAMYDIA DNA GONORRHEA, DNA PREV NEW 18-39 NEW Level 2 - Expanded TSH CBC W/O DIFF HEPATIC FUNCTION PANEL LIPID PANEL COMPREHEN METABOLIC PANEL Advance Directives Directive Yes / No Effective Date File Name No Information Encounters Encounter Description Practice Location Reason(s) For Visit Diagnoses Date Provider Providers Copied on Encounter [facility], [address] [place] [address], [address], [place] tel:[phone] Conversion ENCOUNTERS FOR OTHER SPECIFIED ADMINISTRATIV E PURPOSE [address] [facility], [address] [place] [address], [address], [place] tel:[phone] Historic Immunization Location No Information 0 No Information EXPANDED OUT/PT [facility], [address] [place] [address], [address], [place] tel:[phone] [facility] Adult Medicine No Information [address] [facility], [address] [place] [address], [address], [place] tel:[phone] Conversion Need For Vaccination MMR 0 No Information EXPANDED OUT/PT [facility], [address] [place] [address], [address], [place] tel:[phone] [facility] Adult Medicine No Information [address] [facility], [address] [place] [address], [address], [place] tel:[phone] Conversion visit for: screening exam lipoid disordersSPEC IAL SCREENING EXAMINATION FOR RUBELLAvisit for: screening exam viral disease measles 0 No Information EXPANDED OUT/PT [facility], [address] [place] [address], [address], [place] tel:[phone] [facility] Adult Medicine No Information [address] [facility] Level 2 - Expanded [facility], [address] [place] [address], [address], [place] tel:[phone] [facility] Podiatry No Information [address] [facility], [address] [place] [address], [address], [place] tel:[phone] Conversion 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 [address] [facility], [address] [place] [address], [address], [place] tel:[phone] [facility] Adult Medicine No Information [address] [facility], [address] [place] [address], [facility], tel:[phone] Conversion MORBID OBESITY [address] [facility], [address] [place] [address], [facility], tel:[phone] Conversion No Information [address] [facility], [address] [place] [address], [place] tel:[phone] Conversion NORMAL ROUTINE HISTORY AND PHYSICALvisit for: screening exam venereal diseaseOTHER AND UNSPECIFIED HYPERLIPIDEMI A 0 No Information PREV VISIT, EST, AGE 40-[address] [facility], [address] [place] [address], [facility], tel:[phone] [facility] Adult Medicine No Information [address] [facility], [address] [place] [address], [facility], tel:[phone] Conversion CONJUNCTIVITI S - RIGHT EYE 0 No Information PREV NEW 18-[address] [facility], [address] [place] [address], [facility], [place] tel:[phone] [facility] Adult Medicine No Information 0 No Information Family History Family Member Type Diagnosis Age At Onset No Information Immunizations Vaccine Date Status Comments IMMUNIZATION ADMINISTRAT administered Charis rce: New Immunization Record MMR VACCINE, [place] administered Source: New Immunization Record MMR VACCINE, [place] administered Source: New Immunization Record Payers Payer name Insurance type Covered republican ID Authoriza tion(s) No Information Social History Type Description Quantity Date Captured Comments Sex Male Smoking Status No Information Sexual Orientation Straight or heterosexual May Chief Complaint And Reason For Visit No [...]
--- NOTE | 2024-11-12 14:09 | A.OFFWM_ITS ---
Intake Intake Visit Reasons: TV PO LSG 10/29/24 Allergies No Known Allergies Allergy (Verified 11/06/24 10:28) PFSH Medical History (Updated 11/07/24 @ 00:01 by Background Daludwigon) BMI 35.0-35.9,adult GERD (gastroesophageal reflux disease) Obstructive sleep apnea on CPAP Obesity Surgical History (Updated 11/07/24 @ 00:01 by Background Daswapnil) S/P gastric sleeve procedure History of esophagogastroduodenoscopy (EGD) (10/09/24) Hx of colonoscopy Hx of hernia repair Family History Mother No problems noted. Father No problems noted. Daughter Mandel Syndrome Thyroid condition Daughter Thyroid condition Son No problems noted. Social History Household Members: Family Housing: House Are you a primary child adolescent care to a significant other at home: No Do you presently have visiting nurse or other home services: Yes 75 years or older and lives alone: No Alcohol intake: current Alcohol intake frequency: a few times a month Patient Tobacco Use Status: Never used Tobacco Behavioral Health Assessment Weight Management Therapy Therapy Notes Details Subjective: Patient underwent weight loss surgery on 10/29/2024. Preoperative weight was 219 lbs; most recent weight is 206 lbs as of today. Patient reports no pain or complications during recovery and is tolerating the liquid diet without difficulty. Mood remains stable. Primary support is his . Patient occasionally experiences thoughts about food or hunger but denies significant cravings or preoccupation. He has been cleared for light physical activity, including walking and stationary biking. Patient took only one week off from work postoperatively, citing boredom at home, and returned to work last week. He was advised to set reminders to ensure timely consumption of meal replacement shakes during his workday. Objective: Patient presents for a behavioral health post-op follow-up. Conducted an emotional check-in and administered the PHQ-9. Provided psychoeducation on post- bariatric emotional adjustment, distinguishing hunger from cravings, and strategies for mindful eating. Reviewed adherence to the Weight Management Program, offered tips for long-term success, and shared program resources, including an invitation to the Facebook support group. Assessment/Response: * Mental status: WNL * Risk reported/identified: None Questionnaires PHQ-9 Over the last 2 weeks, how often have you been bothered by any of the following problems? 1. Little interest or pleasure in doing things: not at all 2. Feeling down, depressed, or hopeless: not at all 3. Trouble falling or staying asleep, or sleeping too much: not at all 4. Feeling tired or having little energy: not at all 5. Poor appetite or overeating: not at all 6. Feeling bad about yourself - or that you are a failure or have let yourself or your family down: not at all 7. Trouble concentrating on things, such as reading the newspaper or watching television: not at all 8. Moving or speaking so slowly that other people could have noticed. Or the opposite - being so fidgety or restless that you have been moving around a lot more than usual: not at all 9. Thoughts that you would be better off or of hurting yourself in some way: not at all Total score: 0 Depression Screening Interpretation: Negative Depression Screening Done: Yes 31378 - PHQ-9 Billing: Yes Source: Developed by Drs. Pablo Burch, Kandis Boyer, Rogelio Reddy and colleagues, with an educational russell from [email or web address]. Assessment & Plan Assessment & Plan (1) Adjustment disorder: Code(s): F43.20 - Adjustment disorder, unspecified (2) Inappropriate diet or eating habits: Code(s): Z72.4 - Inappropriate diet and eating habits (3) S/P laparoscopic sleeve gastrectomy: Code(s): Z98.84 - Bariatric surgery status Plan No safety concerns or issues were identified that would necessitate behavioral health monitoring. The patient declined further visits but is aware of the available behavioral health support if needed in the future. Telehealth Telehealth Telehealth Platform: [facility] Location of provider rendering services: other (Home office. [place], [place]) Location of patient: address on file Patient Identification confirmed using: Name, : Yes Telehealth method: voice only Patient verbally consented to treatment: Yes Patient verbally consented to billing insurance company: Yes Patient informed of any privacy concerns related to visit: Yes Minutes spent on Phone/Video with Pt.: 30 Coding Level of Care Code Established Pt Tele Psytx 30 mins (31992) Patient Type Established Diagnoses Adjustment disorder F43.20 Inappropriate diet or eating habits Z72.4 S/P laparoscopic sleeve gastrectomy Z98.84 Additional Codes PHQ-9 - 96815 - PHQ-9 Billing: Yes ([id number]) Time Spent (min) 30
--- OUTSIDE RECORDS SUMMARY | 2024-11-12 17:56 | XMS_ITS | Clinical Summary ---
Author Organization [facility] Address [address] [place] [address] Care Team Providers Care Electrician Outside Name Role Phone An Arzate APRN Primary [...] age to complete this topic Care Teams Electrician Outside Relationship Specialty Start Date End Date An Arzate APRN PCP - General Primary Care 04/10/16
--- OUTSIDE RECORDS SUMMARY | 2024-11-12 17:56 | XMS_ITS | Clinical Summary ---
Author Organization [facility] Address [address] [place] [address] Care Team Providers Care Wolf Hunter Name Role Phone Alysha Arzate MD Primary [...] Description 12/08/2024 2:00 PM EDT Office Visit [facility] Urologic Surgery [address] [phone] Pam Herrera PA-C [address] [place] [address] Health Maintenance Due Date Last Done Comments Hepatitis C Virus Screening 1969 HIV Screening 1982 DTaP/Tdap/Td Vaccines (1 - Tdap) 1988 Hepatitis B Vaccines (1 of 3 - 19+ 3-dose series) 1988 Colonoscopy 2014 Pneumococcal Vaccines 50+ (1 of 1 - PCV) 2019 Zoster (Shingles) Vaccine (1 of 2) 2019 Influenza Vaccine 10/02/2024 2022, 02/08/2021 COVID-19 Vaccine ( season) 2024 Insurance [facility] FEDERAL Advance Directives * Full Code (Latest Code Status on File) Date Activated Date Inactivated Comments 01/04/2023 9:37 AM Care Teams Wolf Hunter Relationship Specialty Start Date End Date Alysha Arzate MD PCP - General 07/13/22
== END 2024-11-12 14:40 | disposition home or self-care (01) ==
LOC: HO.HBST 14:08
PROVIDERS: PCP Internal Medicine; Visit Provider Counselor Mental Health
DX: F43.20 Adjustment disorder, unspecified (principal); Z72.4 Inappropriate diet and eating habits; Z98.84 Bariatric surgery status
CPT/HCPCS: 90832

== ENCOUNTER 2024-12-04 10:16 | Outpatient (AMB) | payer BC, SELFPAY ==
--- NOTE | 2024-12-04 10:07 | MHC.OFFVISWM ---
VS Expanded 12/04/24 10:10 Height 5 ft 7 in Weight 196 lb BMI 30.7 Intake Visit Reasons: TV PO LSG 10/29/2024 Apparatus Repair Mechanic Required: Yes Apparatus Repair Mechanic Name: [id number] Information Interpreted: clinical only Allergies No Known Allergies Allergy (Verified 11/06/24 10:28) Medication List - Last Reconciled 12/04/24 by DEBBIE Li pantoprazole 40 mg PO DAILY sucralfate 10 mL PO BID HPI Comments Details: This?is a?54?yo M who is s/p LSG 10/29/2024. Presents for 5 week post op visit. Weight today is 196lbs, representing a 15.4 pound weight loss since last visit on 11/06/2024 with a BMI today of 30.7.? No complaints of nausea, emesis, abdominal pain or reflux, or constipation. Present meal plan includes: Fairlife shakes, 8oz x 3 Fitcrunch bar x 1 plans to start solid food next week as he will be 6w postop Exercise routine includes: walks outside on treadmill 1 hour 15 min every day, 400 peggy PFSH Medical History (Updated 11/07/24 @ 00:01 by Background Daswapnil) BMI 35.0-35.9,adult GERD (gastroesophageal reflux disease) Obstructive sleep apnea on CPAP Obesity Surgical History (Updated 11/07/24 @ 00:01 by Background Daludwig[place]) S/P gastric sleeve procedure History of esophagogastroduodenoscopy (EGD) (10/09/24) Hx of colonoscopy Hx of hernia repair Family History Mother No problems noted. Father No problems noted. Daughter Mandel Syndrome Thyroid condition Daughter Thyroid condition Son No problems noted. Social History Household Members: Family Housing: House Are you a primary career services representative to a significant other at home: No Do you presently have visiting nurse or other home services: Yes 75 years or older and lives alone: No Alcohol intake: current Alcohol intake frequency: a few times a month Patient Tobacco Use Status: Never used Tobacco Telehealth Telehealth Telehealth Platform: Telephone Location of provider rendering services: other Location of patient: address on file Patient Identification confirmed using: Name, : Yes Telehealth method: voice only Patient verbally consented to treatment: Yes Patient verbally consented to billing insurance company: Yes Patient informed of any privacy concerns related to visit: Yes Minutes spent on Phone/Video with Pt.: 15 Assessment & Plan Assessment & Plan (1) Obesity: Code(s): E66.9 - Obesity, unspecified Category: Medical Qualifiers: Obesity type: due to excess calories Obesity classification: adult class 2 (BMI 35 - 39.9) Serious obesity comorbidity presence: with serious comorbidity Body mass index: BMI 38.0-38.9 Qualified Code(s): E66.812 - Obesity, class 2; E66.01 - Morbid (severe) obesity due to excess calories; Z68.38 - Body mass index [BMI] 38.0-38.9, adult (2) S/P laparoscopic sleeve gastrectomy: Code(s): Z98.84 - Bariatric surgery status Category: Surgical Plan Pt to continue meal plan per Dr Gamboa and communicate weekly. He has a good exercise regimen. Reviewed heavy lifting restriction until 6w postop. Continue PPI and carafate. RTC Feb 05 9:15am for TV.
[2024-12-04 10:10] VITALS: BMI 30.7
--- OUTSIDE RECORDS SUMMARY | 2024-12-04 11:07 | XMS_ITS | Clinical Summary ---
[facility] Organization [facility] Address [address] [place] [address] Care Team Providers Care Air Conditioning Specialist Name Role Phone An Arzate APRN Primary [...] age to complete this topic Care Teams Air Conditioning Specialist Relationship Specialty Start Date End Date An Arzate APRN PCP - General Primary Care 04/10/16
--- OUTSIDE RECORDS SUMMARY | 2024-12-04 11:07 | XMS_ITS | Clinical Summary ---
Author Organization [facility] Address [address] [place] [id number] Care Team Providers Care Food And Nutrition Services Assistant Name Role Phone Alysha Arzate MD Primary Care Provider [phone] Allergies No known active allergies Medications oxyCODONE [...] Description 12/08/2024 2:00 PM EDT Office Visit [facility] [address] [phone] Pam Herrera PA-C [address] [place] [address] Health Maintenance Due Date Last Done Comments Hepatitis C Virus Screening 1969 HIV Screening 1982 DTaP/Tdap/Td Vaccines (1 - Tdap) 1988 Hepatitis B Vaccines (1 of 3 - 19+ 3-dose series) 1988 Colonoscopy 2014 Pneumococcal Vaccines 50+ (1 of 1 - PCV) 2019 Zoster (Shingles) Vaccine (1 of 2) 2019 Influenza Vaccine 10/02/2024 2022, 02/08/2021 COVID-19 Vaccine ( season) 2024 Insurance [facility] Advance Directives * Full Code (Latest Code Status on File) Date Activated Date Inactivated Comments 01/04/2023 9:37 AM Care Teams Food And Nutrition Services Assistant Relationship Specialty Start Date End Date Alysha Arzate MD PCP - General 07/13/22
--- OUTSIDE RECORDS SUMMARY | 2024-12-04 11:07 | XMS_ITS | Clinical Summary ---
Author Organization [facility] Address [address] [place] [address] Care Team Providers Care Mgmt Consultant Name Role Phone Alysha Arzate MD Primary Care Provider [phone] Allergies No known active allergies Medications blood [...] Team Description 10/16/2024 4:45 PM EDT Telemedicine [facility] [address] [facility] [address] [place] [phone] Alysha Arzate MD Elevated fasting blood sugar (Primary Dx); Hypercholesterolemia; Hypertriglyceridemia; Vitamin D deficiency; B12 deficiency from Last 3 Months Immunizations Immunization Administration Dates Next Due Hepatitis A-Hepatitis B Adult (Twinrix) 18yo and older 04/26/2016 Influenza Quadrivalent, 0.5m l, preservative free (Fluarix; FluLaval; Fluzone) ages 6mo and older (Afluria) 3yo and older 2022,02/08/2021 Surgical History Surgery Date Site/Laterality Comments HERNIA REPAIR PROCEDURE:HERNIA REPAIR;COMMENT:childhood UPPER GASTROINTESTINAL ENDOSCOPY 09/30/2020 N/A PROCEDURE:UPPER GASTROINTESTINAL ENDOSCOPY;COMMENT:Procedure: UPPER ENDOSCOPY-EGD WITH BIOPSY; Surgeon: Jf Funes MD; Location: [facility]; Service: Bariatrics; Laterality: N/A; Family History [...] Date Recorded What is your living situation? Unrecognized valu e 10/16/2024 Sex and Gender Information Value Date [...] Info) Description 02/04/2025 4:30 PM EST Telemedicine [address] [phone] Alysha Arzate MD [address] [place] [phone] 06/14/2025 1:00 PM EDT Office Visit [address] [phone] Alysha Arzate MD [address] [place] [phone] Health Maintenance Due Date Last Done Comments [...] 06/10/2023 Colorectal Cancer Screening: Colonoscopy 05/27/2030 05/27/2020 RSV Immunization Adult Patients (1 - 1-dose 75+ series) 2044 Hepatitis A Vaccines Aged Out 04/26/2016 No [...] AM EDT) Cholesterol Total 172 <200 mg/dL [facility] HDL Cholesterol 44 > OR = 40 mg/dL [facility] Triglycerides 61 <150 mg/dL [facility] LDL Cholesterol 113(H) mg/dL (calc) [facility] Comment: Reference range: <100 Desirable range <100 mg/dL for primary prevention; <70 mg/dL for patients with CHD or diabetic patients with > or = 2 CHD risk factors. LDL-C is now calculated using the Saman calculation, which is a validated novel method providing better accuracy than the Friedewald equation in the estimation of LDL-C. Jose Alberto SS et al. ERASTO. 2013;310(63): 7072-9753 (http://education.BioScrip/faq/PCC682) Chol/HDLC Ratio 3.9 <5.0 (calc) [facility] Non HDL Cholesterol 128 <130 mg/dL (calc) [facility] Comment: For patients with diabetes plus 1 major ASCVD risk factor, treating to a non-HDL-C goal of <100 mg/dL (LDL-C of <70 mg/dL) is considered a therapeutic option. Blood Venous blood specimen / Unknown 06/16/2024 10:26 AM EDT 06/16/2024 10:27 AM EDT Narrative [facility] ([facility] - 06/16/2024 10:54 PM EDT FASTING:YES FASTING: YES Alysha Arzate MD LAB BLOOD ORDERABLES Final R esult [facility] ([facility] [address] [place] [phone] * Depression Screening (06/03/2023) Depression Screening abstracted Historical Provider HEALTH MAINTENANCE [...] Most Recently Relevant to Health Maintenance [place] [address] Care Teams Mgmt Consultant Relationship Specialty Start Date End Date Alysha Arzate MD [address] [phone] PCP - General Internal Medicine 06/08/24
== END 2024-12-04 10:26 | disposition home or self-care (01) ==
LOC: HO.HBS 10:16
PROVIDERS: PCP Nurse Practitioner Psychiatric/Mental Health; Visit Provider Physician Assistant Surgical
DX: E66.9 Obesity, unspecified (principal); Z68.30 Body mass index [BMI] 30.0-30.9, adult; Z90.3 Acquired absence of stomach [part of]; Z98.84 Bariatric surgery status
CPT/HCPCS: 99024

== ENCOUNTER 2025-02-05 09:26 | Outpatient (AMB) | payer BC, SELFPAY ==
--- NOTE | 2025-02-05 09:23 | A.OFFVIS_ITS ---
VS Expanded 02/05/25 09:28 Height 5 ft 7 in Weight 172 lb BMI 26.9 Intake Visit Reasons: Phone PO LSG 10/29/24 Freight Claim Investigator Required: Yes Freight Claim Investigator Name: Burak Ruiz Information Interpreted: clinical only Allergies No Known Allergies Allergy (Verified 11/06/24 10:28) Medication List - Last Reconciled 02/05/25 by DEBBIE Li No Known Home Meds HPI Comments Details: This is a 54 yo M who is s/p LSG 10/29/2024. Presents for 3mo post op visit. Weight today is 172lbs, representing a 24 pound weight loss since last visit on 12/04/2024 with a BMI today of 26.9. No complaints of nausea, emesis, abdominal pain or reflux, or constipation. Present meal plan includes: Fairlife shakes, 8oz x 2 Fitcrunch bar x 1 one meal of chicken breast and broccoli but he is not counting bites/forkfuls taking MVI Exercise routine includes: walks outside on treadmill 1 hour 15 min every day, 400 peggy He notes some excess skin of arms, legs, and abdomen. He has not noticed any rashes at this time. [facility] Medical History (Updated 02/05/25 @ 09:40 by DEBBIE Li) BMI 35.0-35.9,adult GERD (gastroesophageal reflux disease) Obstructive sleep apnea on CPAP Obesity Surgical History (Updated 11/07/24 @ 00:01 by Thee Vargas) S/P gastric sleeve procedure History of esophagogastroduodenoscopy (EGD) (10/09/24) Hx of colonoscopy Hx of hernia repair Family History Mother No problems noted. Father No problems noted. Daughter Mandel Syndrome Thyroid condition Daughter Thyroid condition Son No problems noted. Social History Household Members: Family Housing: House Are you a primary personal care assistant to a significant other at home: No Do you presently have visiting nurse or other home services: Yes 75 years or older and lives alone: No Alcohol intake: current Alcohol intake frequency: a few times a month Patient Tobacco Use Status: Never used Tobacco Telehealth Telehealth Telehealth Platform: Telephone Location of provider rendering services: practice address Location of patient: address on file Patient Identification confirmed using: Name, : Yes Telehealth method: voice only Patient verbally consented to treatment: Yes Patient verbally consented to billing insurance company: Yes Patient informed of any privacy concerns related to visit: Yes Minutes spent on Phone/Video with Pt.: 15 Assessment & Plan Assessment & Plan (1) S/P laparoscopic sleeve gastrectomy: Code(s): Z98.84 - Bariatric surgery status Category: Surgical (2) Overweight: Code(s): E66.3 - Overweight Category: Medical Plan I asked him to measure forkfuls of his meal. Recommended no more than 4-6 forkfuls each of chicken and vegetables to avoid taking too large of portions per meal. He agrees to measure portions appropriately. Continue current exercise regimen. Off PPI and sucralfate, no reflux. At this time recommended supportive clothing to manage excess skin. He will let us know if he gets any rashes. I discussed the option of skin removal surgery in the future. RTC 3mo with Aisha.
[2025-02-05 09:28] VITALS: BMI 26.9
== END 2025-02-05 09:43 | disposition home or self-care (01) ==
LOC: HO.HBS 09:26
PROVIDERS: PCP Nurse Practitioner Psychiatric/Mental Health; Visit Provider Physician Assistant Surgical
DX: E66.3 Overweight (principal); Z68.26 Body mass index [BMI] 26.0-26.9, adult; Z90.3 Acquired absence of stomach [part of]; Z98.84 Bariatric surgery status
CPT/HCPCS: 98967